=== PATIENT | male | born 1965 | race Caucasian/White ===

== ENCOUNTER 2017-12-31 10:22 | Inpatient (IN) | payer MEDICAID ==
[~2017-12-31] VITALS: Ht 165.1 cm; Wt 45.9 kg
[2017-12-31 10:27] VITALS: BP 110/90
[2017-12-31] MEDS ORDERED: ACETAMINOPHEN 325 MG TAB PO PRN (13:40)
[2017-12-31] MEDS ORDERED: HYDROcodone/APAP 7.5/325 MG 1 TAB PO PRN (13:40)
[2017-12-31 14:15] VITALS: BP 128/81
[2017-12-31 15:28] LABS: BASOPHILS % (AUTO) 0.4 % (0.0-2.0); EOSINOPHILS # (AUTO) 0.1 K/uL (0-0.4); HEMATOCRIT 41.5 % (36-52); HEMOGLOBIN 13.8 g/dL (12.0-18.0); LYMPHOCYTES # (AUTO) 0.8 K/uL (2.0-11.5); LYMPHOCYTES % (AUTO) 15.9 % (20.5-51.1); MEAN CORPUSCULAR HEMOGLOBIN 28 pg (27-31); MEAN CORPUSCULAR HGB CONC 33 g/dL (33-37); MONOCYTES # (AUTO) 0.3 K/uL (0.8-1.0); MONOCYTES % (AUTO) 5.9 % (1.7-9.3); NEUTROPHILS # (AUTO) 3.6 K/uL (1.8-7.7); NEUTROPHILS % (AUTO) 74.8 % (42.2-75.2); PLATELET COUNT (AUTO) 235 K/uL (140-450); RED BLOOD CELL COUNT(AUTO) 4.89 MIL/uL (4.20-6.10); RED CELL DISTRIBUTION WIDTH 13.4 % (11.6-13.7); WHITE BLOOD COUNT (AUTO) 4.8 K/uL (4.8-10.8)
[2017-12-31 15:45] LABS: CARBON DIOXIDE 26.7 mmol/L (21-32); CREATININE 0.5 mg/dL (0.7-1.3); POTASSIUM 4.6 mmol/L (3.5-5.1)
[2017-12-31 15:51] LABS: ANION GAP 14.9 (8-16)
[2017-12-31 15:57] LABS: CHOL/HDL RATIO 1.8 (1-4.5); FREE T4 (FREE THYROXINE) 0.86 ng/dL (0.76-1.46); MAGNESIUM 1.9 mg/dL (1.8-2.4); PHOSPHORUS 3.8 mg/dL (2.5-4.9); THYROID STIMULATING HORMONE 2.6 uIU/mL (0.34-3.74)
[2017-12-31 16:00] VITALS: BP 122/83
[2017-12-31] MEDS: DEXT 5% / NACL 0.9% 500 ML IV SCH (18:00)
[2017-12-31] MEDS ORDERED: METOCLOPRAMIDE 10 MG/10 ML SYRP UDC GT PRN (18:10)
[2017-12-31] MEDS ORDERED: SODIUM PHOSPHATE 118 ML ENEM RC PRN (18:10)
[2017-12-31] MEDS ORDERED: ALBUTEROL 0.083% 2.5 MG/3 ML NEBU INH PRN (18:10)
[2017-12-31] MEDS ORDERED: BISACODYL 10 MG SUPP RC PRN (18:10)
[2017-12-31] MEDS ORDERED: NYSTATIN CRE 100 MU/GM 15 GM TUBE TP PRN (18:30)
[2017-12-31] MEDS ORDERED: guaiFENesin 600 MG TABER PO PRN (18:30)
[2017-12-31] MEDS: FLUTICASONE PROPIONATE 100 MCG/ACTUATION INH IH SCH (19:30)
[2017-12-31 20:00] VITALS: BP 130/90
[2017-12-31] MEDS: SODIUM CHLORIDE 1 GM TAB GT SCH (21:00)
[2017-12-31] MEDS: levETIRAcetam 100 MG/ML ORASYR GT SCH (21:00)
[2017-12-31] MEDS: DOCUSATE SODIUM 100 MG GELCAP PO SCH (21:00)
[2017-12-31] MEDS: risperiDONE 1 MG TAB PO SCH (21:00)
[2017-12-31] MEDS: BUDESONIDE 0.5 MG/2 ML NEBU INH SCH (21:14)
[2018-01-01] VITALS: BP 111/76
[2018-01-01] MEDS: DEXT 5% / NACL 0.9% 500 ML IV SCH ×3 (02:20→19:01)
[2018-01-01 04:00] VITALS: BP 120/72
[2018-01-01 06:24] LABS: BASOPHILS % (AUTO) 0.3 % (0.0-2.0); EOSINOPHILS # (AUTO) 0.1 K/uL (0-0.4); EOSINOPHILS % (AUTO) 1.7 % (0.0-4.0); HEMATOCRIT 39.1 % (36-52); HEMOGLOBIN 13.1 g/dL (12.0-18.0); LYMPHOCYTES # (AUTO) 1.1 K/uL (2.0-11.5); LYMPHOCYTES % (AUTO) 18.7 % (20.5-51.1); MEAN CORPUSCULAR HEMOGLOBIN 28 pg (27-31); MEAN CORPUSCULAR HGB CONC 34 g/dL (33-37); MEAN CORPUSCULAR VOLUME 84.6 fL (80-94); MONOCYTES # (AUTO) 0.7 K/uL (0.8-1.0); MONOCYTES % (AUTO) 10.9 % (1.7-9.3); NEUTROPHILS # (AUTO) 4.1 K/uL (1.8-7.7); NEUTROPHILS % (AUTO) 68.4 % (42.2-75.2); PLATELET COUNT (AUTO) 234 K/uL (140-450); RED BLOOD CELL COUNT(AUTO) 4.62 MIL/uL (4.20-6.10); RED CELL DISTRIBUTION WIDTH 13.7 % (11.6-13.7)
[2018-01-01] MEDS: LEVOTHYROXINE 0.05 MG TAB GT SCH (06:28)
[2018-01-01 06:39] LABS: MAGNESIUM 1.9 mg/dL (1.8-2.4); PHOSPHORUS 3.6 mg/dL (2.5-4.9)
[2018-01-01 06:40] LABS: ANION GAP 10.7 (8-16); CARBON DIOXIDE 25.8 mmol/L (21-32); CREATININE 0.4 mg/dL (0.7-1.3); POTASSIUM 3.5 mmol/L (3.5-5.1)
[2018-01-01] MEDS: BUDESONIDE 0.5 MG/2 ML NEBU INH SCH ×2 (06:50→19:11)
[2018-01-01] MEDS: FLUTICASONE PROPIONATE 100 MCG/ACTUATION INH IH SCH ×2 (07:30→21:00)
[2018-01-01 08:00] VITALS: BP 105/86
[2018-01-01] MEDS: MONTELUKAST SODIUM 10 MG TAB GT SCH (09:00)
[2018-01-01] MEDS: DOCUSATE SODIUM 100 MG GELCAP PO SCH (09:00)
[2018-01-01] MEDS: risperiDONE 1 MG TAB PO SCH ×2 (09:00→21:04)
[2018-01-01] MEDS: hydrOXYzine HCL 10 MG TAB PO SCH ×3 (09:00→18:31)
[2018-01-01] MEDS: LACTULOSE 20 GM/30 ML UDC PO SCH (09:00)
[2018-01-01] MEDS: LORATADINE 10 MG TAB PO SCH (09:00)
[2018-01-01] MEDS: levETIRAcetam 100 MG/ML ORASYR GT SCH ×2 (09:00→21:04)
[2018-01-01] MEDS: BACLOFEN 10 MG TAB PO SCH ×3 (09:00→18:30)
[2018-01-01] MEDS: carBAMazepine 200 MG TAB PO SCH ×3 (09:00→18:31)
[2018-01-01] MEDS: SODIUM CHLORIDE 1 GM TAB PO SCH (09:00)
[2018-01-01] MEDS ORDERED: ALBUTEROL 2 MG/5 ML ORASYR GT SCH (09:00)
[2018-01-01] MEDS: FLUTICASONE NASAL 50 MCG/ACTUATION 16 GM BTL NS SCH (12:32)
[2018-01-01 16:00] VITALS: BP 126/84
[2018-01-01 16:03] LABS: APPEARANCE,URINE CLEAR (CLEAR); BILIRUBIN,URINE NEGATIVE (NEGATIVE); BLOOD, URINE NEGATIVE (NEGATIVE); COLOR,URINE YELLOW (YELLOW); LEUKOCYTE ESTERASE ,URINE NEGATIVE (NEGATIVE); NITRITE, URINE NEGATIVE (NEGATIVE); UGLUCOSE NEGATIVE (NEGATIVE)
[2018-01-01] MEDS ORDERED: CHLORHEXADINE GLUC 2% CLOTH TP SCH (18:00)
[2018-01-01] MEDS ORDERED: MUPIROCIN 2% OINT 22 GM TUBE TP SCH (18:30)
[2018-01-01] MEDS: DOCUSATE 100 MG/10 ML UDC PO SCH (21:04)
[2018-01-01] MEDS: SODIUM CHLORIDE 1 GM TAB GT SCH (21:06)
[2018-01-01 23:42] VITALS: BP 122/88
[2018-01-02] MEDS: DEXT 5% / NACL 0.9% 500 ML IV SCH ×2 (03:01→11:40)
[2018-01-02] MEDS: FLUTICASONE PROPIONATE 100 MCG/ACTUATION INH IH SCH (06:32)
[2018-01-02] MEDS: LEVOTHYROXINE 0.05 MG TAB GT SCH (06:32)
[2018-01-02 06:38] LABS: BASOPHILS % (AUTO) 0.6 % (0.0-2.0); EOSINOPHILS # (AUTO) 0.2 K/uL (0-0.4); HEMATOCRIT 38.9 % (36-52); LYMPHOCYTES # (AUTO) 1.2 K/uL (2.0-11.5); MEAN CORPUSCULAR HEMOGLOBIN 28 pg (27-31); MEAN CORPUSCULAR HGB CONC 34 g/dL (33-37); MEAN CORPUSCULAR VOLUME 84.4 fL (80-94); MONOCYTES # (AUTO) 0.5 K/uL (0.8-1.0); MONOCYTES % (AUTO) 10.3 % (1.7-9.3); NEUTROPHILS # (AUTO) 2.8 K/uL (1.8-7.7); NEUTROPHILS % (AUTO) 58.1 % (42.2-75.2); PLATELET COUNT (AUTO) 214 K/uL (140-450); RED BLOOD CELL COUNT(AUTO) 4.61 MIL/uL (4.20-6.10); RED CELL DISTRIBUTION WIDTH 13.6 % (11.6-13.7); WHITE BLOOD COUNT (AUTO) 4.8 K/uL (4.8-10.8)
[2018-01-02 07:06] LABS: ANION GAP 10.8 (8-16); CARBON DIOXIDE 26.7 mmol/L (21-32); CREATININE 0.5 mg/dL (0.7-1.3); POTASSIUM 3.5 mmol/L (3.5-5.1)
[2018-01-02 08:00] VITALS: BP 135/78
[2018-01-02] MEDS: BUDESONIDE 0.5 MG/2 ML NEBU INH SCH (08:11)
[2018-01-02] MEDS: hydrOXYzine HCL 10 MG TAB PO SCH ×2 (09:38→14:33)
[2018-01-02] MEDS: levETIRAcetam 100 MG/ML ORASYR GT SCH (09:38)
[2018-01-02] MEDS: BACLOFEN 10 MG TAB PO SCH ×2 (09:39→14:33)
[2018-01-02] MEDS: risperiDONE 1 MG TAB PO SCH (09:39)
[2018-01-02] MEDS: MONTELUKAST SODIUM 10 MG TAB GT SCH (09:39)
[2018-01-02] MEDS: LORATADINE 10 MG TAB PO SCH (09:39)
[2018-01-02] MEDS: carBAMazepine 200 MG TAB PO SCH ×2 (09:40→14:33)
[2018-01-02] MEDS: LACTULOSE 20 GM/30 ML UDC PO SCH (09:40)
[2018-01-02] MEDS: DOCUSATE 100 MG/10 ML UDC PO SCH (09:40)
[2018-01-02] MEDS: SODIUM CHLORIDE 1 GM TAB PO SCH (09:46)
[2018-01-02] MEDS: FLUTICASONE NASAL 50 MCG/ACTUATION 16 GM BTL NS SCH (09:47)
[2018-01-02] MEDS ORDERED: ATA10 PO (12:40)
[2018-01-02] MEDS ORDERED: BISA10SU46 RC (12:40)
[2018-01-02] MEDS ORDERED: BACL10TA4 PO (12:40)
[2018-01-02] MEDS ORDERED: CHLO118S2 TP (12:40)
[2018-01-02] MEDS ORDERED: COL100L PO (12:40)
[2018-01-02] MEDS ORDERED: FLONAS NS (12:40)
[2018-01-02] MEDS ORDERED: CARB200T7 PO (12:40)
[2018-01-02] MEDS ORDERED: RIS1 PO (12:41)
[2018-01-02] MEDS ORDERED: MYCC TP (12:41)
[2018-01-02] MEDS ORDERED: SAL1 PO (12:41)
[2018-01-02] MEDS ORDERED: LORA10TA19 PO (12:41)
[2018-01-02] MEDS ORDERED: LACT10SO11 PO (12:41)
[2018-01-02] MEDS ORDERED: SYN.05 GT (12:41)
[2018-01-02] MEDS ORDERED: SAL1 GT (12:41)
[2018-01-02] MEDS ORDERED: KEP500L GT (12:41)
[2018-01-02] MEDS ORDERED: BACTO TP (12:41)
[2018-01-02] MEDS ORDERED: LAM200 GT (12:41)
[2018-01-02] MEDS ORDERED: MONT10TA35 GT (12:41)
== END 2018-01-02 14:50 | disposition home or self-care (01) | DRG 252 ==
LOC: MED 10:22 → MTU 13:48
PROVIDERS: ADMIT Family Medicine; ATTEND Family Medicine
PROC: 0D20XYZ Change Other Device in Upper Intestinal Tract, External Approach (ICD-10-PCS; principal; 2017-12-31)
DX: K94.23 Gastrostomy malfunction (principal); R53.2 Functional quadriplegia; E87.1 Hypo-osmolality and hyponatremia; M41.9 Scoliosis, unspecified; G40.909 Epilepsy, unspecified, not intractable, without status epilepticus; K21.9 Gastro-esophageal reflux disease without esophagitis; E03.9 Hypothyroidism, unspecified; K59.09 Other constipation; F39 Unspecified mood [affective] disorder; J45.909 Unspecified asthma, uncomplicated; R58 Hemorrhage, not elsewhere classified; R63.6 Underweight; Z68.1 Body mass index [BMI] 19.9 or less, adult; Z88.0 Allergy status to penicillin; Z88.8 Allergy status to other drugs, medicaments and biological substances
CPT/HCPCS: 36415; 71045; 74018; 80048; 81003; 82150; 83036; 83605; 83690; 83735; 83880; 84100; 84439; 84443; 84484; 85025; 85610; 85730; 87081; 93005; 94640; 99285; C1758; J7042; J7613; J7626; Q0092

== ENCOUNTER 2018-08-06 21:24 | Inpatient (IN) | payer MEDICAID ==
[~2018-08-06] VITALS: Ht 165.1 cm; Wt 53.5 kg
[2018-08-06 21:24] VITALS: BP 140/62
[~2018-08-06 21:24] MED LIST: ATA10 PO; BACL10TA4 PO; BACTO TP; BISA10SU46 RC; CARB200T7 PO; CHLO118S2 TP; COL100L PO; FLONAS NS; KEP500L GT; LACT10SO11 PO; LAM200 GT; LORA10TA19 PO; MONT10TA35 GT; MYCC TP; RIS1 PO; SODI100076 GT; SODI100076 PO; SYN.05 GT
[2018-08-06] MEDS ORDERED: METO5SOL19 GT (22:08)
[2018-08-06] MEDS ORDERED: COM25S RC (22:08)
[2018-08-06] MEDS ORDERED: MULT9LIQ5 PO (22:08)
[2018-08-06] MEDS ORDERED: PRON INH (22:08)
[2018-08-06] MEDS ORDERED: POTA20SO15 PO (22:08)
[2018-08-06] MEDS ORDERED: [UNRECOGNIZED DRUG - CODE] PO (22:08)
[2018-08-06] MEDS ORDERED: ALBU4TAB21 PO (22:08)
[2018-08-06] MEDS ORDERED: CARB100T PO (22:08)
[2018-08-06] MEDS ORDERED: MIRABULK PO (22:08)
[2018-08-06 22:14] LABS: HEMATOCRIT 38.2 % (36-52); HEMOGLOBIN 12.5 g/dL (12.0-18.0); MEAN CORPUSCULAR HEMOGLOBIN 28 pg (27-31); MEAN CORPUSCULAR HGB CONC 33 g/dL (33-37); MEAN CORPUSCULAR VOLUME 85.5 fL (80-94); PLATELET COUNT (AUTO) 232 K/uL (140-450); RED BLOOD CELL COUNT(AUTO) 4.47 MIL/uL (4.20-6.10); RED CELL DISTRIBUTION WIDTH 13.1 % (11.6-13.7); WHITE BLOOD COUNT (AUTO) 9.5 K/uL (4.8-10.8)
[2018-08-06 22:26] LABS: EOSINOPHILS % (MANUAL) 2 % (0-4); LYMPHOCYTES % (MANUAL) 7 % (20-46); MONOCYTES % (MANUAL) 2 % (5-12)
[2018-08-06 22:29] LABS: ANION GAP 12.5 (8-16); CARBON DIOXIDE 28.7 mmol/L (21-32); CREATININE 0.4 mg/dL (0.7-1.3); POTASSIUM 4.2 mmol/L (3.5-5.1); TOTAL BILIRUBIN 0.8 mg/dL (0.0-1.0)
[2018-08-06] MEDS ORDERED: NACL 0.9% 1,000 ML IV ONE (22:35)
[2018-08-06] MEDS: NACL 0.9% 1,000 ML IV SCH (23:22)
[2018-08-06] MEDS ORDERED: ZOLPIDEM 5 MG TAB PO PRN (23:25)
[2018-08-06] MEDS ORDERED: DOCUSATE SODIUM 100 MG GELCAP PO PRN (23:25)
[2018-08-06] MEDS ORDERED: MORPHINE SULFATE 4 MG/ML SYR IVP PRN (23:25)
[2018-08-06] MEDS ORDERED: LORazepam 2 MG/ML VIAL IM/IVP PRN (23:25)
[2018-08-06] MEDS ORDERED: ONDANSETRON 4 MG/2 ML VIAL IM/IVP PRN (23:25)
[2018-08-06] MEDS ORDERED: ACETAMINOPHEN 325 MG TAB PO PRN (23:25)
[2018-08-06 23:55] LABS: PROTHROMBIN TIME 9.7 secs (10.8-13.4)
[2018-08-07 00:05] VITALS: BP 152/90
[2018-08-07 00:17] LABS: CHOL/HDL RATIO 1.9 (1-4.5); FREE T4 (FREE THYROXINE) 0.81 ng/dL (0.76-1.46); MAGNESIUM 1.9 mg/dL (1.8-2.4); PHOSPHORUS 2.3 mg/dL (2.5-4.9); THYROID STIMULATING HORMONE 3.05 uIU/mL (0.34-3.74)
[2018-08-07] MEDS ORDERED: LACT10SO1 PO (01:12)
[2018-08-07] MEDS ORDERED: SODI100076 PO (01:12)
[2018-08-07] MEDS ORDERED: ACETAMINOPHEN 325 MG TAB GT PRN (01:40)
[2018-08-07] MEDS ORDERED: ALBUTEROL SULFATE/IPRATROPIU 3 ML SOL IH PRN (01:40)
[2018-08-07 04:00] VITALS: BP 165/87
[2018-08-07] MEDS: cefTRIAXone 2,000 MG in DEXTROSE 5% 100 ML IV SCH (04:50)
[2018-08-07] MEDS ORDERED: CLINDAMYCIN 600 MG in DEXTROSE 5% 50 ML IV SCH (05:00)
[2018-08-07] MEDS ORDERED: PIPER/TAZO 3.375GM/D5W PREMIX 50 ML IV SCH (05:00)
[2018-08-07] MEDS ORDERED: cefTRIAXone 2,000 MG VIAL ONE (06:22)
[2018-08-07 06:45] LABS: BASOPHILS % (AUTO) 0.2 % (0.0-2.0); EOSINOPHILS # (AUTO) 0.2 K/uL (0-0.4); EOSINOPHILS % (AUTO) 2.4 % (0.0-4.0); HEMATOCRIT 37.9 % (36-52); HEMOGLOBIN 12.6 g/dL (12.0-18.0); LYMPHOCYTES # (AUTO) 1.2 K/uL (2.0-11.5); LYMPHOCYTES % (AUTO) 14.5 % (20.5-51.1); MEAN CORPUSCULAR HEMOGLOBIN 28 pg (27-31); MEAN CORPUSCULAR HGB CONC 33 g/dL (33-37); MEAN CORPUSCULAR VOLUME 85.1 fL (80-94); MONOCYTES # (AUTO) 0.7 K/uL (0.8-1.0); MONOCYTES % (AUTO) 8.3 % (1.7-9.3); NEUTROPHILS # (AUTO) 5.9 K/uL (1.8-7.7); NEUTROPHILS % (AUTO) 74.6 % (42.2-75.2); PLATELET COUNT (AUTO) 239 K/uL (140-450); RED BLOOD CELL COUNT(AUTO) 4.45 MIL/uL (4.20-6.10); RED CELL DISTRIBUTION WIDTH 13.3 % (11.6-13.7)
[2018-08-07 06:53] LABS: ANION GAP 11.8 (8-16); CARBON DIOXIDE 28.2 mmol/L (21-32); CREATININE 0.5 mg/dL (0.7-1.3)
[2018-08-07 07:00] LABS: MAGNESIUM 1.8 mg/dL (1.8-2.4)
[2018-08-07 08:00] VITALS: BP 151/93
[2018-08-07] MEDS: LACTOBACILLUS RHAMNOSUS GG 1 EACH CAP PO SCH (08:32)
[2018-08-07] MEDS: LACTULOSE 20 GM/30 ML UDC PO SCH (08:33)
[2018-08-07] MEDS: BACLOFEN 10 MG TAB PO SCH ×3 (08:33→17:28)
[2018-08-07] MEDS: SODIUM CHLORIDE 1 GM TAB GT SCH ×2 (08:33→21:02)
[2018-08-07] MEDS: risperiDONE 1 MG TAB GT SCH ×2 (08:33→21:00)
[2018-08-07] MEDS: LEVOTHYROXINE 0.05 MG TAB GT SCH (08:34)
[2018-08-07] MEDS: SODIUM PHOS / POTASSIUM PHOS 1 PKT PDR GT SCH ×3 (08:34→17:28)
[2018-08-07] MEDS: hydrOXYzine HCL 10 MG TAB GT SCH ×3 (08:34→17:28)
[2018-08-07] MEDS: levETIRAcetam 100 MG/ML ORASYR GT SCH ×2 (08:34→21:01)
[2018-08-07] MEDS ORDERED: hydrOXYzine HCL 10 MG TAB PO SCH (09:00)
[2018-08-07] MEDS ORDERED: SODIUM CHLORIDE 1 GM TAB PO SCH ×2 (09:00→21:00)
[2018-08-07] MEDS ORDERED: METOCLOPRAMIDE 10 MG/10 ML SYRP UDC GT SCH (09:00)
[2018-08-07] MEDS ORDERED: risperiDONE 1 MG TAB PO SCH (09:00)
[2018-08-07] MEDS: NACL 0.9% 1,000 ML IV SCH ×2 (10:48→18:55)
[2018-08-07] MEDS: CARBAMAZEPINE 300 MG PO SCH ×3 (10:59→17:28)
[2018-08-07 11:24] LABS: ANION GAP 7.5 (8-16); CARBON DIOXIDE 30.1 mmol/L (21-32); CREATININE 0.4 mg/dL (0.7-1.3); POTASSIUM 3.6 mmol/L (3.5-5.1)
[2018-08-07 11:45] VITALS: BP 130/79
[2018-08-07] MEDS: CLINDAMYCIN PHOS 600MG/D5W PM 50 ML IV SCH ×2 (12:15→21:02)
[2018-08-07 13:05] LABS: APPEARANCE,URINE CLEAR (CLEAR); BILIRUBIN,URINE NEGATIVE (NEGATIVE); BLOOD, URINE NEGATIVE (NEGATIVE); COLOR,URINE YELLOW (YELLOW); LEUKOCYTE ESTERASE ,URINE NEGATIVE (NEGATIVE); NITRITE, URINE NEGATIVE (NEGATIVE); UGLUCOSE TRACE (NEGATIVE)
[2018-08-07 13:07] LABS: BARBITURATE, URINE NEG. ng/ml (NEG <=200); BENZODIAZEPINE, URINE NEG. ng/mL (NEG <=200); CANNABINOID, URINE NEG. ng/mL (NEG <=50); COCAINE, URINE NEG. ng/mL (NEG <=300); OPIATE, URINE NEG. ng/mL (NEG <=2000); PHENCYCLIDINE SCREEN,URINE NEG. ng/mL (NEG <=25)
[2018-08-07 17:19] VITALS: BP 161/89
[2018-08-07] MEDS: HYDROcodone/APAP 5/325 MG 1 TAB TAB PO PRN (17:28)
[2018-08-07 17:34] LABS: ANION GAP 10.4 (8-16); CARBON DIOXIDE 29.2 mmol/L (21-32); CREATININE 0.4 mg/dL (0.7-1.3); POTASSIUM 3.6 mmol/L (3.5-5.1)
[2018-08-07 20:00] VITALS: BP 109/66
[2018-08-07 23:34] LABS: ANION GAP 10.2 (8-16); CARBON DIOXIDE 27.4 mmol/L (21-32); CREATININE 0.4 mg/dL (0.7-1.3); POTASSIUM 3.6 mmol/L (3.5-5.1)
[2018-08-08] VITALS: BP 135/72
[2018-08-08 04:00] VITALS: BP 141/84
[2018-08-08] MEDS: cefTRIAXone 2,000 MG in DEXTROSE 5% 100 ML IV SCH (05:04)
[2018-08-08] MEDS: HYDROcodone/APAP 5/325 MG 1 TAB TAB PO PRN ×2 (05:04→21:38)
[2018-08-08] MEDS: CLINDAMYCIN PHOS 600MG/D5W PM 50 ML IV SCH ×3 (06:19→21:37)
[2018-08-08] MEDS: LEVOTHYROXINE 0.05 MG TAB GT SCH (06:20)
[2018-08-08] MEDS: NACL 0.9% 1,000 ML IV SCH ×2 (06:20→09:34)
[2018-08-08] MEDS: SODIUM PHOS / POTASSIUM PHOS 1 PKT PDR GT SCH ×3 (06:20→16:26)
[2018-08-08 06:55] LABS: BASOPHILS % (AUTO) 0.4 % (0.0-2.0); EOSINOPHILS # (AUTO) 0.1 K/uL (0-0.4); HEMATOCRIT 33.7 % (36-52); HEMOGLOBIN 11.2 g/dL (12.0-18.0); LYMPHOCYTES # (AUTO) 0.9 K/uL (2.0-11.5); MEAN CORPUSCULAR HEMOGLOBIN 29 pg (27-31); MEAN CORPUSCULAR HGB CONC 33 g/dL (33-37); MEAN CORPUSCULAR VOLUME 85.7 fL (80-94); MONOCYTES # (AUTO) 0.5 K/uL (0.8-1.0); MONOCYTES % (AUTO) 11.4 % (1.7-9.3); NEUTROPHILS % (AUTO) 66.2 % (42.2-75.2); PLATELET COUNT (AUTO) 202 K/uL (140-450); RED BLOOD CELL COUNT(AUTO) 3.94 MIL/uL (4.20-6.10); RED CELL DISTRIBUTION WIDTH 13.5 % (11.6-13.7); WHITE BLOOD COUNT (AUTO) 4.5 K/uL (4.8-10.8)
[2018-08-08] MEDS ORDERED: MORPHINE SULFATE 4 MG/ML SYR IVP PRN (07:38)
[2018-08-08 07:41] LABS: ANION GAP 9.5 (8-16); CREATININE 0.5 mg/dL (0.7-1.3); POTASSIUM 3.5 mmol/L (3.5-5.1)
[2018-08-08 07:50] LABS: MAGNESIUM 1.8 mg/dL (1.8-2.4); PHOSPHORUS 3.5 mg/dL (2.5-4.9)
[2018-08-08 08:00] VITALS: BP 142/93
[2018-08-08] MEDS: LACTULOSE 20 GM/30 ML UDC PO SCH (09:22)
[2018-08-08] MEDS: CALCIUM CARB 600 MG TAB GT SCH (09:22)
[2018-08-08] MEDS: LACTOBACILLUS RHAMNOSUS GG 1 EACH CAP PO SCH (09:23)
[2018-08-08] MEDS: BACLOFEN 10 MG TAB PO SCH ×3 (09:24→16:26)
[2018-08-08] MEDS: hydrOXYzine HCL 10 MG TAB GT SCH ×3 (09:24→16:27)
[2018-08-08] MEDS: risperiDONE 1 MG TAB GT SCH ×2 (09:25→21:38)
[2018-08-08] MEDS: CARBAMAZEPINE 300 MG PO SCH (09:26)
[2018-08-08] MEDS: levETIRAcetam 100 MG/ML ORASYR GT SCH ×2 (09:27→21:39)
[2018-08-08] MEDS: SODIUM CHLORIDE 1 GM TAB GT SCH ×2 (09:28→21:39)
[2018-08-08] MEDS: TEGRETOL GT SCH ×2 (12:26→18:44)
[2018-08-08 16:00] VITALS: BP 150/93
[2018-08-08] MEDS: CHLORHEXADINE GLUC 2% CLOTH TP SCH (16:27)
[2018-08-08] MEDS: MUPIROCIN CA NASAL 2% 1GM TUBE NS SCH (16:27)
[2018-08-08] MEDS: CYCLOBENZAPRINE 10 MG TAB PO SCH (21:38)
[2018-08-09] MEDS: NACL 0.9% 1,000 ML IV SCH ×2 (03:50→23:30)
[2018-08-09 04:00] VITALS: BP 108/77
[2018-08-09] MEDS: cefTRIAXone 2,000 MG in DEXTROSE 5% 100 ML IV SCH (04:01)
[2018-08-09] MEDS: CLINDAMYCIN PHOS 600MG/D5W PM 50 ML IV SCH ×3 (05:51→20:12)
[2018-08-09] MEDS: LEVOTHYROXINE 0.05 MG TAB GT SCH (05:52)
[2018-08-09] MEDS: HYDROcodone/APAP 5/325 MG 1 TAB TAB PO PRN ×2 (05:52→13:23)
[2018-08-09] MEDS: SODIUM PHOS / POTASSIUM PHOS 1 PKT PDR GT SCH ×3 (06:36→16:39)
[2018-08-09 08:00] VITALS: BP 136/90
[2018-08-09] MEDS: LACTOBACILLUS RHAMNOSUS GG 1 EACH CAP PO SCH (09:37)
[2018-08-09] MEDS: risperiDONE 1 MG TAB GT SCH ×2 (09:37→20:15)
[2018-08-09] MEDS: SODIUM CHLORIDE 1 GM TAB GT SCH (09:37)
[2018-08-09] MEDS: CYCLOBENZAPRINE 10 MG TAB PO SCH ×3 (09:38→16:48)
[2018-08-09] MEDS: hydrOXYzine HCL 10 MG TAB GT SCH ×3 (09:39→16:48)
[2018-08-09] MEDS: CALCIUM CARB 600 MG TAB GT SCH (09:39)
[2018-08-09] MEDS: levETIRAcetam 100 MG/ML ORASYR GT SCH ×2 (09:41→20:15)
[2018-08-09] MEDS: TEGRETOL GT SCH ×3 (09:42→16:48)
[2018-08-09] MEDS: LACTULOSE 20 GM/30 ML UDC PO SCH (09:43)
[2018-08-09 16:00] VITALS: BP 149/89
[2018-08-09] MEDS: CHLORHEXADINE GLUC 2% CLOTH TP SCH (16:40)
[2018-08-09] MEDS: MUPIROCIN CA NASAL 2% 1GM TUBE NS SCH (16:40)
[2018-08-09 21:27] LABS: ANION GAP 8.5 (8-16); CARBON DIOXIDE 32.9 mmol/L (21-32); CREATININE 0.5 mg/dL (0.7-1.3); POTASSIUM 3.4 mmol/L (3.5-5.1)
[2018-08-10 04:00] VITALS: BP 151/89
[2018-08-10] MEDS: cefTRIAXone 2,000 MG in DEXTROSE 5% 100 ML IV SCH (04:20)
[2018-08-10] MEDS: CLINDAMYCIN PHOS 600MG/D5W PM 50 ML IV SCH ×2 (05:34→13:22)
[2018-08-10 05:43] LABS: BASOPHILS % (AUTO) 0.3 % (0.0-2.0); EOSINOPHILS # (AUTO) 0.3 K/uL (0-0.4); HEMATOCRIT 33.3 % (36-52); LYMPHOCYTES # (AUTO) 0.7 K/uL (2.0-11.5); LYMPHOCYTES % (AUTO) 14.4 % (20.5-51.1); MEAN CORPUSCULAR HEMOGLOBIN 28 pg (27-31); MEAN CORPUSCULAR HGB CONC 33 g/dL (33-37); MEAN CORPUSCULAR VOLUME 85.8 fL (80-94); MONOCYTES # (AUTO) 0.7 K/uL (0.8-1.0); NEUTROPHILS # (AUTO) 3.3 K/uL (1.8-7.7); NEUTROPHILS % (AUTO) 65.3 % (42.2-75.2); PLATELET COUNT (AUTO) 202 K/uL (140-450); RED BLOOD CELL COUNT(AUTO) 3.89 MIL/uL (4.20-6.10); RED CELL DISTRIBUTION WIDTH 13.3 % (11.6-13.7)
[2018-08-10 06:07] LABS: ANION GAP 9.6 (8-16); CREATININE 0.5 mg/dL (0.7-1.3); POTASSIUM 3.6 mmol/L (3.5-5.1)
[2018-08-10] MEDS: LEVOTHYROXINE 0.05 MG TAB GT SCH (06:28)
[2018-08-10] MEDS: SODIUM PHOS / POTASSIUM PHOS 1 PKT PDR GT SCH ×3 (07:34→16:49)
[2018-08-10 08:00] VITALS: BP 126/84
[2018-08-10] MEDS: CYCLOBENZAPRINE 10 MG TAB PO SCH ×3 (09:13→16:49)
[2018-08-10] MEDS: CALCIUM CARB 600 MG TAB GT SCH (09:15)
[2018-08-10] MEDS: LACTOBACILLUS RHAMNOSUS GG 1 EACH CAP PO SCH (09:15)
[2018-08-10] MEDS: hydrOXYzine HCL 10 MG TAB GT SCH ×3 (09:15→16:49)
[2018-08-10] MEDS: risperiDONE 1 MG TAB GT SCH (09:15)
[2018-08-10] MEDS: levETIRAcetam 100 MG/ML ORASYR GT SCH (09:16)
[2018-08-10] MEDS: LACTULOSE 20 GM/30 ML UDC PO SCH (09:16)
[2018-08-10] MEDS: TEGRETOL GT SCH ×2 (09:26→13:23)
[2018-08-10] MEDS ORDERED: CLIN300C2 PO (11:55)
[2018-08-10] MEDS ORDERED: CEPH250C16 PO (11:55)
[2018-08-10] MEDS ORDERED: LACT10CA1 PO (11:56)
[2018-08-10] MEDS ORDERED: SODI100076 PO (12:07)
[2018-08-10] MEDS ORDERED: CYCL10TA14 PO (14:35)
[2018-08-10] MEDS: NACL 0.9% 1,000 ML IV SCH (14:58)
[2018-08-10 16:00] VITALS: BP 139/86
[2018-08-10] MEDS ORDERED: BACTNA NS (16:02)
[2018-08-10] MEDS ORDERED: CHLO118S2 TP (16:02)
[2018-08-10] MEDS: MUPIROCIN CA NASAL 2% 1GM TUBE NS SCH (16:50)
[2018-08-10] MEDS: CHLORHEXADINE GLUC 2% CLOTH TP SCH (16:50)
[2018-08-10] MEDS ORDERED: SODIUM CHLORIDE 1 GM TAB PO SCH (21:00)
== END 2018-08-10 17:15 | disposition home or self-care (01) | DRG 137 ==
LOC: MED 21:24 → MTU 23:24
PROVIDERS: ADMIT General Practice; ATTEND General Practice
PROC: 2W3BX2Z Immobilization of Left Upper Arm using Cast (ICD-10-PCS; principal; 2018-08-06)
DX: J69.0 Pneumonitis due to inhalation of food and vomit (principal); R53.2 Functional quadriplegia; E83.39 Other disorders of phosphorus metabolism; E87.1 Hypo-osmolality and hyponatremia; M41.9 Scoliosis, unspecified; S42.402A Unspecified fracture of lower end of left humerus, initial encounter for closed fracture; F79 Unspecified intellectual disabilities; G40.909 Epilepsy, unspecified, not intractable, without status epilepticus; E03.9 Hypothyroidism, unspecified; K21.9 Gastro-esophageal reflux disease without esophagitis; K59.00 Constipation, unspecified; J45.909 Unspecified asthma, uncomplicated; Z88.0 Allergy status to penicillin; Z88.8 Allergy status to other drugs, medicaments and biological substances; Z86.73 Personal history of transient ischemic attack (TIA), and cerebral infarction without residual deficits; E05.90 Thyrotoxicosis, unspecified without thyrotoxic crisis or storm; E86.1 Hypovolemia; X58.XXXA Exposure to other specified factors, initial encounter; Y93.89 Activity, other specified; Y92.89 Other specified places as the place of occurrence of the external cause; Y99.8 Other external cause status
CPT/HCPCS: 36415; 71045; 73060; 73090; 80048; 80053; 80305; 81003; 82150; 83036; 83690; 83735; 83880; 83930; 83935; 84100; 84300; 84439; 84443; 84484; 85025; 85610; 85730; 87081; 93971; 96360; 99285; J0696; J1644; J2060; J3490; J7030; J7060; J7620; Q0092

== ENCOUNTER 2018-09-11 12:26 | Inpatient (IN) | payer MEDICAID ==
[~2018-09-11] VITALS: Ht 165.1 cm; Wt 71.7 kg
[2018-09-11 12:26] VITALS: BP 88/53
[~2018-09-11 12:26] MED LIST changes: +ALBU4TAB21 PO; -BACL10TA4 PO; +BACTNA NS; -BACTO TP; -BISA10SU46 RC; +CARB100T PO; -CARB200T7 PO; +CEPH250C16 PO; +CLIN300C2 PO; -COL100L PO; +COM25S RC; +CYCL10TA14 PO; +LACT10CA1 PO; +LACT10SO1 PO; -LACT10SO11 PO; +METO5SOL19 GT; +MIRABULK PO; +MULT9LIQ5 PO; +POTA20LI41 PO; +PRON INH; -SODI100076 GT; +[UNRECOGNIZED DRUG - CODE] PO
--- NOTE | 2018-09-11 12:26 | NUR ---
PATIENT BIB BLS TO ER BED 4.
--- NOTE | 2018-09-11 12:50 | NUR ---
PATIENT BIB AMS FROM [facility] WITH C/O FEVER X 2 DAYS, CONGESTED, N/V/D, GIVEN TYLENOL AT 0900 TODAY. PT IS APHSIC, UNABLE TO FOLLOW COMMANDS, NO S/S OF DISTRESS, CLEAR LUNG SOUNDS VANESA. ON RA, O2 SAT 99 %, SR ON MONITOR, INCONTINENT WITH B&B, CONTRACTURES TO ALL EXTREMITIES . FLACC 0, VSS; PATIENT POSITIONED FOR COMFORT; HOB ELEVATED; BEDRAILS UP X2; BED DOWN. ER MD MADE AWARE OF PT STATUS.
--- NOTE | 2018-09-11 12:51 | NUR ---
LEFT ARM WITH CAST NOTED, PER MEDICAL DELIVERY TECHNICIAN PT WAS FRACTURED LEFT ARM RECENTLY AND TREATED HERE AT ED VISIT LAST TIME.
--- NOTE | 2018-09-11 13:52 | NUR ---
Patient being evaluated by physician at bedside.
[2018-09-11] MEDS ORDERED: IPRATROPIUM 0.02% 0.5 MG/2.5 ML NEBU INH ONE (14:00)
[2018-09-11] MEDS ORDERED: NACL 0.9% 1,000 ML IV ONE (14:00)
[2018-09-11] MEDS ORDERED: ALBUTEROL 0.083% 2.5 MG/3 ML NEBU INH ONE (14:00)
[2018-09-11] MEDS ORDERED: methylPREDNISolone SS 125 MG/2 ML VIAL IVP ONE (14:10)
[2018-09-11 14:25] LABS: BASOPHILS % (AUTO) 0.4 % (0.0-2.0); EOSINOPHILS % (AUTO) 0.6 % (0.0-4.0); HEMATOCRIT 30.6 % (36-52); HEMOGLOBIN 10.3 g/dL (12.0-18.0); LYMPHOCYTES # (AUTO) 0.8 K/uL (2.0-11.5); LYMPHOCYTES % (AUTO) 10.6 % (20.5-51.1); MEAN CORPUSCULAR HEMOGLOBIN 28 pg (27-31); MEAN CORPUSCULAR HGB CONC 34 g/dL (33-37); MEAN CORPUSCULAR VOLUME 83.1 fL (80-94); MONOCYTES # (AUTO) 0.8 K/uL (0.8-1.0); NEUTROPHILS # (AUTO) 6.2 K/uL (1.8-7.7); NEUTROPHILS % (AUTO) 78.4 % (42.2-75.2); PLATELET COUNT (AUTO) 203 K/uL (140-450); RED BLOOD CELL COUNT(AUTO) 3.69 MIL/uL (4.20-6.10); RED CELL DISTRIBUTION WIDTH 13.2 % (11.6-13.7); WHITE BLOOD COUNT (AUTO) 7.9 K/uL (4.8-10.8)
[2018-09-11 14:33] LABS: PROTHROMBIN TIME 9.9 secs (10.8-13.4)
[2018-09-11 14:50] LABS: ALBUMIN 3.1 g/dL (3.4-5.0); CARBON DIOXIDE 29.7 mmol/L (21-32); CREATININE 0.5 mg/dL (0.7-1.3); TOTAL BILIRUBIN 0.2 mg/dL (0.0-1.0)
[2018-09-11 14:53] LABS: ANION GAP 8.3 (8-16)
[2018-09-11 14:56] LABS: BILIRUBIN,URINE NEGATIVE (NEGATIVE); BLOOD, URINE 1+ (NEGATIVE); COLOR,URINE YELLOW (YELLOW); LEUKOCYTE ESTERASE ,URINE 3+ (NEGATIVE); NITRITE, URINE POSITIVE (NEGATIVE); PH,URINE 7.5 (5.0-9.0); UGLUCOSE NEGATIVE (NEGATIVE)
[2018-09-11 15:02] LABS: APPEARANCE,URINE CLOUDY (CLEAR)
[2018-09-11 15:04] LABS: RBC,URINE 3-10 (FEW) /HPF (0-5); WBC,URINE 80-100 /HPF (0-5)
[2018-09-11] MEDS ORDERED: ceFAZolin 1,000 MG VIAL ONE (15:43)
[2018-09-11 16:05] VITALS: BP 122/77
--- NOTE | 2018-09-11 16:05 | NUR ---
Patient will be admitted to care of DR. CRAWLEY. Admited to TELEMETRY. Will go to room 108A. Belongings list completed. Report to GENIA WATERMAN AT BEDSIDE, PT IS IN STABLE CONDITION AT THIS TIME.
--- NOTE | 2018-09-11 16:05 | NUR ---
PATIENT ARRIVED FROM ER IN BED. SAFELY TRANSFERRED TO [facility] BED. NO DISTRESS NOTED. V/S STABLE. NO FEVER, NO VOMITING AT THIS TIME. AAOX1, APHASIC, SKIN COLOR APPROPRIATE TO ETHNICITY, WARM TO TOUCH. SKIN INTACT. GTUBE IN PLACE. LEFT FOREARM CAST IN PLACE DUE TO FRACTURE. IV SITE INTACT, PATENT, ON SALINE LOCK. ORIENTED PATIENT TO ROOM AND CALL LIGHT. UNABLE TO COMPREHEND. SAFETY MEASURES IN PLACE, CALL LIGHT WITHIN REACH. WILL CONTINUE TO MONITOR.
--- NOTE | 2018-09-11 18:00 | NUR ---
CALLED Elana SHELDON REGARDING ADMIT ORDERS. PER MD, HE WILL INPUT ADMIT ORDERS WHEN HE GETS HOME, HE IS CURRENTLY DRIVING HOME AT THIS TIME. WILL CONTINUE TO MONITOR.
--- NOTE | 2018-09-11 19:27 | NUR ---
GAVE REPORT TO PAINT STOCK CLERK NURSE FOR CONTINUITY OF CARE. PATIENT IN STABLE CONDITION
--- NOTE | 2018-09-11 19:30 | NUR ---
ASSUMED CARE OF PATIENT, AWAKE, APHASIC NOTED. CARE BOARD UPDATED. AWAITING FOR ORDERS FROM DR. CRAWLEY. CALL LIGHT WITHIN REACH. HOB ELEVATED.
[2018-09-11] MEDS ORDERED: [UNRECOGNIZED DRUG - REMARK] PO SCH (20:00)
[2018-09-11] MEDS ORDERED: NYSTATIN CRE 100 MU/GM 15 GM TUBE TP PRN (20:00)
[2018-09-11] MEDS ORDERED: CHLORHEXIDINE GLUCONATE TP SCH (20:00)
[2018-09-11] MEDS ORDERED: PROCHLORPERAZINE 25 MG SUPP RC PRN (20:00)
--- NOTE | 2018-09-11 20:00 | NUR ---
VITAL SIGNS STABLE. HOB ELEVATED AT ALL TIME. REPOSITIONED BY TORPEDO MAN. CALL LIGHT WITHIN REACH. CARE BOARD UPDATED.
[2018-09-11] MEDS ORDERED: ACETAMINOPHEN 325 MG TAB GT PRN (20:05)
[2018-09-11] MEDS ORDERED: ONDANSETRON 4 MG/2 ML VIAL IVP PRN (20:05)
[2018-09-11] MEDS ORDERED: ALBUTEROL 0.083% 2.5 MG/3 ML NEBU INH PRN (20:05)
[2018-09-11] MEDS ORDERED: HYDROcodone/APAP 5/325 MG 1 TAB TAB GT PRN (20:05)
[2018-09-11] MEDS ORDERED: CLINDAMYCIN 150 MG CAP PO SCH (21:00)
[2018-09-11] MEDS ORDERED: CEPHALEXIN 250 MG CAP PO SCH (21:00)
[2018-09-11 21:05] VITALS: BP 121/79
[2018-09-11] MEDS ORDERED: CEPHALEXIN 500 MG CAP ONE (21:59)
[2018-09-11] MEDS: MUPIROCIN CA NASAL 2% 1GM TUBE NS SCH (22:30)
[2018-09-11] MEDS: SODIUM CHLORIDE 1 GM TAB PO SCH (22:30)
[2018-09-11] MEDS: NACL 0.9% 1,000 ML IV SCH (23:00)
[2018-09-11] MEDS: levETIRAcetam 100 MG/ML ORASYR GT SCH (23:00)
--- NOTE | 2018-09-11 23:00 | NUR ---
GT FEEDING STARTED ORDERED. HOB ELEVATED. PERICARE DONE, BM NOTED. REPOSITIONED TO LEFT SIDE LYING. DUE MEDS GIVEN. CALL LIGHT WITHIN REACH.
[2018-09-11] MEDS: risperiDONE 1 MG TAB PO SCH (23:01)
[2018-09-11] MEDS: METOCLOPRAMIDE 10 MG/10 ML SYRP UDC GT SCH (23:01)
[2018-09-11] MEDS: methylPREDNISolone SS 40 MG/ML VIAL IVP SCH (23:01)
--- NOTE | 2018-09-11 23:35 | NUR ---
DR. CABALLERO AT BEDSIDE FOR CONSULT.
[2018-09-11] MEDS ORDERED: cefTRIAXone 1,000 MG VIAL ONE (23:55)
[2018-09-12] VITALS (7 sets, daily range): BP systolic 105–133; BP diastolic 56–86
--- NOTE | 2018-09-12 04:00 | NUR ---
REPOSITIONED. VITAL SIGNS STABLE. AFEBRILE. NO COMPLAINS. HOB ELEVATED AT ALL TIME. MINIMAL RESIDUAL NOTED. CALL LIGHT WITHIN REACH.
[2018-09-12] MEDS: LEVOTHYROXINE 0.05 MG TAB GT SCH (05:33)
[2018-09-12] MEDS: NACL 0.9% 1,000 ML IV SCH ×2 (06:04→22:12)
--- NOTE | 2018-09-12 07:30 | NUR ---
ENDORSED CARE AT BEDSIDE WITH JAD RN, PATIENT IN STABLE CONDITION.
--- NOTE | 2018-09-12 07:33 | NUR ---
RECEIVED BEDSIDE REPORT FROM MOBILE DEVELOPER RN FOR CONTINUITY OF CARE. PT IN STABLE CONDITION. APHASIC. FLACC 0. NO S/S DISTRESS. RESPIRATIONS EVEN AND UNLABORED. HEART RHYTHM REGULAR. G-TUBE IN PLACE, RUNNING G-TUBE FEEDINGS PER MD ORDER. DRESSING C/D/I. SKIN OTHERWISE INTACT. PT IS BEDBOUND. ALL EXTREMITIES CONTRACTED. CAST ON LEFT ARM FOR OLD FX. ACTIVE BS IN ALL QUADRANTS. ABDOMEN SOFT AND NON-DISTENDED. IV SITE PATENT AND ASYMPTOMATIC, INFUSING IVF PER MD ORDERS. ALL SAFETY PRECAUTIONS IN PLACE, WILL CONTINUE TO MONITOR.
--- NOTE | 2018-09-12 08:17 | NUR ---
PATIENT HAS BEEN SCREENED AND CATEGORIZED HIGH NUTRITION RISK. PATIENT WILL BE SEEN WITHIN 1-2 DAYS OF ADMISSION. 09/12/18-09/13/[address]
--- NOTE | 2018-09-12 08:31 | NUR ---
PER PHARMACY, NO ALBUTEROL TAB AVAILABLE. WILL INSOLE RASPER TO NOTIFY.
[2018-09-12] MEDS ORDERED: ALBUTEROL 4 MG TAB GT SCH (09:00)
[2018-09-12] MEDS: FLUTICASONE NASAL 50 MCG/ACTUATION 16 GM BTL NS SCH ×2 (09:00→10:39)
[2018-09-12] MEDS ORDERED: OSELTAMIVIR PHOSPHATE 75 MG CAP PO SCH (09:00)
[2018-09-12] MEDS ORDERED: CARBAMAZEPINE 300 MG PO SCH (09:00)
[2018-09-12] MEDS ORDERED: NON-FORMULARY ITEM (Lactobacillus Rhamnosus GG (Culturelle) 10 Billion) PO SCH (09:00)
[2018-09-12] MEDS ORDERED: NON-FORMULARY ITEM (Potassium Chloride 20 MEQ) PO SCH (09:00)
[2018-09-12] MEDS ORDERED: NON-FORMULARY ITEM (Lactulose 10 GM) PO SCH (09:00)
[2018-09-12] MEDS ORDERED: LORATADINE 10 MG PO SCH (09:00)
--- NOTE | 2018-09-12 10:08 | NUR ---
ASKED BOARD & CARE FACILITY TO BRING ALBUTEROL TABLET. PER [facility], PATIENT IS NO LONGER TAKING MED. THEY WILL CALL PATIENT'S B&C RN TO DOUBLE CHECK AND CALL ME BACK.
[2018-09-12] MEDS: SODIUM CHLORIDE 1 GM TAB PO SCH ×2 (10:12→20:34)
[2018-09-12] MEDS: POLYETHYLENE GLYCOL 17 GM/PKT PO SCH (10:13)
[2018-09-12] MEDS: risperiDONE 1 MG TAB PO SCH ×2 (10:13→20:33)
[2018-09-12] MEDS: POTASSIUM CHLORIDE 20% 40 MEQ/15 ML UDC GT SCH (10:14)
[2018-09-12] MEDS: METOCLOPRAMIDE 10 MG/10 ML SYRP UDC GT SCH ×4 (10:16→20:33)
[2018-09-12] MEDS: CYCLOBENZAPRINE 10 MG TAB GT SCH ×3 (10:16→18:09)
[2018-09-12] MEDS: MONTELUKAST SODIUM 10 MG TAB GT SCH (10:17)
[2018-09-12] MEDS: LORATADINE 10 MG TAB PO SCH (10:17)
[2018-09-12] MEDS: hydrOXYzine HCL 10 MG TAB GT SCH ×3 (10:17→18:08)
[2018-09-12] MEDS: MULTIVITAMIN/MINERALS 1 TAB PO SCH (10:17)
[2018-09-12] MEDS: LACTULOSE 20 GM/30 ML UDC GT SCH (10:18)
[2018-09-12] MEDS: methylPREDNISolone SS 40 MG/ML VIAL IVP SCH ×2 (10:23→20:33)
[2018-09-12] MEDS: LACTOBACILLUS RHAMNOSUS GG 1 EACH CAP GT SCH (10:38)
[2018-09-12] MEDS: levETIRAcetam 100 MG/ML ORASYR GT SCH ×2 (10:38→20:33)
--- NOTE | 2018-09-12 10:53 | NUR ---
OBTAINED ALBUTEROL TABLET FROM PATIENT'S [facility] RN. PLASTICS FABRICATOR AND ASSEMBLER TO TAKE IT BACK TO PHARMACY.
[2018-09-12] MEDS ORDERED: NYSTATIN CRE 100 MU/GM 15 GM TUBE TP PRN (11:03)
--- NOTE | 2018-09-12 11:03 | NUR ---
PER [facility] MEDICATION RECORD, NYSTATIN IS APPLIED TO DANIEL GTUBE SITE. NOTIFIED PHARMACIST.
[2018-09-12 11:21] LABS: BASOPHILS % (AUTO) 0.2 % (0.0-2.0); EOSINOPHILS % (AUTO) 0.2 % (0.0-4.0); HEMATOCRIT 33.1 % (36-52); HEMOGLOBIN 11.3 g/dL (12.0-18.0); LYMPHOCYTES % (AUTO) 12.1 % (20.5-51.1); MEAN CORPUSCULAR HEMOGLOBIN 28 pg (27-31); MEAN CORPUSCULAR HGB CONC 34 g/dL (33-37); MEAN CORPUSCULAR VOLUME 83.1 fL (80-94); MONOCYTES # (AUTO) 0.7 K/uL (0.8-1.0); MONOCYTES % (AUTO) 8.8 % (1.7-9.3); NEUTROPHILS # (AUTO) 6.3 K/uL (1.8-7.7); NEUTROPHILS % (AUTO) 78.7 % (42.2-75.2); PLATELET COUNT (AUTO) 222 K/uL (140-450); RED BLOOD CELL COUNT(AUTO) 3.98 MIL/uL (4.20-6.10); RED CELL DISTRIBUTION WIDTH 13.1 % (11.6-13.7)
[2018-09-12 11:41] LABS: ANION GAP 11.6 (8-16); CARBON DIOXIDE 27.5 mmol/L (21-32); CREATININE 0.5 mg/dL (0.7-1.3); POTASSIUM 4.1 mmol/L (3.5-5.1)
--- NOTE | 2018-09-12 12:22 | NUR ---
NS RATE CHANGED TO 50ML/HR PER DR. DENYS BERMUDEZ. Addendum: 09/12/18 at 1502 by Clementine Murry Meng, RN PATIENT HAS BEEN PLACED ON WOUND CARE MATTRESS. Addendum: 09/12/18 at 1503 by Clementine Murry Meng, RN WOUND BED
--- NOTE | 2018-09-12 13:46 | NUR ---
09/12/18 RD INITIAL ASSESSMENT COMPLETED PLEASE REFER TO NUTRITION ASSESSMENT UNDER CARE ACTIVITY FOR ESTIMATED NUTRITIONAL NEEDS. 1. CONTINUE GLUCERNA 1.2 @ 50 ML/HR X 24 HRS - THIS WILL PROVIDE 1440 KCALS AND 72 G PROTEIN. THIS IS MEETING 93% OF ENERGY NEEDS AND 116% OF PROTEIN NEEDS 2. RECOMMEND FLUSH [address] TO FOLLOW-UP 2-3 DAYS, HIGH RISK JUAN CARLOS SOTO RD
--- NOTE | 2018-09-12 13:52 | NUR ---
PLACED CONDOM CATH ON PATIENT.
[2018-09-12] MEDS: ALBUTEROL 4 MG GT SCH ×2 (14:19→18:09)
--- NOTE | 2018-09-12 14:35 | NUR ---
I called and spoke with Mara Chávez, the unix systems administrator of [facility] . She stated family is not involved with the care of the pt. Pt is overseen by gearcase assembler Karly Spencer from [facility] . The pt has a wheelchair at [facility]. The PCP is Dr. Reno and the [facility] staff brings the pt to his office or Dr. Reno follows up with the pt at [facility]. Pt is not able to return to [facility] if he needs IV abx. Plumbing Inspector or Registration Clerk will follow up as needed.
--- NOTE | 2018-09-12 15:02 | NUR ---
LEFT MESSAGE FOR [employer]EN[employer] TO BRING WOUND BED MATTRESS PUMP.
--- NOTE | 2018-09-12 15:40 | NUR ---
PT SLEEPING IN BED WITH LIGHT SNORING. NO S/S DISTRESS. BP 105/66, HR 82, TEMP 98.3 F. FLUIDS HAD BEEN DECREASED FROM 100CC/HR TO 50CC/HR AT 1222 TODAY. EXTREMITIES WARM AND DRY. CAP REFILL <3 SEC. WILL CONTINUE TO MONITOR BP FOR CHANGES.
--- NOTE | 2018-09-12 17:23 | NUR ---
PUMP CONNECTED TO WOUND CARE BED.
--- NOTE | 2018-09-12 19:28 | NUR ---
ENDORSED POC TO MARKETING ANALYTICS ANALYST RN. PT IN STABLE CONDITION.
--- NOTE | 2018-09-12 19:30 | NUR ---
RECEIVED REPORT FROM DAYSHIFT NURSE AT BEDSIDE FOR CONTINUITY OF CARE. PT AAOX4. PT IV NOTED R HAND 24G NS 50ML/HR. NO SOB NO S/S OF DISTRESS ON RA. RAILS PADED CALL LIGHT WITHIN REACH WILL CONTINUE TO MONITOR.
[2018-09-12] MEDS: MUPIROCIN CA NASAL 2% 1GM TUBE NS SCH (20:00)
[2018-09-13 04:00] VITALS: BP 13/95
[2018-09-13] MEDS: LEVOTHYROXINE 0.05 MG TAB GT SCH (05:43)
[2018-09-13] MEDS: ALBUTEROL 4 MG GT SCH ×3 (06:18→18:49)
[2018-09-13 07:22] LABS: BASOPHILS % (AUTO) 0.2 % (0.0-2.0); EOSINOPHILS % (AUTO) 0.3 % (0.0-4.0); HEMOGLOBIN 10.9 g/dL (12.0-18.0); LYMPHOCYTES # (AUTO) 1.1 K/uL (2.0-11.5); LYMPHOCYTES % (AUTO) 17.1 % (20.5-51.1); MEAN CORPUSCULAR HEMOGLOBIN 28 pg (27-31); MEAN CORPUSCULAR HGB CONC 33 g/dL (33-37); MEAN CORPUSCULAR VOLUME 84.9 fL (80-94); MONOCYTES # (AUTO) 0.5 K/uL (0.8-1.0); MONOCYTES % (AUTO) 8.2 % (1.7-9.3); NEUTROPHILS # (AUTO) 4.9 K/uL (1.8-7.7); NEUTROPHILS % (AUTO) 74.2 % (42.2-75.2); PLATELET COUNT (AUTO) 252 K/uL (140-450); RED BLOOD CELL COUNT(AUTO) 3.89 MIL/uL (4.20-6.10); RED CELL DISTRIBUTION WIDTH 13.3 % (11.6-13.7); WHITE BLOOD COUNT (AUTO) 6.6 K/uL (4.8-10.8)
--- NOTE | 2018-09-13 07:27 | NUR ---
ENDORSED REPORT TO DAYSHIFT NURSE AT BEDSIDE FOR CONTINUITY OF CARE.
--- NOTE | 2018-09-13 07:28 | NUR ---
RECEIVED REPORT FROM MANGLE ROLLER NURSE FOR CONTINUITY OF CARE. PT IN STABLE CONDITION. RESPIRATIONS EVEN AND UNLABORED. IV INTACT AND PATENT. G-TUBE PATENT AND INTACT. SAFETY MEASURES IN PLACE. BED IN LOW POSITION. BED ALARM ON. CALL LIGHT AT BEDSIDE. WILL CONTINUE TO MONITOR.
[2018-09-13 07:39] LABS: ANION GAP 11.5 (8-16); CARBON DIOXIDE 31.1 mmol/L (21-32); CREATININE 0.6 mg/dL (0.7-1.3); POTASSIUM 3.6 mmol/L (3.5-5.1)
[2018-09-13 07:43] LABS: MAGNESIUM 1.6 mg/dL (1.8-2.4); PHOSPHORUS 3.6 mg/dL (2.5-4.9)
[2018-09-13 08:00] VITALS: BP 129/93
--- NOTE | 2018-09-13 09:15 | NUR ---
0930 GAVE ORDERED MEDICATION AT THIS TIME. PT TOLERATED WELL. G-TUBE RESIDUAL 25ML. BED IN LOW POSITION, CALL LIGHT AT BEDSIDE, BED ALARM ON. WILL CONTINUE TO MONITOR.
[2018-09-13] MEDS ORDERED: SODIUM CHLORIDE 1 GM TAB PO SCH (09:30)
[2018-09-13] MEDS ORDERED: MAG SULF 2000 MG/WATER PREMIX 50 ML IV ONE (09:30)
[2018-09-13] MEDS ORDERED: POTASSIUM CHLORIDE 10 MEQ TABER PO SCH (10:00)
[2018-09-13] MEDS ORDERED: MAG SULF 2000 MG/WATER PREMIX 50 ML IV SCH (10:00)
[2018-09-13] MEDS: METOCLOPRAMIDE 10 MG/10 ML SYRP UDC GT SCH ×4 (10:22→20:59)
[2018-09-13] MEDS: ALBUTEROL 0.083% 2.5 MG/3 ML NEBU INH SCH (10:22)
[2018-09-13] MEDS: POTASSIUM CHLORIDE 20% 40 MEQ/15 ML UDC GT SCH (10:22)
[2018-09-13] MEDS: levETIRAcetam 100 MG/ML ORASYR GT SCH ×2 (10:23→20:59)
[2018-09-13] MEDS: LACTULOSE 20 GM/30 ML UDC GT SCH (10:23)
[2018-09-13] MEDS: FLUTICASONE NASAL 50 MCG/ACTUATION 16 GM BTL NS SCH (10:23)
[2018-09-13] MEDS: POLYETHYLENE GLYCOL 17 GM/PKT PO SCH (10:23)
[2018-09-13] MEDS: LORATADINE 10 MG TAB PO SCH (10:24)
[2018-09-13] MEDS: LACTOBACILLUS RHAMNOSUS GG 1 EACH CAP GT SCH (10:24)
[2018-09-13] MEDS: hydrOXYzine HCL 10 MG TAB GT SCH ×3 (10:24→16:50)
[2018-09-13] MEDS: MONTELUKAST SODIUM 10 MG TAB GT SCH (10:26)
[2018-09-13] MEDS: MULTIVITAMIN/MINERALS 1 TAB PO SCH (10:27)
[2018-09-13] MEDS: SODIUM CHLORIDE 1 GM TAB PO SCH ×2 (10:28→21:00)
[2018-09-13] MEDS: CYCLOBENZAPRINE 10 MG TAB GT SCH ×3 (10:28→16:50)
[2018-09-13] MEDS: risperiDONE 1 MG TAB PO SCH ×2 (10:28→20:59)
[2018-09-13] MEDS: methylPREDNISolone SS 40 MG/ML VIAL IVP SCH ×2 (10:31→20:53)
--- NOTE | 2018-09-13 10:31 | NUR ---
RECEIVED PATIENT ON ROOM AIR, PULSE OX SAT 96%. SCHEDULED BREATHING TREATMENT ADMINISTERED. TOLERATED TX WELL. NO ADVERSE SIDE EFFECTS. NO RESPIRATORY DISTRESS NOTED AT THIS TIME. WILL CONTINUE TO MONITOR.
--- NOTE | 2018-09-13 11:45 | NUR ---
REPOSITIONED, PT IN STABLE CONDITION. BED IN LOW POSITION, BED ALARM ON, CALL LIGHT AT BEDSIDE. WILL CONTINUE TO MONITOR.
[2018-09-13 12:00] VITALS: BP 129/93
--- NOTE | 2018-09-13 13:24 | NUR ---
PT IN STABLE CONDITION, RESPIRATIONS EVEN AND UNLABORED. BED IN LOW POSITION, BED ALARM ON, CALL LIGHT AT BEDSIDE. WILL CONTINUE TO MONITOR.
--- NOTE | 2018-09-13 15:20 | NUR ---
GAVE MEDICATION FOR AGITATION. PT TOLERATED WELL. WILL CONTINUE TO MONITOR.
[2018-09-13] MEDS: LORazepam 2 MG/ML VIAL IVP PRN ×2 (15:25→20:56)
[2018-09-13] MEDS: NACL 0.9% 1,000 ML IV SCH (15:30)
[2018-09-13 16:00] VITALS: BP 91/65
--- NOTE | 2018-09-13 17:07 | NUR ---
KHUSHI FROM [facility] CALLED TO CHECK WHEN PT WAS TO BE DISCHARGED. INFORMED KHUSHI THAT NO DISCHARGE ORDER WAS PLACED AT THIS TIME.
--- NOTE | 2018-09-13 17:51 | NUR ---
TORD DR. CABALLERO, FELICITAS Morales MD, DC ROCEPHIN, START MEROPENEM 1GM IVPB Q8. DR CABALLERO IS AWARE OF PENICILLIN ALLERGY.
--- NOTE | 2018-09-13 19:25 | NUR ---
INFORMED DIESEL ROLLER OPERATOR NURSE MEROPENEM 1GM IV Q8 WAS ORDERED. PT ALLERGY TO PENICILLIN. NURSE NEEDS TO MONITOR PT FOR REACTION ON 1ST AND 2ND DOSE. FELICITAS GAN IS AWARE OF THE ALLERGY.
--- NOTE | 2018-09-13 19:26 | NUR ---
GAVE REPORT TO PRIVATE TUTORS AND TEACHERS NURSE FOR CONTINUITY OF CARE. PT IN STABLE CONDITION.
--- NOTE | 2018-09-13 19:27 | NUR ---
RECEIVED BEDSIDE REPORT FROM BRIAN CORMIER. PT IS AAOX0. MENTALLY DELAYED. PT IS ON ROOM AIR. NO S/S OF DISTRESS. PT HAS IV ON R HAND 24G INFUSING IVF PER ORDERS. PT WITH G TUBE FEEDINGS:GLUCERNA AT 50ML/HR WATER FLUSH 160ML/6H. PTS SKIN IS INTACT. HAS A SOCK ON R HAND PER NURSE PT STICKS FINGER IN HIS MOUTH AND VOMITS. CAST ON LEFT HAND L HUMERUS FX. CAP REFILL <2SECONDS SKIN WARM AND DRY ON LEFT HAND. FLACC 0. HAS CONDOM CATH DRAINING CLEAR YELLOW URINE. PT DX UTI AND HYPONATREMIA NA 129. PT WILL START 1ST BAG OF MERREM TONIGHT. IS ON CONTACT ISOLATION + MRSA OF NARES. WILL RECEIVE 1ST DOSE OF BACTROBAN TONIGHT. ON FALL,ASPIRATION, AND SZ PRECAUTION. WILL CONTINUE TO MONITOR.
[2018-09-13 20:16] VITALS: BP 117/68
[2018-09-13] MEDS ORDERED: MEROPENEM 500 MG VIAL IV ONE (20:47)
[2018-09-13] MEDS: MEROPENEM 1,000 MG in NACL 0.9% 100 ML IV SCH (20:49)
[2018-09-13] MEDS: MUPIROCIN CA NASAL 2% 1GM TUBE NS SCH (20:49)
--- NOTE | 2018-09-13 20:49 | NUR ---
VITAL SIGNS ARE WITHIN NORMAL LIMITS:B/P 117./68 HR 105 96% ON RA. DUE MEDICATIONS GIVEN. PTS 1ST DOSE OF MERREM INFUSING PER ORDERS WILL MONITOR CLOSELY FOR REACTION. HAS ALLERGY FOR PCN DR RUSH TO GIVE. RESIDUAL <10CC. SAFETY MEASURES ARE IN PLACE.
--- NOTE | 2018-09-13 22:30 | NUR ---
NEW BAG OF GLUCERNA STARTED: 50CC/HR WATER FLUSH 160CC/6H. RESIDUAL <10CC. MERREM COMPLETE NO S/S OF REACTION OR DISTRESS. PT IS SLEEPING COMFORTABLY IN BED. ALL SAFETY MEASURES ARE IN PLACE. WILL CONTINUE TO MONITOR.
--- NOTE | 2018-09-14 | NUR ---
VITAL SIGNS ARE WITHIN NORMAL LIMITS. WILL CONTINUE TO MONITOR.
[2018-09-14 00:01] VITALS: BP 137/51
--- NOTE | 2018-09-14 04:00 | NUR ---
VITAL SIGNS ARE WITHIN NORMAL LIMITS. SAFETY MEASURES ARE IN PLACE. WILL CONTINUE TO MONITOR.
[2018-09-14 04:04] VITALS: BP 145/88
[2018-09-14] MEDS: MEROPENEM 1,000 MG in NACL 0.9% 100 ML IV SCH ×3 (04:27→21:29)
[2018-09-14] MEDS: LEVOTHYROXINE 0.05 MG TAB GT SCH (06:05)
[2018-09-14] MEDS: ALBUTEROL 4 MG GT SCH ×3 (06:05→18:08)
--- NOTE | 2018-09-14 06:05 | NUR ---
CHECKED RESIDUAL OF 20CC. DUE MEDICATIONS GIVEN. PT TOLERATED WELL.
[2018-09-14 06:27] LABS: BASOPHILS % (AUTO) 0.3 % (0.0-2.0); EOSINOPHILS % (AUTO) 0.4 % (0.0-4.0); HEMATOCRIT 34.5 % (36-52); HEMOGLOBIN 11.3 g/dL (12.0-18.0); LYMPHOCYTES % (AUTO) 18.8 % (20.5-51.1); MEAN CORPUSCULAR HEMOGLOBIN 28 pg (27-31); MEAN CORPUSCULAR HGB CONC 33 g/dL (33-37); MEAN CORPUSCULAR VOLUME 85.1 fL (80-94); MONOCYTES # (AUTO) 0.4 K/uL (0.8-1.0); MONOCYTES % (AUTO) 8.3 % (1.7-9.3); NEUTROPHILS # (AUTO) 3.9 K/uL (1.8-7.7); NEUTROPHILS % (AUTO) 72.2 % (42.2-75.2); PLATELET COUNT (AUTO) 295 K/uL (140-450); RED BLOOD CELL COUNT(AUTO) 4.05 MIL/uL (4.20-6.10); RED CELL DISTRIBUTION WIDTH 13.2 % (11.6-13.7); WHITE BLOOD COUNT (AUTO) 5.3 K/uL (4.8-10.8)
[2018-09-14 06:34] LABS: ALBUMIN 3.1 g/dL (3.4-5.0); ANION GAP 11.6 (8-16); CARBON DIOXIDE 30.4 mmol/L (21-32); CREATININE 0.6 mg/dL (0.7-1.3); MAGNESIUM 1.7 mg/dL (1.8-2.4); PHOSPHORUS 4.1 mg/dL (2.5-4.9); TOTAL BILIRUBIN 0.2 mg/dL (0.0-1.0)
--- NOTE | 2018-09-14 07:20 | NUR ---
GAVE BEDSIDE REPORT TO JUAN OCRMIER. PT ENDORSED IN STABLE CONDITION.
--- NOTE | 2018-09-14 07:23 | NUR ---
RECEIVED BEDSIDE REPORT FROM RESIDENTIAL DRIVER RN. PT IS AAOX0. MENTALLY DELAYED. PT IS ON ROOM AIR. NO S/S OF DISTRESS. PT HAS IV ON R HAND 24G INFUSING IVF PER ORDERS. PT WITH G TUBE FEEDINGS:GLUCERNA AT 50ML/HR WATER FLUSH [id number]. PTS SKIN IS INTACT. HAS A SOCK ON R HAND PER NURSE PT STICKS FINGER IN HIS MOUTH AND VOMITS. CAST ON LEFT HAND L HUMERUS FX. CAP REFILL <2SECONDS SKIN WARM AND DRY ON LEFT HAND. FLACC 0. PT DX UTI AND HYPONATREMIA NA 133. PT IS ON CONTACT ISOLATION + MRSA OF NARES. ON FALL,ASPIRATION, AND SEIZURE PRECAUTIONS. WILL CONTINUE TO MONITOR CLOSELY.
[2018-09-14 08:00] VITALS: BP 134/86
[2018-09-14] MEDS: ALBUTEROL 0.083% 2.5 MG/3 ML NEBU INH SCH (08:55)
[2018-09-14] MEDS: FLUTICASONE NASAL 50 MCG/ACTUATION 16 GM BTL NS SCH (10:27)
[2018-09-14] MEDS: risperiDONE 1 MG TAB PO SCH ×2 (10:28→21:29)
[2018-09-14] MEDS: MULTIVITAMIN/MINERALS 1 TAB PO SCH (10:29)
[2018-09-14] MEDS: hydrOXYzine HCL 10 MG TAB GT SCH ×3 (10:29→18:07)
[2018-09-14] MEDS: LACTOBACILLUS RHAMNOSUS GG 1 EACH CAP GT SCH (10:29)
[2018-09-14] MEDS: LORATADINE 10 MG TAB PO SCH (10:29)
[2018-09-14] MEDS: MONTELUKAST SODIUM 10 MG TAB GT SCH (10:30)
[2018-09-14] MEDS: SODIUM CHLORIDE 1 GM TAB PO SCH ×2 (10:30→21:29)
[2018-09-14] MEDS: LACTULOSE 20 GM/30 ML UDC GT SCH (10:31)
[2018-09-14] MEDS: METOCLOPRAMIDE 10 MG/10 ML SYRP UDC GT SCH ×4 (10:32→21:29)
[2018-09-14] MEDS: POLYETHYLENE GLYCOL 17 GM/PKT PO SCH (10:32)
[2018-09-14] MEDS: levETIRAcetam 100 MG/ML ORASYR GT SCH ×2 (10:33→21:29)
[2018-09-14] MEDS: POTASSIUM CHLORIDE 20% 40 MEQ/15 ML UDC GT SCH (10:35)
[2018-09-14] MEDS: CYCLOBENZAPRINE 10 MG TAB GT SCH ×3 (10:36→18:07)
[2018-09-14 12:00] VITALS: BP 126/84
[2018-09-14] MEDS: NACL 0.9% 1,000 ML IV SCH (12:55)
--- NOTE | 2018-09-14 14:41 | NUR ---
CM NOTE RECEIVED ORDER FOR SNF FOR IV ANTIBIOTIC. PER TAYLER OF [facility] AND [facility], THEY CANNOT TAKE THE PATIENT BECAUSE [facility] ONLY DOES NOT PAY FOR SKILLED NEED IN THE SNF LIKE IV ANTIBIOTIC. PER PUSHPA V[facility], THEY CANNOT TAKE THE PATIENT BECAUSE [facility] ONLY DOES NOT PAY FOR IV ANTIBIOTIC IN THE SNF. PER ANGELIQUE OF [facility], THEY CANNOT TAKE THE PATIENT BECAUSE [facility] ONLY DOES NOT COVER IV ANTIBIOTIC IN THE SNF. PER PEDRO OF [facility], NO BED AVAILABLE. PER DAVID [facility], NO BED AVAILABLE. PER DEAN OF [facility], NO BED AVAILABLE. PER KATIE OF [facility], NO BED AVAILABLE. PER SABINA [facility], NO MALE BED AVAILABLE. PER ZENY LOG[facility], NO ISOLATION BED AVAILABLE. PER REID OF [facility] [address], NO ISOLATION BED AVAILABLE.
[2018-09-14] MEDS: LORazepam 2 MG/ML VIAL IVP PRN (15:06)
[2018-09-14 16:00] VITALS: BP 132/82
--- NOTE | 2018-09-14 19:43 | NUR ---
ENDORSED PT TO PSYCHIATRY ADULT PHYSICIAN FOR CONTINUITY OF CARE. PT IN STABLE CONDITION AT THIS TIME.
--- NOTE | 2018-09-14 19:43 | NUR ---
RECEIVED BEDSIDE REPORT FROM GENIA MARTINEZ, PATIENT IN BED, ON RA, ON CONTACT FOR HX MRSA OR NARES. IN IN LEFT HAND 24 G INFUSING NS AT 50, GTUBE IN PLACE INFUSING GLUCERNIA 1.2 AT 50, GARCIA IN PLACE. PATIENT APHASIC, FALL PRECAUTIONS IN PLACE. WILL CONTINUE TO MONITOR. Addendum: 09/15/18 at 0007 by Armida Gutiérrez RN NO GARCIA IN PLACE
--- NOTE | 2018-09-14 21:29 | NUR ---
DUE MEDICATIONS GIVEN, RESIDUES AT 0, CHANGED IV TUBING, INFUSING GLUCERNIA 1.2 AT 50 ML/HR. WILL CONTINUE TO MONITOR.
[2018-09-15] VITALS: BP 135/77
--- NOTE | 2018-09-15 00:09 | NUR ---
V/S TAKEN, FLACC-0, WILL CONTINUE TO MONITOR.
--- NOTE | 2018-09-15 02:59 | NUR ---
PATIENT ASLEEP IN BED, NO SIGNS OF DISTRESS, BED ALARM ON.
[2018-09-15] MEDS: MEROPENEM 1,000 MG in NACL 0.9% 100 ML IV SCH ×3 (05:52→21:29)
[2018-09-15] MEDS: LEVOTHYROXINE 0.05 MG TAB GT SCH (05:52)
[2018-09-15] MEDS: ALBUTEROL 4 MG GT SCH ×3 (06:44→21:27)
--- NOTE | 2018-09-15 06:45 | NUR ---
DUE MEDICATIONS GIVEN PATIENT TOLERATED WELL
--- NOTE | 2018-09-15 07:38 | NUR ---
ENDORSED PATIENT TO DAY SHIFT NURSE PATIENT STABLE.
[2018-09-15 07:53] LABS: BASOPHILS % (AUTO) 0.4 % (0.0-2.0); EOSINOPHILS # (AUTO) 0.2 K/uL (0-0.4); EOSINOPHILS % (AUTO) 2.7 % (0.0-4.0); HEMATOCRIT 33.7 % (36-52); HEMOGLOBIN 11.2 g/dL (12.0-18.0); LYMPHOCYTES # (AUTO) 1.1 K/uL (2.0-11.5); MEAN CORPUSCULAR HEMOGLOBIN 28 pg (27-31); MEAN CORPUSCULAR HGB CONC 33 g/dL (33-37); MEAN CORPUSCULAR VOLUME 85.1 fL (80-94); MONOCYTES # (AUTO) 0.6 K/uL (0.8-1.0); MONOCYTES % (AUTO) 8.5 % (1.7-9.3); NEUTROPHILS # (AUTO) 5.4 K/uL (1.8-7.7); NEUTROPHILS % (AUTO) 73.4 % (42.2-75.2); PLATELET COUNT (AUTO) 359 K/uL (140-450); RED BLOOD CELL COUNT(AUTO) 3.96 MIL/uL (4.20-6.10); RED CELL DISTRIBUTION WIDTH 13.3 % (11.6-13.7); WHITE BLOOD COUNT (AUTO) 7.3 K/uL (4.8-10.8)
--- NOTE | 2018-09-15 07:58 | NUR ---
RECEIVED BEDSIDE REPORT FROM ASSISTANT INVENTORY MANAGER NURSE. PT IS APHASIC. ON RA. RESPIRATION EVEN AND UNLABORED. NO SIGNS OF DISTRESS NOTED. FLACC 0. IV ON R 24G, CLEAN AND INTACT, INFUSING PER MD ORDER. G-TUBE IS INFUSING 50CC/HR, TOLERATED WELL. SKIN INTACT, CLEAN AND DRY. CONTACT PRECAUTION IN PLACE. SAFETY MEASURES IN PLACE. CALL LIGHT WITHIN REACH.
[2018-09-15 08:00] VITALS: BP 156/91
[2018-09-15 08:00] LABS: ANION GAP 9.8 (8-16); CARBON DIOXIDE 32.3 mmol/L (21-32); CREATININE 0.6 mg/dL (0.7-1.3); POTASSIUM 4.1 mmol/L (3.5-5.1)
[2018-09-15] MEDS: ALBUTEROL 0.083% 2.5 MG/3 ML NEBU INH SCH (09:37)
[2018-09-15] MEDS: NACL 0.9% 1,000 ML IV SCH (10:39)
[2018-09-15] MEDS: METOCLOPRAMIDE 10 MG/10 ML SYRP UDC GT SCH ×4 (10:39→21:36)
[2018-09-15] MEDS: LACTULOSE 20 GM/30 ML UDC GT SCH (10:40)
[2018-09-15] MEDS: levETIRAcetam 100 MG/ML ORASYR GT SCH ×2 (10:41→21:30)
[2018-09-15] MEDS: LACTOBACILLUS RHAMNOSUS GG 1 EACH CAP GT SCH (10:41)
[2018-09-15] MEDS: CYCLOBENZAPRINE 10 MG TAB GT SCH ×3 (10:42→17:39)
[2018-09-15] MEDS: hydrOXYzine HCL 10 MG TAB GT SCH ×3 (10:42→17:39)
[2018-09-15] MEDS: risperiDONE 1 MG TAB PO SCH ×2 (10:42→21:29)
[2018-09-15] MEDS: MONTELUKAST SODIUM 10 MG TAB GT SCH (10:42)
[2018-09-15] MEDS: POLYETHYLENE GLYCOL 17 GM/PKT PO SCH (10:43)
[2018-09-15] MEDS: MULTIVITAMIN/MINERALS 1 TAB PO SCH (10:43)
[2018-09-15] MEDS: LORATADINE 10 MG TAB PO SCH (10:43)
[2018-09-15] MEDS: POTASSIUM CHLORIDE 20% 40 MEQ/15 ML UDC GT SCH (10:44)
--- NOTE | 2018-09-15 10:49 | NUR ---
CHECKED G TUBE PLACEMENT BY AUSCULTATE EPIGASTRIUM WHILE INJECTION 10ML OF AIR. CHECKED RESIDUAL <10 ML. ADMINISTERED MEDS PER MD ORDER VIA G TUBE. FLUSHED WITH 30ML OF WATER BEFORE AND AFTER ADMINISTER MEDS. PT TOLERATED WELL. NO SIGNS OF DISTRESS NOTED. SAFETY MEASURES IN PLACE.
[2018-09-15] MEDS: FLUTICASONE NASAL 50 MCG/ACTUATION 16 GM BTL NS SCH (11:15)
[2018-09-15] MEDS: SODIUM CHLORIDE 1 GM TAB PO SCH ×2 (11:19→21:28)
--- NOTE | 2018-09-15 12:24 | NUR ---
ASSISTED THE TOBACCO DIPPER TO PROVIDE TOTAL CARE FOR PT. PT TOLERATED WELL. NO SIGN OF DISTRESS NOTED.
--- NOTE | 2018-09-15 13:11 | NUR ---
ADMINISTERED MEDS PER MD ORDER VIA G TUBE, FLUSH WITH 30ML OF WATER BEFORE AND AFTER MEDICATION ADMINISTRATION. PT TOLERATED WELL. NO SIGNS OF DISTRESS NOTED. SAFETY MEASURES IN PLACE.
--- NOTE | 2018-09-15 15:09 | NUR ---
09/15/18 RD FOLLOW UP COMPLETED PLEASE REFER TO NUTRITION PROGRESS NOTE UNDER CARE ACTIVITY FOR ESTIMATED NUTRITION NEEDS. RD RECOMMENDATIONS: 1. CONTINUE GLUCERNA 1.2 @ 50 ML/HR X 24 HRS - THIS WILL PROVIDE 1440 KCALS AND 72 G PROTEIN. THIS IS MEETING 93% OF ENERGY NEEDS AND 116% OF PROTEIN NEEDS 2. CONTINUE WATER FLUSH [address] TO FOLLOW-UP 2-3 DAYS, HIGH RISK ADILIA WILSON, RD
[2018-09-15 16:00] VITALS: BP 123/78
--- NOTE | 2018-09-15 18:30 | NUR ---
HUNG A NEW BOTTLE OF GLUCERNA 1.2 AND CHANGED TO NEW TUBINGS. NO SIGNS OF DISTRESS NOTED.
--- NOTE | 2018-09-15 18:45 | NUR ---
PT HAD A BM. ASSISTED GRISTMILLER TO CHANGE PT'S GOWN AND LINENS.
--- NOTE | 2018-09-15 19:20 | NUR ---
GAVE BEDSIDE REPORT TO BOTTOM FINISHER NURSE FOR CONTINUITY OF CARE. PT IS IN STABLE CONDITION.
--- NOTE | 2018-09-15 19:21 | NUR ---
RECD. RESTING IN BED, AWAKE, APHASIC, NOTED BLIND IN THE LEFT EYE. RESPIRATION EVEN AND UNLABORED. IV OF NS AT 50ML/HR INFUSING, RIGHT HAND G24. GT FEEDING OF GLUCERNA 1.2 AT 50 ML/HR INFUSING, RESIDUAL 2 ML, TOLERATING FEEDING. LEFT ARM WITH CAST, HANDS WITH EDEMA, PINK COLOR, GOOD CAPILLARY REFILL LESS 3 SECONDS. ON WOUND CARE BED, BILATERAL SEQUENTIALS ON. PLAN OF CARE FOR THE SHIFT DISCUSSED. UNABLE TO COMPREHEND. NO APPEARANCE OF PAIN NOTED, FLACC -0.
--- NOTE | 2018-09-15 21:30 | NUR ---
DUE GT MEDICATIONS GIVEN VIA GT. RESIDUAL 5 ML, TOLERATING FEEDING WELL.
--- NOTE | 2018-09-15 22:00 | NUR ---
CARE PLAN REVIEWED WITH FORD WIGGINS AND WILL CONTINUE WITH PLAN OF CARE.
[2018-09-16] VITALS: BP 131/89
--- NOTE | 2018-09-16 | NUR ---
SLEEPING COMFORTABLY IN BED.
[2018-09-16] MEDS: NACL 0.9% 1,000 ML IV SCH (03:47)
--- NOTE | 2018-09-16 04:30 | NUR ---
IV INFILTRATED, NEW IV LINE INSERTED BY CHARGE NURSE FLORENCE AT THE RIGHT WRIST G22.
[2018-09-16] MEDS: MEROPENEM 1,000 MG in NACL 0.9% 100 ML IV SCH ×3 (05:03→21:09)
[2018-09-16] MEDS: LEVOTHYROXINE 0.05 MG TAB GT SCH (05:51)
--- NOTE | 2018-09-16 06:00 | NUR ---
RESIDUAL CHECKED - 3ML. DUE PO MEDICATIONS GIVEN BY GT.
[2018-09-16] MEDS: ALBUTEROL 4 MG GT SCH ×3 (06:05→19:53)
--- NOTE | 2018-09-16 07:20 | NUR ---
ENDORSED TO AM SHIFT NURSE FOR CONTINUITY OF CARE.
--- NOTE | 2018-09-16 07:21 | NUR ---
RECEIVED REPORT FROM STEREOPLOTTER OPERATOR NURSE. PT IN STABLE CONDITION. RESPIRATIONS EVEN AND UNLABORED. IV INTACT AND PATENT. FEEDING TUBE PATENT AND INTACT. CALL LIGHT AT BEDSIDE. BED IN LOW POSITION. WILL CONTINUE TO MONITOR.
[2018-09-16 07:43] LABS: BASOPHILS % (AUTO) 0.5 % (0.0-2.0); EOSINOPHILS # (AUTO) 0.2 K/uL (0-0.4); EOSINOPHILS % (AUTO) 2.5 % (0.0-4.0); HEMATOCRIT 33.9 % (36-52); HEMOGLOBIN 11.2 g/dL (12.0-18.0); LYMPHOCYTES # (AUTO) 1.1 K/uL (2.0-11.5); LYMPHOCYTES % (AUTO) 15.9 % (20.5-51.1); MEAN CORPUSCULAR HEMOGLOBIN 28 pg (27-31); MEAN CORPUSCULAR HGB CONC 33 g/dL (33-37); MONOCYTES # (AUTO) 0.6 K/uL (0.8-1.0); MONOCYTES % (AUTO) 8.5 % (1.7-9.3); NEUTROPHILS # (AUTO) 4.9 K/uL (1.8-7.7); NEUTROPHILS % (AUTO) 72.6 % (42.2-75.2); PLATELET COUNT (AUTO) 415 K/uL (140-450); RED BLOOD CELL COUNT(AUTO) 4.04 MIL/uL (4.20-6.10); RED CELL DISTRIBUTION WIDTH 13.5 % (11.6-13.7); WHITE BLOOD COUNT (AUTO) 6.8 K/uL (4.8-10.8)
[2018-09-16 07:52] LABS: ANION GAP 6.2 (8-16); CARBON DIOXIDE 33.7 mmol/L (21-32); CREATININE 0.6 mg/dL (0.7-1.3); POTASSIUM 3.9 mmol/L (3.5-5.1)
[2018-09-16 08:00] VITALS: BP 169/79
[2018-09-16] MEDS: ALBUTEROL 0.083% 2.5 MG/3 ML NEBU INH SCH (08:11)
--- NOTE | 2018-09-16 09:34 | NUR ---
GAVE ORDERED DUE MEDICATIONS AT THIS TIME. PT TOLERATED WELL. WILL CONTINUE TO MONITOR.
[2018-09-16] MEDS: POTASSIUM CHLORIDE 20% 40 MEQ/15 ML UDC GT SCH (10:07)
[2018-09-16] MEDS: levETIRAcetam 100 MG/ML ORASYR GT SCH ×2 (10:08→21:09)
[2018-09-16] MEDS: LACTULOSE 20 GM/30 ML UDC GT SCH (10:08)
[2018-09-16] MEDS: POLYETHYLENE GLYCOL 17 GM/PKT PO SCH (10:08)
[2018-09-16] MEDS: hydrOXYzine HCL 10 MG TAB GT SCH ×3 (10:08→17:57)
[2018-09-16] MEDS: risperiDONE 1 MG TAB PO SCH ×2 (10:09→21:10)
[2018-09-16] MEDS: MULTIVITAMIN/MINERALS 1 TAB PO SCH (10:09)
[2018-09-16] MEDS: LORATADINE 10 MG TAB PO SCH (10:09)
[2018-09-16] MEDS: MONTELUKAST SODIUM 10 MG TAB GT SCH (10:09)
[2018-09-16] MEDS: LACTOBACILLUS RHAMNOSUS GG 1 EACH CAP GT SCH (10:09)
[2018-09-16] MEDS: CYCLOBENZAPRINE 10 MG TAB GT SCH ×3 (10:10→17:58)
[2018-09-16] MEDS: FLUTICASONE NASAL 50 MCG/ACTUATION 16 GM BTL NS SCH (10:10)
--- NOTE | 2018-09-16 12:14 | NUR ---
REPOSITIONED AT THIS TIME. PT IN STABLE CONDITION. WILL CONTINUE TO MONITOR.
--- NOTE | 2018-09-16 14:02 | NUR ---
REPOSITIONED PT AT THIS TIME. BRUSHED PT TEETH AT THIS THIS TIME. PT TOLERATED WELL. WILL CONTINUE TO MONITOR.
[2018-09-16] MEDS: METOCLOPRAMIDE 10 MG/10 ML SYRP UDC GT SCH ×4 (14:13→21:09)
[2018-09-16] MEDS: SODIUM CHLORIDE 1 GM TAB PO SCH ×2 (14:14→21:11)
[2018-09-16 16:00] VITALS: BP 128/74
--- NOTE | 2018-09-16 16:23 | NUR ---
REPOSITIONED AND PUT LIP MOISTURIZER ON. PT TOLERATED WELL. WILL CONTINUE TO MONITOR.
--- NOTE | 2018-09-16 19:25 | NUR ---
GAVE REPORT TO PROOF PLATE MAKER NURSE FOR CONTINUITY OF CARE. PT IN STABLE CONDITION.
--- NOTE | 2018-09-16 19:30 | NUR ---
RECEIVED ENDORSEMENT FROM AM SHIFT RN. PATIENT A/Ox1, UNABLE TO VERBALIZE NEEDS. NO SOB OR DISTRESS NOTED. IV SITE ON RIGHT HAND, 24 GAUGE, INTACT AND PATENT. G-TUBE PATENT AND INTACT. BED IN THE LOWEST POSITION, CALL LIGHT WITHIN REACH. WILL CONTINUE TO MONITOR.
--- NOTE | 2018-09-16 21:15 | NUR ---
FREQUENT CHECKS MADE. PATIENT ASLEEP, VISIBLE CHEST RISE AND FALL NOTED.
--- NOTE | 2018-09-16 23:45 | NUR ---
VITALS TAKEN, NO SOB OR DISTRESS NOTED.
[2018-09-17] VITALS: BP 102/66
[2018-09-17] MEDS: LORazepam 2 MG/ML VIAL IVP PRN (03:21)
--- NOTE | 2018-09-17 03:21 | NUR ---
PATIENT WAS AGITATED; ADMINISTERED PRN ATIVAN. BP 147/99. WILL CONTINUE TO MONITOR.
[2018-09-17] MEDS: LEVOTHYROXINE 0.05 MG TAB GT SCH (05:35)
[2018-09-17] MEDS: MEROPENEM 1,000 MG in NACL 0.9% 100 ML IV SCH ×3 (05:35→21:45)
[2018-09-17] MEDS: ALBUTEROL 4 MG GT SCH ×3 (06:13→19:00)
[2018-09-17 07:11] LABS: BASOPHILS % (AUTO) 0.6 % (0.0-2.0); EOSINOPHILS # (AUTO) 0.1 K/uL (0-0.4); EOSINOPHILS % (AUTO) 2.5 % (0.0-4.0); HEMATOCRIT 35.4 % (36-52); HEMOGLOBIN 11.7 g/dL (12.0-18.0); LYMPHOCYTES # (AUTO) 1.2 K/uL (2.0-11.5); LYMPHOCYTES % (AUTO) 19.6 % (20.5-51.1); MEAN CORPUSCULAR HEMOGLOBIN 28 pg (27-31); MEAN CORPUSCULAR HGB CONC 33 g/dL (33-37); MEAN CORPUSCULAR VOLUME 85.3 fL (80-94); MONOCYTES # (AUTO) 0.5 K/uL (0.8-1.0); NEUTROPHILS % (AUTO) 68.3 % (42.2-75.2); PLATELET COUNT (AUTO) 442 K/uL (140-450); RED BLOOD CELL COUNT(AUTO) 4.15 MIL/uL (4.20-6.10); RED CELL DISTRIBUTION WIDTH 13.6 % (11.6-13.7); WHITE BLOOD COUNT (AUTO) 5.9 K/uL (4.8-10.8)
--- NOTE | 2018-09-17 07:15 | NUR ---
ENDORSED PATIENT TO AM SHIFT RN. PATIENT IN STABLE CONDITION.
--- NOTE | 2018-09-17 07:20 | NUR ---
RECEIVED PT FROM CPC NURSE, PT IS AWAKE AND LYING ON THE BED WITH SIDE RAILS UP AND CALL LIGHT WITHIN REACH, FALL AND SAFETY PRECAUTION INITIATED. PT HAS AN IV LINE ON THE RT HAND G. 24 WITH NS ON TKO INFUSING. PT HAS A G-TUBE IN PLACE ON THE LEFT ABDOMINAL SIDE AND PT IS ON CONTINUOUS FEEDING OF GLUCERNA 1.2 AT 50ML/HR WITH WATER FLUSH OF 160Q6H. NO SIGN OF DISTRESS NOTED AND WILL MONITOR PT.
[2018-09-17 07:31] LABS: ALBUMIN 3.3 g/dL (3.4-5.0); ANION GAP 7.4 (8-16); CARBON DIOXIDE 32.5 mmol/L (21-32); CREATININE 0.7 mg/dL (0.7-1.3); POTASSIUM 3.9 mmol/L (3.5-5.1); TOTAL BILIRUBIN 0.3 mg/dL (0.0-1.0)
[2018-09-17 08:00] VITALS: BP 143/84
--- NOTE | 2018-09-17 08:20 | NUR ---
PT IS AWAKE NA VITAL SIGNS TAKEN AND IS WITHIN NORMAL LIMIT. NO SIGN OF DISTRESS NOTED AND WILL CONTINUE TO MONITOR PT.
[2018-09-17] MEDS: FLUTICASONE NASAL 50 MCG/ACTUATION 16 GM BTL NS SCH (09:00)
--- NOTE | 2018-09-17 09:34 | NUR ---
SPOKE TO MERY BUITRAGO, TRAFFIC ROUTING ENGINEER FROM [facility] AND INFORMED HER THAT PT' NEEDS TO HAVE A CONSENT FOR THE PICC LINE INSERTION BUT MERY SAID THAT CONSENT FOR INVASIVE PROCEDURES SHOULD BE OBTAINED FROM [facility]'S ICF SEMICONDUCTOR EQUIPMENT TECHNICIAN.
[2018-09-17] MEDS: levETIRAcetam 100 MG/ML ORASYR GT SCH ×2 (10:08→21:41)
[2018-09-17] MEDS: hydrOXYzine HCL 10 MG TAB GT SCH ×3 (10:09→17:24)
[2018-09-17] MEDS: MONTELUKAST SODIUM 10 MG TAB GT SCH (10:09)
[2018-09-17] MEDS: POLYETHYLENE GLYCOL 17 GM/PKT PO SCH (10:09)
[2018-09-17] MEDS: LORATADINE 10 MG TAB PO SCH (10:10)
[2018-09-17] MEDS: risperiDONE 1 MG TAB PO SCH ×2 (10:10→21:44)
[2018-09-17] MEDS: CYCLOBENZAPRINE 10 MG TAB GT SCH ×3 (10:11→17:23)
[2018-09-17] MEDS: MULTIVITAMIN/MINERALS 1 TAB PO SCH (10:11)
[2018-09-17] MEDS: POTASSIUM CHLORIDE 20% 40 MEQ/15 ML UDC GT SCH (10:13)
[2018-09-17] MEDS: SODIUM CHLORIDE 1 GM TAB PO SCH ×2 (10:14→21:44)
[2018-09-17] MEDS: LACTOBACILLUS RHAMNOSUS GG 1 EACH CAP GT SCH (10:14)
[2018-09-17] MEDS: ALBUTEROL 0.083% 2.5 MG/3 ML NEBU INH SCH (10:15)
[2018-09-17] MEDS: LACTULOSE 20 GM/30 ML UDC GT SCH (10:15)
--- NOTE | 2018-09-17 10:15 | NUR ---
PT WAS CLEANED AND WAS REPOSITIONED AND MADE COMFORTABLE TO THE BED, MEDICATIONS WERE GIVEN VIA G-TUBE AND PT TOLERATED IT, NO RESIDUAL AND NO SIGN OF DISTRESS NOTED AND WILL CONTINUE TO MONITOR PT.
[2018-09-17] MEDS: METOCLOPRAMIDE 10 MG/10 ML SYRP UDC GT SCH ×4 (10:16→21:41)
--- NOTE | 2018-09-17 11:06 | NUR ---
CALLED [facility] AND LEFT A MESSAGE TO THE [facility] COVERED BUCKLE ASSEMBLER REGARDING OBTAINING A CONSENT FOR THE PT, FOR INSERTION OF PICC LINE. AWAITING RESPONSE.
--- NOTE | 2018-09-17 11:10 | NUR ---
INFORMED CHARGE NURSE, THAT CONSENT FOR THE PICC LINE INSERTION NEEDS TO BE OBTAINED TO THE [facility] [employer] [facility] AND INFORMED AMRITA, THAT MESSAGE WAS LEFT AND AWAITING CALL BACK.
--- NOTE | 2018-09-17 11:46 | NUR ---
CM NOTE I SPOKE WITH KIRK HERNANDEZ , BUDGET COUNSELOR OF [facility]# [phone], WHO STATED THAT THEY ARE UNABLE TO TAKE PATIENT BACK ON IV ANTIBIOTIC BECAUSE THEY DON'T DO IV ANTIBIOTIC IN THEIR FACILITY. CHARGE NURSE YOAN VELASCO. PER ZENY LOG[facility], NO ISOLATION BED AVAILABLE PER SABINA [facility], NO BED AVAILABLE PER LUIS CARLOS [facility], NO BED AVAILABLE PER [facility], NO ISOLATION BED AVAILABLE PER LAUREN [facility], NO ISOLATION BED AVAILABLE PER REID [facility], NO ISOLATION BED AVAILABLE PER KATIE [facility], NO BED AVAILABLE
--- NOTE | 2018-09-17 12:10 | NUR ---
PICC LINE INSERTION WILL NOT BE PUSHED THROUGH ACCORDING TO CHARGE NURSEYOAN BECAUSE NO PLACE WAS STILL FOUND BY CM FOR THE PT AND CHARGE NURSEYOAN SAID THAT DR. CRAWLEY WAS INFORMED.
--- NOTE | 2018-09-17 13:10 | NUR ---
PT IS AWAKE AND WAS REPOSITIONED, MEDICATIONS WERE GIVEN VIA G-TUBE, PT TOLERATED IT, NO RESIDUAL NOTED. IV MERREM WAS GIVEN VIA IVPB. NO SIGN OF DISTRESS NOTED AND WILL CONTINUE TO MONITOR PT.
[2018-09-17 16:00] VITALS: BP 122/80
--- NOTE | 2018-09-17 17:25 | NUR ---
PT WAS CLEANED AND REPOSITIONED, VITAL SIGNS TAKEN AND IS WITHIN NORMAL LIMITS, MEDICATIONS WERE GIVEN VIA G- TUBE AND PT TOLERATED IT, NO RESIDUAL NOTED, NO SIGN OF DISTRESS NOTED AND WILL MONITOR PT.
--- NOTE | 2018-09-17 18:40 | NUR ---
KRYSTINA FROM THE [facility] AND [facility]ARE CAME AND BROUGHT THE PT'S ALBUTEROL TABLETS, PT'S MEDICATION WAS HANDED TO PHARMACIST DEZ. DEZ SAID THAT THEY WILL STILL VERIFY MEDICATION AND WILL SENT TO UNIT ONCE VALIDATED.
--- NOTE | 2018-09-17 19:00 | NUR ---
I GOT A CALL FROM DR ROD'S OFFICE THAT PATIENT HAS KAYLEY WITH DR ROD FOR HIS LEFT ELBOW FRACTURE AND CAST CHANGE SINCE PATIENT IS HERE I NOTIFIED DR CRAWLEY FOR CONSULTATION AND HE WILL CONSULT DR ROD. I CALLED AND LEFT A MESSAGE FOR DR ROD . WILL FOLLOW UP TOMORROW.
--- NOTE | 2018-09-17 19:25 | NUR ---
ENDORSED PT TO AUDIO VISUAL COORDINATOR NURSE FOR CONTINUITY OF CARE. PT IS STABLE AT THIS TIME, LYING ON THE BED.
--- NOTE | 2018-09-17 19:27 | NUR ---
RECEIVED ENDORSEMENT FROM AM SHIFT RN. PATIENT A/Ox1, UNABLE TO VERBALIZE NEEDS. NO SOB OR DISTRESS NOTED. IV SITE ON RIGHT HAND, 24 GAUGE, INTACT AND PATENT. G-TUBE PATENT AND INTACT, NO RESIDUAL NOTED UPON ASPIRATION. BED IN THE LOWEST POSITION, CALL LIGHT WITHIN REACH. INITIAL ASSESSMENT DONE. WILL CONTINUE TO MONITOR.
--- NOTE | 2018-09-17 23:55 | NUR ---
FREQUENT CHECKS MADE, VITALS TAKEN. NO DISTRESS NOTED.
[2018-09-18] VITALS: BP 106/67
--- NOTE | 2018-09-18 01:58 | NUR ---
ROUNDS DONE. NO DISTRESS NOTED.
--- NOTE | 2018-09-18 04:50 | NUR ---
PATIENT CLEANED, LINENS CHANGED, REPOSITIONED. TOLERATED WELL.
[2018-09-18] MEDS: MEROPENEM 1,000 MG in NACL 0.9% 100 ML IV SCH ×3 (05:10→21:28)
[2018-09-18] MEDS: LEVOTHYROXINE 0.05 MG TAB GT SCH (06:47)
[2018-09-18] MEDS: ALBUTEROL 4 MG GT SCH ×3 (06:48→18:59)
[2018-09-18] MEDS: ALBUTEROL 0.083% 2.5 MG/3 ML NEBU INH SCH (07:19)
--- NOTE | 2018-09-18 07:20 | NUR ---
ENDORSED PATIENT TO AM SHIFT RN. PATIENT STABLE.
[2018-09-18 08:00] VITALS: BP 145/92
[2018-09-18 08:15] LABS: BASOPHILS % (AUTO) 0.4 % (0.0-2.0); EOSINOPHILS # (AUTO) 0.2 K/uL (0-0.4); EOSINOPHILS % (AUTO) 2.8 % (0.0-4.0); HEMATOCRIT 38.4 % (36-52); HEMOGLOBIN 12.5 g/dL (12.0-18.0); LYMPHOCYTES # (AUTO) 1.4 K/uL (2.0-11.5); MEAN CORPUSCULAR HEMOGLOBIN 28 pg (27-31); MEAN CORPUSCULAR HGB CONC 33 g/dL (33-37); MEAN CORPUSCULAR VOLUME 85.8 fL (80-94); MONOCYTES # (AUTO) 0.7 K/uL (0.8-1.0); NEUTROPHILS # (AUTO) 4.4 K/uL (1.8-7.7); NEUTROPHILS % (AUTO) 65.8 % (42.2-75.2); PLATELET COUNT (AUTO) 480 K/uL (140-450); RED BLOOD CELL COUNT(AUTO) 4.47 MIL/uL (4.20-6.10); RED CELL DISTRIBUTION WIDTH 13.7 % (11.6-13.7); WHITE BLOOD COUNT (AUTO) 6.8 K/uL (4.8-10.8)
[2018-09-18] MEDS: LACTULOSE 20 GM/30 ML UDC GT SCH (09:00)
[2018-09-18] MEDS: LACTOBACILLUS RHAMNOSUS GG 1 EACH CAP GT SCH (09:00)
[2018-09-18] MEDS ORDERED: CLINICAL MONITORING MC SCH (09:00)
[2018-09-18] MEDS: POLYETHYLENE GLYCOL 17 GM/PKT PO SCH (09:00)
[2018-09-18 09:01] LABS: ANION GAP 11.8 (8-16); CARBON DIOXIDE 33.6 mmol/L (21-32); CREATININE 0.7 mg/dL (0.7-1.3); POTASSIUM 4.4 mmol/L (3.5-5.1)
[2018-09-18] MEDS: POTASSIUM CHLORIDE 20% 40 MEQ/15 ML UDC GT SCH (10:05)
[2018-09-18] MEDS: levETIRAcetam 100 MG/ML ORASYR GT SCH ×2 (10:05→21:27)
[2018-09-18] MEDS: METOCLOPRAMIDE 10 MG/10 ML SYRP UDC GT SCH ×4 (10:06→21:26)
[2018-09-18] MEDS: CYCLOBENZAPRINE 10 MG TAB GT SCH ×3 (10:07→16:27)
[2018-09-18] MEDS: risperiDONE 1 MG TAB PO SCH ×2 (10:07→21:27)
[2018-09-18] MEDS: MULTIVITAMIN/MINERALS 1 TAB PO SCH (10:07)
[2018-09-18] MEDS: hydrOXYzine HCL 10 MG TAB GT SCH ×3 (10:08→16:27)
[2018-09-18] MEDS: MONTELUKAST SODIUM 10 MG TAB GT SCH (10:08)
[2018-09-18] MEDS: LORATADINE 10 MG TAB PO SCH (10:09)
[2018-09-18] MEDS: FLUTICASONE NASAL 50 MCG/ACTUATION 16 GM BTL NS SCH (10:09)
[2018-09-18] MEDS: SODIUM CHLORIDE 1 GM TAB PO SCH (10:15)
--- NOTE | 2018-09-18 10:37 | NUR ---
ADMINISTERED MEDS TO PT ORDERED. TOLERATED WELL. PT HAS G-TUBE. IS PATENT. PT LYING COMFORTABLY IN HIS BED. HAS SEIZURE PRECAUTION AND IS ON FALL RISK. ALL SAFETY MEASURE IN PLACE. NO SIGN OF DISTRESS NOTED. WILL CONTINUE TO MONITOR PT.
--- NOTE | 2018-09-18 14:17 | NUR ---
ADMINISTERED MEDS TO PT ORDERED. TOLERATED WELL. GT RESIDUAL 3 ML. PT LYING COMFORTABLY IN BHIS BED. NO SIGN OF DISTRESS NEEDED. ALL SAFETY MEASURE EIN PLACE. WILL CONTINUE TO MONITOR PT.
[2018-09-18 16:00] VITALS: BP 125/85
--- NOTE | 2018-09-18 16:52 | NUR ---
09/18/18 RD RECOMMENDATIONS: 1. CONTINUE GLUCERNA 1.2 @ 50 ML/HR VIA G TUBE X 24 HRS. - THIS WILL PROVIDE 1440 KCALS AND 72 G PROTEIN. THIS IS MEETING 93% OF ENERGY NEEDS AND 116% OF PROTEIN NEEDS 2. CONTINUE WATER FLUSH [address] TO FOLLOW-UP 2-3 DAYS, HIGH RISK JUAN CARLOS SOTO, CARLOS
--- NOTE | 2018-09-18 19:10 | NUR ---
ENDORSED PT TO PM NURSE AT BEDSIDE. PT IN STABLE CONDITION.
--- NOTE | 2018-09-18 19:11 | NUR ---
RECEIVED ENDORSEMENT FROM AM SHIFT RN. PATIENT A/Ox1, UNABLE TO VERBALIZE NEEDS. NO SOB OR DISTRESS NOTED. IV SITE ON RIGHT HAND, 24 GAUGE, INTACT AND PATENT. G-TUBE PATENT AND INTACT, 5mL RESIDUAL NOTED UPON ASPIRATION. BED IN THE LOWEST POSITION, CALL LIGHT WITHIN REACH. INITIAL ASSESSMENT DONE. WILL CONTINUE TO MONITOR.
--- NOTE | 2018-09-18 21:05 | NUR ---
MEDICATED ORDERED. G-TUBE RESIDUAL 5mL. TOLERATED WELL. NO DISTRESS NOTED.
[2018-09-19] VITALS: BP 101/65
--- NOTE | 2018-09-19 00:05 | NUR ---
ROUNDS DONE. PATIENT ASLEEP, VISIBLE CHEST RISE AND FALL NOTED. Addendum: 09/19/18 at 0241 by Mirza Arias RN REPOSITIONED, TOLERATED WELL.
--- NOTE | 2018-09-19 02:33 | NUR ---
ROUNDS DONE, PATIENT AGITATED; MOANING AND KICKING. ADMINISTERED PRN ATIVAN FOR AGITATION ORDERED. BP 120/76. WILL CONTINUE TO MONITOR.
[2018-09-19] MEDS: LORazepam 2 MG/ML VIAL IVP PRN (02:56)
[2018-09-19] MEDS: MEROPENEM 1,000 MG in NACL 0.9% 100 ML IV SCH ×3 (04:05→21:23)
--- NOTE | 2018-09-19 04:45 | NUR ---
PATIENT ASLEEP, VISIBLE CHEST RISE AND FALL NOTED.
[2018-09-19] MEDS: LEVOTHYROXINE 0.05 MG TAB GT SCH (06:02)
[2018-09-19] MEDS: ALBUTEROL 4 MG GT SCH ×3 (06:03→18:55)
--- NOTE | 2018-09-19 06:15 | NUR ---
DUE MEDS GIVEN. DID NOT ADMINISTER ALBUTEROL 4MG. TABLET; MED NOT AVAILABLE.
[2018-09-19 06:32] LABS: BASOPHILS % (AUTO) 0.5 % (0.0-2.0); EOSINOPHILS # (AUTO) 0.2 K/uL (0-0.4); EOSINOPHILS % (AUTO) 2.8 % (0.0-4.0); HEMATOCRIT 37.4 % (36-52); HEMOGLOBIN 12.3 g/dL (12.0-18.0); LYMPHOCYTES # (AUTO) 1.3 K/uL (2.0-11.5); LYMPHOCYTES % (AUTO) 24.7 % (20.5-51.1); MEAN CORPUSCULAR HEMOGLOBIN 28 pg (27-31); MEAN CORPUSCULAR HGB CONC 33 g/dL (33-37); MEAN CORPUSCULAR VOLUME 85.1 fL (80-94); MONOCYTES # (AUTO) 0.7 K/uL (0.8-1.0); MONOCYTES % (AUTO) 12.2 % (1.7-9.3); NEUTROPHILS # (AUTO) 3.2 K/uL (1.8-7.7); NEUTROPHILS % (AUTO) 59.8 % (42.2-75.2); PLATELET COUNT (AUTO) 423 K/uL (140-450); RED BLOOD CELL COUNT(AUTO) 4.39 MIL/uL (4.20-6.10); RED CELL DISTRIBUTION WIDTH 13.8 % (11.6-13.7); WHITE BLOOD COUNT (AUTO) 5.3 K/uL (4.8-10.8)
[2018-09-19 07:06] LABS: CARBON DIOXIDE 32.3 mmol/L (21-32); CREATININE 0.7 mg/dL (0.7-1.3); POTASSIUM 4.3 mmol/L (3.5-5.1)
--- NOTE | 2018-09-19 07:17 | NUR ---
ENDORSED PATIENT TO AM SHIFT RN. PATIENT IN STABLE CONDITION.
--- NOTE | 2018-09-19 07:18 | NUR ---
RECEIVED REPORT FROM HARP MAKER NURSE. PATIENT LYING DOWN IN BED, NO DISTRESS NOTED. FLACC 0. APHASIC, SKIN COLOR APPROPRIATE TO ETHNICITY, WARM TO TOUCH. SKIN IS INTACT. RESPIRATIONS EVEN, UNLABORED, ON ROOM AIR. GTUBE IN PLACE, RUNNING GTUBE FEEDING PER MD ORDERS. IV SITE INTACT, PATENT, AND ON SALINE LOCK. ABDOMEN SOFT, NON-DISTENDED. CONTRACTURES NOTED ON BUE AND BLE. REVIEWED PLAN OF CARE WITH PATIENT. UNABLE TO COMPREHEND. SAFETY MEASURES IN PLACE, CALL LIGHT WITHIN REACH. WILL CONTINUE TO MONITOR.
[2018-09-19] MEDS: ALBUTEROL 0.083% 2.5 MG/3 ML NEBU INH SCH (07:51)
[2018-09-19 08:00] VITALS: BP 123/90
[2018-09-19] MEDS: POLYETHYLENE GLYCOL 17 GM/PKT PO SCH (09:50)
[2018-09-19] MEDS: LACTULOSE 20 GM/30 ML UDC GT SCH (09:50)
[2018-09-19] MEDS: METOCLOPRAMIDE 10 MG/10 ML SYRP UDC GT SCH ×4 (09:50→21:23)
[2018-09-19] MEDS: POTASSIUM CHLORIDE 20% 40 MEQ/15 ML UDC GT SCH (09:51)
[2018-09-19] MEDS: levETIRAcetam 100 MG/ML ORASYR GT SCH ×2 (09:52→21:23)
[2018-09-19] MEDS: MONTELUKAST SODIUM 10 MG TAB GT SCH (09:53)
[2018-09-19] MEDS: hydrOXYzine HCL 10 MG TAB GT SCH ×3 (09:53→16:49)
[2018-09-19] MEDS: LACTOBACILLUS RHAMNOSUS GG 1 EACH CAP GT SCH (09:53)
[2018-09-19] MEDS: risperiDONE 1 MG TAB PO SCH ×2 (09:53→21:24)
[2018-09-19] MEDS: CYCLOBENZAPRINE 10 MG TAB GT SCH ×3 (09:53→16:49)
[2018-09-19] MEDS: LORATADINE 10 MG TAB PO SCH (09:54)
[2018-09-19] MEDS: MULTIVITAMIN/MINERALS 1 TAB PO SCH (09:54)
[2018-09-19] MEDS: FLUTICASONE NASAL 50 MCG/ACTUATION 16 GM BTL NS SCH (09:54)
--- NOTE | 2018-09-19 10:14 | NUR ---
PATIENT LYING DOWN IN BED. ASSISTED MACHINE MOVER IN CLEANING AND REPOSITIONING PATIENT. SCHEDULED MEDICATIONS DUE GIVEN. RESIDUAL CHECKED AT 0 ML. WILL CONTINUE TO MONITOR.
--- NOTE | 2018-09-19 13:22 | NUR ---
PATIENT LYING DOWN IN BED SLEEPING, AROUSABLE BY VOICE. NO DISTRESS NOTED. FLACC 0. SCHEDULED MEDICATIONS DUE GIVEN. WILL CONTINUE TO MONITOR.
[2018-09-19 16:00] VITALS: BP 106/71
--- NOTE | 2018-09-19 16:56 | NUR ---
PATIENT LYING DOWN IN BED SLEEPING, AROUSABLE BY VOICE. NO DISTRESS NOTED. FLACC 0. CONDITION UNCHANGED. WILL CONTINUE TO MONITOR.
--- NOTE | 2018-09-19 19:25 | NUR ---
GAVE REPORT TO HOUSEHOLD APPLIANCE MECHANIC NURSE FOR CONTINUITY OF CARE. PATIENT IN STABLE CONDITION.
--- NOTE | 2018-09-19 19:26 | NUR ---
RECEIVED REPORT FROM DAYSHIFT NURSE AT BEDSIDE FOR CONTINUITY OF CARE. PT AAOX0. NO SOB NO S/S OF DISTRESS ON RA. BED LOWERED CALL LIGHT WITHIN REACH WILL CONTINUE TO MONITOR.
[2018-09-20] VITALS: BP 105/67
[2018-09-20] MEDS: MEROPENEM 1,000 MG in NACL 0.9% 100 ML IV SCH ×3 (05:30→21:28)
[2018-09-20] MEDS: LEVOTHYROXINE 0.05 MG TAB GT SCH (05:31)
[2018-09-20 06:21] LABS: EOSINOPHILS # (AUTO) 0.2 K/uL (0-0.4); HEMOGLOBIN 13.3 g/dL (12.0-18.0); WHITE BLOOD COUNT (AUTO) 7.4 K/uL (4.8-10.8)
[2018-09-20 06:23] LABS: BASOPHILS % (AUTO) 0.6 % (0.0-2.0); EOSINOPHILS % (AUTO) 2.8 % (0.0-4.0); HEMATOCRIT 40.6 % (36-52); LYMPHOCYTES # (AUTO) 1.5 K/uL (2.0-11.5); LYMPHOCYTES % (AUTO) 20.6 % (20.5-51.1); MEAN CORPUSCULAR HEMOGLOBIN 28 pg (27-31); MEAN CORPUSCULAR HGB CONC 33 g/dL (33-37); MEAN CORPUSCULAR VOLUME 84.4 fL (80-94); MONOCYTES # (AUTO) 0.7 K/uL (0.8-1.0); MONOCYTES % (AUTO) 9.2 % (1.7-9.3); NEUTROPHILS # (AUTO) 4.9 K/uL (1.8-7.7); NEUTROPHILS % (AUTO) 66.8 % (42.2-75.2); PLATELET COUNT (AUTO) 415 K/uL (140-450); RED BLOOD CELL COUNT(AUTO) 4.81 MIL/uL (4.20-6.10); RED CELL DISTRIBUTION WIDTH 13.7 % (11.6-13.7)
[2018-09-20] MEDS: ALBUTEROL 4 MG GT SCH ×3 (06:39→18:47)
--- NOTE | 2018-09-20 07:30 | NUR ---
ENDORSED REPORT TO DAYSHIFT NURSE AT BEDSIDE FOR CONTINUITY OF CARE.
--- NOTE | 2018-09-20 07:31 | NUR ---
RECEIVED REPORT FROM PRACTICE ARCHITECT NURSE. PATIENT LYING DOWN IN BED, NO DISTRESS NOTED. FLACC 0. APHASIC, SKIN COLOR APPROPRIATE TO ETHNICITY, WARM TO TOUCH. SKIN IS INTACT. RESPIRATIONS EVEN, UNLABORED, ON ROOM AIR. GTUBE IN PLACE, RUNNING GTUBE FEEDING PER MD ORDERS. IV SITE INTACT, PATENT, AND ON SALINE LOCK. ABDOMEN SOFT, NON-DISTENDED. CONTRACTURES NOTED ON BUE AND BLE. REVIEWED PLAN OF CARE WITH PATIENT. UNABLE TO COMPREHEND. SAFETY MEASURES IN PLACE, CALL LIGHT WITHIN REACH. WILL CONTINUE TO MONITOR.
[2018-09-20 08:00] VITALS: BP 118/90
[2018-09-20] MEDS: ALBUTEROL 0.083% 2.5 MG/3 ML NEBU INH SCH (09:08)
[2018-09-20 10:04] LABS: ANION GAP 22.5 (8-16); CARBON DIOXIDE 23.3 mmol/L (21-32); CREATININE 0.7 mg/dL (0.7-1.3); POTASSIUM 4.8 mmol/L (3.5-5.1)
[2018-09-20 10:08] LABS: MAGNESIUM 1.8 mg/dL (1.8-2.4); PHOSPHORUS 4.1 mg/dL (2.5-4.9)
[2018-09-20] MEDS: LACTULOSE 20 GM/30 ML UDC GT SCH (10:23)
[2018-09-20] MEDS: CYCLOBENZAPRINE 10 MG TAB GT SCH ×3 (10:24→16:54)
[2018-09-20] MEDS: METOCLOPRAMIDE 10 MG/10 ML SYRP UDC GT SCH ×4 (10:24→21:27)
[2018-09-20] MEDS: MONTELUKAST SODIUM 10 MG TAB GT SCH (10:25)
[2018-09-20] MEDS: MULTIVITAMIN/MINERALS 1 TAB PO SCH (10:25)
[2018-09-20] MEDS: LACTOBACILLUS RHAMNOSUS GG 1 EACH CAP GT SCH (10:25)
[2018-09-20] MEDS: POLYETHYLENE GLYCOL 17 GM/PKT PO SCH (10:26)
[2018-09-20] MEDS: LORATADINE 10 MG TAB PO SCH (10:26)
[2018-09-20] MEDS: FLUTICASONE NASAL 50 MCG/ACTUATION 16 GM BTL NS SCH (10:26)
[2018-09-20] MEDS: POTASSIUM CHLORIDE 20% 40 MEQ/15 ML UDC GT SCH (10:27)
[2018-09-20] MEDS: levETIRAcetam 100 MG/ML ORASYR GT SCH ×2 (10:27→21:28)
--- NOTE | 2018-09-20 10:39 | NUR ---
ASSISTED FRONT DESK WORKER IN CLEANING AND REPOSITIONING PATIENT. SCHEDULED MEDICATIONS DUE GIVEN. WILL CONTINUE TO MONITOR.
--- NOTE | 2018-09-20 10:40 | NUR ---
CM NOTE PER KIRK HERNANDEZ, SENIOR ACCOUNTING CLERK OF [facility]# [phone], THEY HAVE AN FICTION AND NONFICTION AUTHOR VALVE REPAIRER RECLAMATION FROM 6:00 AM TO 6:00 PM ON WEEKDAYS AND WEEKENDS TO BUSINESS OFFICE REPRESENTATIVE THEIR PATIENT FROM THE HOSPITAL WHEN READY FOR DISCHARGE.
[2018-09-20] MEDS: risperiDONE 1 MG TAB PO SCH ×2 (10:52→21:28)
--- NOTE | 2018-09-20 13:35 | NUR ---
PATIENT LYING DOWN IN BED SLEEPING, AROUSABLE BY VOICE. NO DISTRESS NOTED. FLACC 0. CONDITION UNCHANGED. WILL CONTINUE TO MONITOR.
[2018-09-20 16:00] VITALS: BP 97/61
--- NOTE | 2018-09-20 17:03 | NUR ---
SCHEDULED MEDICATIONS DUE GIVEN. CONDITION UNCHANGED. NO DISTRESS NOTED. FLACC 0. WILL CONTINUE TO MONITOR.
--- NOTE | 2018-09-20 19:24 | NUR ---
GAVE REPORT TO RN CASE MANAGER HOSPICE NURSE FOR CONTINUITY OF CARE. PATIENT IN STABLE CONDITION.
--- NOTE | 2018-09-20 20:15 | NUR ---
RECEIVED REPORT FROM OTHER AUDIOLOGIST NURSE. PT AWAKE. APHASIC. NO S/S OF PAIN OR SOB. ON ROOM AIR. IV TO RIGHT WRIST #22G, PATENT AND INTACT. BUE/BLE CONTRACTED. PT HAS CAST ON LEFT ARM. G-TUBE IN PLACE WITH FEEDING, GLUCERNA 1.2 AT 50 ML/HR. FALL, SEIZURES AND ASPIRATION PRECAUTIONS IN PLACE. CALL LIGHT WITHIN REACH.
--- NOTE | 2018-09-20 21:30 | NUR ---
CHECKED GT RESIDUAL 0 ML. DUE MEDS GIVEN. PT TOLERATED WELL.
[2018-09-21] VITALS: BP 107/57
--- NOTE | 2018-09-21 00:15 | NUR ---
PT SLEEPING BUT WAKES EASILY. RESP EVEN AND UNLABORED. NO S/S OF PAIN OR DISCOMFORT.
--- NOTE | 2018-09-21 02:00 | NUR ---
CHECKED G-TUBE RESIDUAL 5 ML. HUNG A NEW BOTTLE OF GLUCERNA 1.2 AT 50 ML/HR. ASPIRATION PRECAUTION IN PLACE.
[2018-09-21] MEDS: MEROPENEM 1,000 MG in NACL 0.9% 100 ML IV SCH ×3 (04:42→21:24)
--- NOTE | 2018-09-21 04:45 | NUR ---
PT AWAKE. NO S/S OF PAIN OR DISCOMFORT. NO S/S OF RESP DISTRESS. PT TOLERATING FEEDING WELL. HOB ELEVATED.
[2018-09-21] MEDS: LEVOTHYROXINE 0.05 MG TAB GT SCH (06:03)
[2018-09-21] MEDS: ALBUTEROL 4 MG GT SCH ×3 (06:04→18:32)
--- NOTE | 2018-09-21 07:15 | NUR ---
ENDORSED PT TO DAY SHIFT NURSE. PT IN STABLE CONDITION.
--- NOTE | 2018-09-21 07:16 | NUR ---
RECEIVED REPORT FROM ADJUNCT FACULTY INSTRUCTOR NURSE. PATIENT LYING DOWN IN BED, NO DISTRESS NOTED. FLACC 0. APHASIC, SKIN COLOR APPROPRIATE TO ETHNICITY, WARM TO TOUCH. SKIN IS INTACT. RESPIRATIONS EVEN, UNLABORED, ON ROOM AIR. GTUBE IN PLACE, RUNNING GTUBE FEEDING PER MD ORDERS. IV SITE INTACT, PATENT, AND ON SALINE LOCK. ABDOMEN SOFT, NON-DISTENDED. CONTRACTURES NOTED ON BUE AND BLE. REVIEWED PLAN OF CARE WITH PATIENT. UNABLE TO COMPREHEND. SAFETY MEASURES IN PLACE, CALL LIGHT WITHIN REACH. WILL CONTINUE TO MONITOR.
[2018-09-21 07:18] LABS: BASOPHILS % (AUTO) 0.5 % (0.0-2.0); EOSINOPHILS # (AUTO) 0.1 K/uL (0-0.4); HEMATOCRIT 38.7 % (36-52); HEMOGLOBIN 12.7 g/dL (12.0-18.0); LYMPHOCYTES # (AUTO) 1.3 K/uL (2.0-11.5); LYMPHOCYTES % (AUTO) 23.7 % (20.5-51.1); MEAN CORPUSCULAR HEMOGLOBIN 28 pg (27-31); MEAN CORPUSCULAR HGB CONC 33 g/dL (33-37); MEAN CORPUSCULAR VOLUME 84.5 fL (80-94); MONOCYTES # (AUTO) 0.6 K/uL (0.8-1.0); MONOCYTES % (AUTO) 10.3 % (1.7-9.3); NEUTROPHILS # (AUTO) 3.6 K/uL (1.8-7.7); NEUTROPHILS % (AUTO) 63.5 % (42.2-75.2); PLATELET COUNT (AUTO) 407 K/uL (140-450); RED BLOOD CELL COUNT(AUTO) 4.58 MIL/uL (4.20-6.10); RED CELL DISTRIBUTION WIDTH 13.5 % (11.6-13.7); WHITE BLOOD COUNT (AUTO) 5.7 K/uL (4.8-10.8)
[2018-09-21 07:27] LABS: ANION GAP 10.8 (8-16); CARBON DIOXIDE 32.6 mmol/L (21-32); CREATININE 0.7 mg/dL (0.7-1.3); POTASSIUM 4.4 mmol/L (3.5-5.1)
[2018-09-21 08:00] VITALS: BP 108/75
[2018-09-21] MEDS: ALBUTEROL 0.083% 2.5 MG/3 ML NEBU INH SCH (08:04)
[2018-09-21] MEDS: METOCLOPRAMIDE 10 MG/10 ML SYRP UDC GT SCH ×4 (09:41→21:23)
[2018-09-21] MEDS: POTASSIUM CHLORIDE 20% 40 MEQ/15 ML UDC GT SCH (09:41)
[2018-09-21] MEDS: LACTULOSE 20 GM/30 ML UDC GT SCH (09:42)
[2018-09-21] MEDS: levETIRAcetam 100 MG/ML ORASYR GT SCH ×2 (09:42→21:23)
[2018-09-21] MEDS: risperiDONE 1 MG TAB PO SCH ×2 (09:43→21:24)
[2018-09-21] MEDS: LACTOBACILLUS RHAMNOSUS GG 1 EACH CAP GT SCH (09:43)
[2018-09-21] MEDS: MONTELUKAST SODIUM 10 MG TAB GT SCH (09:43)
[2018-09-21] MEDS: LORATADINE 10 MG TAB PO SCH (09:43)
[2018-09-21] MEDS: CYCLOBENZAPRINE 10 MG TAB GT SCH ×3 (09:43→16:50)
[2018-09-21] MEDS: POLYETHYLENE GLYCOL 17 GM/PKT PO SCH (09:44)
[2018-09-21] MEDS: FLUTICASONE NASAL 50 MCG/ACTUATION 16 GM BTL NS SCH (09:44)
[2018-09-21] MEDS: MULTIVITAMIN/MINERALS 1 TAB PO SCH (09:44)
--- NOTE | 2018-09-21 10:09 | NUR ---
PATIENT LYING DOWN IN BED COMFORTABLY. NO DISTRESS NOTED. FLACC 0. SCHEDULED MEDICATIONS DUE GIVEN. WILL CONTINUE TO MONITOR.
--- NOTE | 2018-09-21 14:02 | NUR ---
PATIENT LYING DOWN IN BED SLEEPING, AROUSABLE BY VOICE. NO DISTRESS NOTED. CONDITION UNCHANGED. WILL CONTINUE TO MONITOR.
--- NOTE | 2018-09-21 14:57 | NUR ---
09/21/18 RD FOLLOW UP COMPLETED PLEASE REFER TO NUTRITION PROGRESS NOTE UNDER CARE ACTIVITY FOR ESTIMATED NUTRITIONAL NEEDS. 1. CONTINUE GLUCERNA 1.2 @ 50 ML/HR VIA G TUBE X 24 HRS. - THIS PROVIDES 1440 KCALS AND 72 G PROTEIN, AND IS MEETING 93% OF ENERGY NEEDS AND 116% OF PROTEIN NEEDS 2. CONTINUE WATER FLUSH [address] TO FOLLOW-UP 2-3 DAYS, HIGH RISK KINGS ROBERT RD
[2018-09-21 16:00] VITALS: BP 112/50
--- NOTE | 2018-09-21 16:58 | NUR ---
PATIENT LYING DOWN IN BED SLEEPING, AROUSABLE BY VOICE. NO DISTRESS NOTED. CONDITION UNCHANGED. SCHEDULED MEDICATIONS DUE GIVEN. WILL CONTINUE TO MONITOR.
--- NOTE | 2018-09-21 19:32 | NUR ---
GAVE REPORT TO SHEET METAL FOREMAN NURSE FOR CONTINUITY OF CARE. PATIENT IN STABLE CONDITION.
--- NOTE | 2018-09-21 19:33 | NUR ---
REPORT RECEIVED FROM AM NURSE AT BEDSIDE. PT IN STABLE CONDITION. AAOX1. INTRODUCED SELF TO PT. BOARD UPDATED. FLACC 0. NO SOB. AFEBRILE. IV SITE R WRIST 22G RUNNING NS TKO PATENT AND INTACT. SKIN WARM, DRY, AND INTACT WITH NO OPEN WOUNDS. PT HAS GTUBE PATENT AND INTACT. RUNNING GLUCERNA 1.2@50ML/HR WITH 160ML H2O FLUSH Q6H. RESIDUAL OF 15ML. BED LOCKED IN LOW POSITION. CALL VAUGHN WITHIN REACH. SAFETY PRECAUTIONS IN PLACE. SEIZURE PRECAUTIONS IN PLACE.
--- NOTE | 2018-09-21 21:23 | NUR ---
KEPPRA, LAMICTAL, REGLAN, SODIUM, AND RISPERDAL GIVEN THROUGH GTUBE. MERREM HUNG AND RUNNING. PT TOLERATED WELL.
[2018-09-21] MEDS: SODIUM CHLORIDE 1 GM TAB GT SCH (21:24)
--- NOTE | 2018-09-21 23:30 | NUR ---
PT IN BED SLEEPING BUT AROUSABLE. NO S/S OF DISTRESS NOTED. WILL CONTINUE TO MONITOR.
[2018-09-22] VITALS: BP 105/60
--- NOTE | 2018-09-22 01:30 | NUR ---
PT SLEEPING COMFORTABLY IN BED. NO S/S OF DISTRESS NOTED. BREATHING EVEN, UNLABORED, AND WNL. WILL CONTINUE TO MONITOR.
--- NOTE | 2018-09-22 04:00 | NUR ---
PT SLEEPING COMFORTABLY. NO S/S OF DISTRESS NOTED. BREATHING EVEN, UNLABORED, AND WNL. ALL NEEDS MET AT THIS TIME. WILL CONTINUE TO MONITOR.
[2018-09-22] MEDS: LEVOTHYROXINE 0.05 MG TAB GT SCH (06:00)
[2018-09-22] MEDS: ALBUTEROL 4 MG GT SCH ×3 (06:00→18:29)
[2018-09-22] MEDS: MEROPENEM 1,000 MG in NACL 0.9% 100 ML IV SCH ×3 (06:00→21:25)
--- NOTE | 2018-09-22 06:00 | NUR ---
KASHMIR HUNG AND RUNNING. ALBUTEROL AND SYNTHROID GIVEN THROUGH GTUBE. PT TOLERATED WELL.
--- NOTE | 2018-09-22 07:05 | NUR ---
REPORT GIVEN TO AM NURSE AT BEDSIDE. PT IN STABLE CONDITION.
--- NOTE | 2018-09-22 07:16 | NUR ---
RECEIVED REPORT FROM ARC WELDER APPRENTICE NURSE. PATIENT LYING DOWN IN BED, NO DISTRESS NOTED. FLACC-0. APHASIC, SKIN COLOR APPROPRIATE TO ETHNICITY, WARM TO TOUCH. SKIN IS INTACT. RESPIRATIONS EVEN, UNLABORED, ON ROOM AIR. G-TUBE IN PLACE, RUNNING G-TUBE FEEDING PER MD ORDERS. IV SITE INTACT, PATENT, AND ON SALINE LOCK. ABDOMEN SOFT, NON-DISTENDED. CONTRACTURES NOTED ON BUE/BLE. REVIEWED PLAN OF CARE WITH PATIENT. UNABLE TO COMPREHEND. SAFETY MEASURES IN PLACE, CALL LIGHT WITHIN REACH. WILL CONTINUE TO MONITOR.
[2018-09-22 07:42] LABS: BASOPHILS % (AUTO) 0.5 % (0.0-2.0); EOSINOPHILS # (AUTO) 0.2 K/uL (0-0.4); HEMATOCRIT 36.5 % (36-52); LYMPHOCYTES # (AUTO) 1.3 K/uL (2.0-11.5); MEAN CORPUSCULAR HEMOGLOBIN 28 pg (27-31); MEAN CORPUSCULAR HGB CONC 33 g/dL (33-37); MONOCYTES # (AUTO) 0.5 K/uL (0.8-1.0); MONOCYTES % (AUTO) 9.2 % (1.7-9.3); NEUTROPHILS # (AUTO) 3.5 K/uL (1.8-7.7); NEUTROPHILS % (AUTO) 63.3 % (42.2-75.2); PLATELET COUNT (AUTO) 374 K/uL (140-450); RED CELL DISTRIBUTION WIDTH 13.3 % (11.6-13.7); WHITE BLOOD COUNT (AUTO) 5.5 K/uL (4.8-10.8)
[2018-09-22 08:00] VITALS: BP 128/87
[2018-09-22 08:10] LABS: ANION GAP 10.8 (8-16); CARBON DIOXIDE 34.3 mmol/L (21-32); CREATININE 0.8 mg/dL (0.7-1.3); POTASSIUM 4.1 mmol/L (3.5-5.1)
[2018-09-22 08:21] LABS: MAGNESIUM 1.9 mg/dL (1.8-2.4); PHOSPHORUS 3.5 mg/dL (2.5-4.9)
[2018-09-22] MEDS: ALBUTEROL 0.083% 2.5 MG/3 ML NEBU INH SCH (08:40)
--- NOTE | 2018-09-22 08:50 | NUR ---
RECEIVED PATIENT ON ROOM AIR, PULSE OX SAT 94%. SCHEDULED BREATHING TREATMENT ADMINISTERED. TOLERATED TX WELL, NO ADVERSE SIDE EFFECTS. NO RESPIRATORY DISTRESS NOTED AT THIS TIME. WILL CONTINUE TO MONITOR.
[2018-09-22] MEDS: POLYETHYLENE GLYCOL 17 GM/PKT PO SCH (09:00)
[2018-09-22] MEDS: LACTULOSE 20 GM/30 ML UDC GT SCH (10:25)
[2018-09-22] MEDS: METOCLOPRAMIDE 10 MG/10 ML SYRP UDC GT SCH ×4 (10:26→21:24)
[2018-09-22] MEDS: levETIRAcetam 100 MG/ML ORASYR GT SCH ×2 (10:27→21:24)
[2018-09-22] MEDS: SODIUM CHLORIDE 1 GM TAB GT SCH ×2 (10:27→21:25)
[2018-09-22] MEDS: LORATADINE 10 MG TAB PO SCH (10:29)
[2018-09-22] MEDS: MULTIVITAMIN/MINERALS 1 TAB PO SCH (10:29)
[2018-09-22] MEDS: LACTOBACILLUS RHAMNOSUS GG 1 EACH CAP GT SCH (10:29)
[2018-09-22] MEDS: risperiDONE 1 MG TAB PO SCH ×2 (10:30→21:25)
[2018-09-22] MEDS: CYCLOBENZAPRINE 10 MG TAB GT SCH ×3 (10:30→18:28)
[2018-09-22] MEDS: MONTELUKAST SODIUM 10 MG TAB GT SCH (10:31)
[2018-09-22] MEDS: FLUTICASONE NASAL 50 MCG/ACTUATION 16 GM BTL NS SCH (10:32)
[2018-09-22] MEDS: POTASSIUM CHLORIDE 20% 40 MEQ/15 ML UDC GT SCH (10:32)
--- NOTE | 2018-09-22 10:41 | NUR ---
ADMINISTERED MORNING MEDS TO PT. PT TOLERATED THEM WELL. NO SIGNS OF DISTRESS OF PAIN NOTED. WILL ROUND FREQUENTLY ON PT.
--- NOTE | 2018-09-22 12:41 | NUR ---
PT RESTING IN BED. NO SIGNS OF PAIN OR DISTRESS. WILL ROUND FREQUENTLY ON PT.
--- NOTE | 2018-09-22 14:30 | NUR ---
PT SLEEPING COMFORTABLY IN BED. NO S/S OF DISTRESS NOTED. BREATHING EVEN, UNLABORED, AND WNL. WILL CONTINUE TO MONITOR.
[2018-09-22 16:00] VITALS: BP 113/79
--- NOTE | 2018-09-22 19:44 | NUR ---
ENDORSED PT TO TEMPERING MACHINE OPERATOR FOR CONTINUITY OF CARE. PT IN STABLE CONDITION AT THIS TIME.
--- NOTE | 2018-09-22 19:45 | NUR ---
REPORT RECEIVED FROM AM NURSE AT BEDSIDE. PT IN STABLE CONDITION. AAOX1. INTRODUCED SELF TO PT. BOARD UPDATED. FLACC 0. NO SOB. AFEBRILE. IV SITE R WRIST 22G RUNNING NS@TKO PATENT AND INTACT. SKIN WARM, DRY, AND INTACT WITH NO OPEN WOUNDS. PT HAS GTUBE. GTUBE TENDS TO GET OBSTRUCTED. FLUSHED WITH HOT WATER AND SODA. BED LOCKED IN LOW POSITION. CALL VAUGHN WITHIN REACH. SEIZURE PRECAUTION IN PLACE.
--- NOTE | 2018-09-22 21:24 | NUR ---
KEPPRA, LAMICTAL, REGLAN, SALT, AND RISPERDAL CRUSHED AND GIVEN THROUGH GTUBE. MERREM HUNG AND RUNNING. PT TOLERATED WELL. RESIDUAL OF 15ML. PATENT TOLERATING FEEDING WELL.
--- NOTE | 2018-09-22 23:05 | NUR ---
PT SLEEPING COMFORTABLY BUT AROUSABLE. NO S/S OF DISTRESS NOTED. WILL CONTINUE TO MONITOR.
[2018-09-23] VITALS: BP 108/72
--- NOTE | 2018-09-23 01:00 | NUR ---
GTUBE FLUSHED WITH WARM WATER AND SODA TO ENSURE THAT THERE IS NO OBSTRUCTION.
--- NOTE | 2018-09-23 02:00 | NUR ---
GTUBE FEEDING CHANGED.
--- NOTE | 2018-09-23 03:35 | NUR ---
PT ASLEEP BUT AROUSABLE. NO S/S OF DISTRESS NOTED. WILL CONTINUE TO MONITOR.
[2018-09-23] MEDS: MEROPENEM 1,000 MG in NACL 0.9% 100 ML IV SCH (04:26)
--- NOTE | 2018-09-23 04:26 | NUR ---
KASHMIR HUNG AND RUNNING. PT TOLERATING WELL.
[2018-09-23] MEDS: LEVOTHYROXINE 0.05 MG TAB GT SCH (06:26)
--- NOTE | 2018-09-23 06:26 | NUR ---
SYNTHROID AND ALBUTEROL GIVEN THROUGH GTUBE. PT TOLERATED WELL.
[2018-09-23] MEDS: ALBUTEROL 4 MG GT SCH ×3 (06:27→18:18)
[2018-09-23 06:53] LABS: BASOPHILS % (AUTO) 0.8 % (0.0-2.0); EOSINOPHILS # (AUTO) 0.2 K/uL (0-0.4); EOSINOPHILS % (AUTO) 3.6 % (0.0-4.0); HEMATOCRIT 35.9 % (36-52); HEMOGLOBIN 11.9 g/dL (12.0-18.0); LYMPHOCYTES # (AUTO) 1.2 K/uL (2.0-11.5); LYMPHOCYTES % (AUTO) 22.7 % (20.5-51.1); MEAN CORPUSCULAR HEMOGLOBIN 28 pg (27-31); MEAN CORPUSCULAR HGB CONC 33 g/dL (33-37); MEAN CORPUSCULAR VOLUME 84.1 fL (80-94); MONOCYTES # (AUTO) 0.5 K/uL (0.8-1.0); MONOCYTES % (AUTO) 9.4 % (1.7-9.3); NEUTROPHILS # (AUTO) 3.5 K/uL (1.8-7.7); NEUTROPHILS % (AUTO) 63.5 % (42.2-75.2); PLATELET COUNT (AUTO) 369 K/uL (140-450); RED BLOOD CELL COUNT(AUTO) 4.27 MIL/uL (4.20-6.10); RED CELL DISTRIBUTION WIDTH 13.6 % (11.6-13.7); WHITE BLOOD COUNT (AUTO) 5.5 K/uL (4.8-10.8)
--- NOTE | 2018-09-23 07:10 | NUR ---
REPORT GIVEN TO AM NURSE AT BEDSIDE. PT IN STABLE CONDITION.
[2018-09-23 07:19] LABS: ANION GAP 10.3 (8-16); CARBON DIOXIDE 33.1 mmol/L (21-32); CREATININE 0.7 mg/dL (0.7-1.3); POTASSIUM 4.4 mmol/L (3.5-5.1)
--- NOTE | 2018-09-23 07:21 | NUR ---
RECEIVED REPORT FROM HORSE BREAKER NURSE. PATIENT LYING DOWN IN BED, NO DISTRESS NOTED. FLACC-0. APHASIC, SKIN IS INTACT. RESPIRATIONS EVEN, UNLABORED, ON ROOM AIR. G-TUBE IN PLACE, RUNNING G-TUBE FEEDING PER MD ORDERS. IV SITE INTACT, PATENT, AND ON SALINE LOCK. ABDOMEN SOFT, NON-DISTENDED. CONTRACTURES NOTED ON BUE/BLE. REVIEWED PLAN OF CARE WITH PATIENT BUT PT UNABLE TO COMPREHEND. SAFETY MEASURES IN PLACE, CALL LIGHT WITHIN REACH. WILL CONTINUE TO MONITOR.
[2018-09-23] MEDS: ALBUTEROL 0.083% 2.5 MG/3 ML NEBU INH SCH (07:37)
[2018-09-23 08:00] VITALS: BP 137/86
[2018-09-23] MEDS: POLYETHYLENE GLYCOL 17 GM/PKT PO SCH (09:00)
--- NOTE | 2018-09-23 10:21 | NUR ---
PT MEDICATIONS GIVEN, TOLERATED WELL. PT TURNED AND BED BATH GIVEN. NO SIGNS OF PAIN OR SOB AT THIS TIME. WILL CONTINUE TO ROUND FREQ. BED IN LOW POSITION, CALL LIGHT WITHIN REACH
[2018-09-23] MEDS: SODIUM CHLORIDE 1 GM TAB GT SCH ×2 (11:23→20:15)
[2018-09-23] MEDS: LACTOBACILLUS RHAMNOSUS GG 1 EACH CAP GT SCH (11:24)
[2018-09-23] MEDS: MULTIVITAMIN/MINERALS 1 TAB PO SCH (11:25)
[2018-09-23] MEDS: risperiDONE 1 MG TAB PO SCH ×2 (11:26→20:14)
[2018-09-23] MEDS: LORATADINE 10 MG TAB PO SCH (11:26)
[2018-09-23] MEDS: CYCLOBENZAPRINE 10 MG TAB GT SCH ×3 (11:26→17:49)
[2018-09-23] MEDS: MONTELUKAST SODIUM 10 MG TAB GT SCH (11:27)
[2018-09-23] MEDS: POTASSIUM CHLORIDE 20% 40 MEQ/15 ML UDC GT SCH (11:28)
[2018-09-23] MEDS: LACTULOSE 20 GM/30 ML UDC GT SCH (11:29)
[2018-09-23] MEDS: METOCLOPRAMIDE 10 MG/10 ML SYRP UDC GT SCH ×4 (11:29→20:14)
[2018-09-23] MEDS: FLUTICASONE NASAL 50 MCG/ACTUATION 16 GM BTL NS SCH (11:30)
[2018-09-23] MEDS: levETIRAcetam 100 MG/ML ORASYR GT SCH ×2 (11:30→20:15)
--- NOTE | 2018-09-23 13:24 | NUR ---
PT ASLEEP BUT AROUSABLE. NO S/S OF DISTRESS NOTED. WILL CONTINUE TO MONITOR.
[2018-09-23 16:00] VITALS: BP 110/67
--- NOTE | 2018-09-23 16:35 | NUR ---
PT CALM IN BED. NO SIGNS OF DISTRESS AT THIS TIME. WILL CONTINUE TO ROUND FREQUENTLY ON PT. BED IN LOW POSITION, CALL LIGHT WITHIN REACH. BED ALARM ON.
--- NOTE | 2018-09-23 19:44 | NUR ---
PT ENDORSED TO BLOOD BANK ATTENDANT FOR CONTINUITY OF CARE. PT IN STABLE CONDITION.
--- NOTE | 2018-09-23 19:45 | NUR ---
REPORT RECEIVED FROM AM NURSE AT BEDSIDE. PT IN STABLE CONDITION. AAOX1. INTRODUCED SELF TO PT. BOARD UPDATED. FLACC 0. NO SOB. AFEBRILE. IV SITE R WRIST 22G RUNNING NS TKO PATENT AND INTACT. PT HAS GTUBE RUNNING GLUCERNA 1.2@50ML/HR WITH 160ML FLUSH Q6H PATENT AND INTACT. SKIN WARM, DRY, AND INTACT WITH NO OPEN WOUNDS. BED LOCKED IN LOW POSITION. CALL VAUGHN WITHIN REACH. SAFETY PRECAUTIONS IN PLACE. SEIZURE PRECAUTION IN PLACE. ALL NEEDS MET AT THIS TIME.
--- NOTE | 2018-09-23 20:14 | NUR ---
KEPPRA, LAMICTAL, REGLAN, SALT, AND RISPERDAL GIVEN THROUGH GTUBE. PT TOLERATED WELL. RESIDUAL FROM FEEDING IS 20ML.
--- NOTE | 2018-09-23 20:18 | NUR ---
RECEIVED PATIENT ON ROOM AIR, PULSE OX SAT 96%. NO RESPIRATORY DISTRESS NOTED. WILL CONTINUE TO MONITOR.
--- NOTE | 2018-09-23 23:00 | NUR ---
PT SLEEPING COMFORTABLY SUPINE BUT AROUSABLE. NO S/S OF DISTRESS NOTED. BREATHING EVEN, UNLABORED, AND WNL. WILL CONTINUE TO MONITOR.
[2018-09-24] VITALS: BP 109/68
--- NOTE | 2018-09-24 01:10 | NUR ---
PT SLEEPING COMFORTABLY IN BED BUT AROUSABLE.. NO S/S OF DISTRESS NOTED. BREATHING EVEN, UNLABORED, AND WNL. WILL CONTINUE TO MONITOR.
--- NOTE | 2018-09-24 02:35 | NUR ---
PT SLEEPING COMFORTABLY IN BED. NO S/S OF DISTRESS NOTED. WILL CONTINUE TO MONITOR.
--- NOTE | 2018-09-24 04:10 | NUR ---
PT SLEEPING COMFORTABLY IN BED BUT AROUSABLE. NO S/S OF DISTRESS NOTED. WILL CONTINUE TO MONITOR.
[2018-09-24] MEDS: ALBUTEROL 4 MG GT SCH ×2 (06:03→11:13)
[2018-09-24] MEDS: LEVOTHYROXINE 0.05 MG TAB GT SCH (06:03)
--- NOTE | 2018-09-24 06:03 | NUR ---
SYNTHROID AND ALBUTEROL GIVEN THROUGH GTUBE. PT TOLERATED WELL.
[2018-09-24] MEDS: ALBUTEROL 0.083% 2.5 MG/3 ML NEBU INH SCH (06:42)
[2018-09-24 07:15] LABS: ALBUMIN 3.7 g/dL (3.4-5.0); ANION GAP 11.3 (8-16); CARBON DIOXIDE 34.2 mmol/L (21-32); CREATININE 0.8 mg/dL (0.7-1.3); POTASSIUM 4.5 mmol/L (3.5-5.1); TOTAL BILIRUBIN 0.3 mg/dL (0.0-1.0)
--- NOTE | 2018-09-24 07:15 | NUR ---
REPORT GIVEN TO AM NURSE AT BEDSIDE. PT IN STABLE CONDITION.
--- NOTE | 2018-09-24 07:17 | NUR ---
RECEIVED BEDSIDE REPORT FROM KARLY CORMIER. PATIENT APHASIC AND ON ROOM AIR, NO DISTRESS NOTED. SKIN INTACT. IV ON R WRIST 22 G NS TKO. IV ASYMPTOMATIC, PATENT AND INTACT. FALL RISK PROTOCOL IN PLACE. ON CONTACT ISO FOR MRSA NARES AND ESBL URINE. PATIENT ON MED SURGE. PATIENT UNABLE TO AMBULATE AND INCONTINENT. ON WOUND CARE BED. BED IN LOW POSITION, CALL LIGHT WITHIN REACH. WILL CONTINUE TO MONITOR.
[2018-09-24 07:23] LABS: BASOPHILS % (AUTO) 0.5 % (0.0-2.0); EOSINOPHILS # (AUTO) 0.2 K/uL (0-0.4); EOSINOPHILS % (AUTO) 3.7 % (0.0-4.0); HEMOGLOBIN 11.7 g/dL (12.0-18.0); LYMPHOCYTES # (AUTO) 1.2 K/uL (2.0-11.5); LYMPHOCYTES % (AUTO) 21.1 % (20.5-51.1); MEAN CORPUSCULAR HEMOGLOBIN 28 pg (27-31); MEAN CORPUSCULAR HGB CONC 34 g/dL (33-37); MONOCYTES # (AUTO) 0.5 K/uL (0.8-1.0); MONOCYTES % (AUTO) 8.2 % (1.7-9.3); NEUTROPHILS # (AUTO) 3.8 K/uL (1.8-7.7); NEUTROPHILS % (AUTO) 66.5 % (42.2-75.2); PLATELET COUNT (AUTO) 366 K/uL (140-450); RED BLOOD CELL COUNT(AUTO) 4.22 MIL/uL (4.20-6.10); RED CELL DISTRIBUTION WIDTH 13.4 % (11.6-13.7); WHITE BLOOD COUNT (AUTO) 5.7 K/uL (4.8-10.8)
[2018-09-24 08:00] VITALS: BP 144/79
[2018-09-24] MEDS: FLUTICASONE NASAL 50 MCG/ACTUATION 16 GM BTL NS SCH (09:00)
[2018-09-24] MEDS: LACTOBACILLUS RHAMNOSUS GG 1 EACH CAP GT SCH (09:00)
[2018-09-24] MEDS: POTASSIUM CHLORIDE 20% 40 MEQ/15 ML UDC GT SCH (09:00)
[2018-09-24] MEDS: POLYETHYLENE GLYCOL 17 GM/PKT PO SCH (09:00)
--- NOTE | 2018-09-24 11:00 | NUR ---
ADMINISTERED MEDS. PATIENT TOLERATED WELL. GASTRIC RESIDUAL OF 5 ML AND SWOOSH HEARD. WILL CONTINUE TO MONITOR.
[2018-09-24] MEDS: LACTULOSE 20 GM/30 ML UDC GT SCH (11:09)
[2018-09-24] MEDS: METOCLOPRAMIDE 10 MG/10 ML SYRP UDC GT SCH ×2 (11:09→13:50)
[2018-09-24] MEDS: CYCLOBENZAPRINE 10 MG TAB GT SCH ×2 (11:12→13:49)
[2018-09-24] MEDS: LORATADINE 10 MG TAB PO SCH (11:12)
[2018-09-24] MEDS: risperiDONE 1 MG TAB PO SCH (11:13)
[2018-09-24] MEDS: MULTIVITAMIN/MINERALS 1 TAB PO SCH (11:13)
[2018-09-24] MEDS: MONTELUKAST SODIUM 10 MG TAB GT SCH (11:13)
[2018-09-24] MEDS: levETIRAcetam 100 MG/ML ORASYR GT SCH (11:14)
[2018-09-24] MEDS: SODIUM CHLORIDE 1 GM TAB GT SCH (11:15)
--- NOTE | 2018-09-24 13:56 | NUR ---
ADMINISTERED SCHEDULED MEDS. PATIENT TOLERATED WELL. WILL CONTINUE TO MONITOR.
--- NOTE | 2018-09-24 16:20 | NUR ---
DISCHARGE INSTRUCTIONS PROVIDED TO PATIENT. CAREGIVER AT BEDSIDE. PATIENT UNABLE TO SIGN PAPERS. IV REMOVED, TIP INTACT. PATIENT GOING BACK TO BOARD AND CARE. G TUBE STILL IN PLACE. ANSWERED ALL QUESTIONS AND CONCERNS OF CAREGIVER. PROVIDED CAREGIVER WITH FOLDER OF MEDICAL RECORDS WHILE AT HOSPITAL. WRIST BAND REMOVED. SKIN INTACT.
== END 2018-09-24 16:15 | DRG 720 ==
LOC: MED 12:26 → MTU 15:32
PROVIDERS: ADMIT Preventive Medicine Preventive Medicine/Occupational Environmental Medicine; ATTEND Preventive Medicine Preventive Medicine/Occupational Environmental Medicine
DX: A41.51 Sepsis due to Escherichia coli [E. coli] (principal); E44.0 Moderate protein-calorie malnutrition; E83.52 Hypercalcemia; R13.10 Dysphagia, unspecified; E83.42 Hypomagnesemia; E87.8 Other disorders of electrolyte and fluid balance, not elsewhere classified; E87.1 Hypo-osmolality and hyponatremia; E88.09 Other disorders of plasma-protein metabolism, not elsewhere classified; N39.0 Urinary tract infection, site not specified; R73.9 Hyperglycemia, unspecified; E03.9 Hypothyroidism, unspecified; G40.909 Epilepsy, unspecified, not intractable, without status epilepticus; K21.9 Gastro-esophageal reflux disease without esophagitis; D64.9 Anemia, unspecified; F79 Unspecified intellectual disabilities; H54.62 Unqualified visual loss, left eye, normal vision right eye; J44.9 Chronic obstructive pulmonary disease, unspecified; Z16.12 Extended spectrum beta lactamase (ESBL) resistance; E86.0 Dehydration; Z86.73 Personal history of transient ischemic attack (TIA), and cerebral infarction without residual deficits; Z88.0 Allergy status to penicillin; Z93.1 Gastrostomy status; Z88.8 Allergy status to other drugs, medicaments and biological substances; Z91.011 Allergy to milk products; Z79.899 Other long term (current) drug therapy; Z87.81 Personal history of (healed) traumatic fracture; Z68.26 Body mass index [BMI] 26.0-26.9, adult
CPT/HCPCS: 36415; 36600; 71045; 73080; 80048; 80053; 80156; 81001; 83605; 83735; 84100; 84484; 85025; 85610; 85651; 85730; 86140; 87040; 87081; 87086; 87186; 87804; 93005; 94640; 96361; 96365; 96375; 99285; C1758; J0690; J0696; J2060; J2185; J2920; J2930; J3475; J7030; J7060; J7613; J7644; J8597; Q0092

== ENCOUNTER 2018-11-17 17:39 | Inpatient (IN) | payer MEDICAID ==
[~2018-11-17] VITALS: Ht 162.6 cm; Wt 56.2 kg
[~2018-11-17 17:39] MED LIST changes: -BACTNA NS; -CEPH250C16 PO; -CLIN300C2 PO
--- NOTE | 2018-11-17 17:39 | NUR ---
Patient BIBA ACLS, transferred to bed 10. Dr. Brennan, RN and RT evaluating patient at bedside.
--- NOTE | 2018-11-17 17:39 | NUR ---
CALLED IN A RESP ARREST---PLACED IN ROOM 10; RT AND MD AT BEDSIDE PT ON NON REBREATHER PER EMS BREAKTHROUGH WITH COUPLE PUMPS OF BVM. AUDIBLE WHEEZING, T[place]A, SPO2 <90 RA---HOT TO TOUCH
[2018-11-17] MEDS ORDERED: ALBUTEROL 0.083% 2.5 MG/3 ML NEBU INH ONE (17:40)
[2018-11-17] MEDS ORDERED: methylPREDNISolone SS 125 MG/2 ML VIAL IVP ONE (17:40)
[2018-11-17] MEDS ORDERED: IPRATROPIUM 0.02% 0.5 MG/2.5 ML NEBU INH ONE (17:40)
[2018-11-17] MEDS ORDERED: MAGNESIUM SULFATE 50% 1,000 MG in NACL 0.9% 50 ML IV ONE (17:40)
[2018-11-17 17:57] LABS: BASOPHILS % (AUTO) 0.1 % (0.0-2.0); EOSINOPHILS % (AUTO) 0.3 % (0.0-4.0); HEMATOCRIT 38.6 % (36-52); HEMOGLOBIN 12.9 g/dL (12.0-18.0); LYMPHOCYTES # (AUTO) 0.2 K/uL (2.0-11.5); LYMPHOCYTES % (AUTO) 1.7 % (20.5-51.1); MEAN CORPUSCULAR HEMOGLOBIN 28 pg (27-31); MEAN CORPUSCULAR HGB CONC 33 g/dL (33-37); MEAN CORPUSCULAR VOLUME 84.9 fL (80-94); MONOCYTES # (AUTO) 0.2 K/uL (0.8-1.0); MONOCYTES % (AUTO) 2.5 % (1.7-9.3); NEUTROPHILS # (AUTO) 9.4 K/uL (1.8-7.7); NEUTROPHILS % (AUTO) 95.4 % (42.2-75.2); PLATELET COUNT (AUTO) 219 K/uL (140-450); RED BLOOD CELL COUNT(AUTO) 4.55 MIL/uL (4.20-6.10); RED CELL DISTRIBUTION WIDTH 14.3 % (11.6-13.7); WHITE BLOOD COUNT (AUTO) 9.9 K/uL (4.8-10.8)
[2018-11-17] MEDS ORDERED: MAG SULF 2000 MG/WATER PREMIX 0 ML IV ONE (17:58)
[2018-11-17 18:11] LABS: ANION GAP 13.3 (8-16); CARBON DIOXIDE 26.6 mmol/L (21-32); CREATININE 0.8 mg/dL (0.7-1.3); POTASSIUM 4.9 mmol/L (3.5-5.1)
[2018-11-17] MEDS ORDERED: MAG SULF 2000 MG/WATER PREMIX 50 ML IV ONE (18:24)
[2018-11-17 18:26] LABS: ALBUMIN 3.8 g/dL (3.4-5.0); TOTAL BILIRUBIN 0.5 mg/dL (0.0-1.0)
--- NOTE | 2018-11-17 18:29 | NUR ---
PT FROM [facility] [address]--- PER MEDIC PT WAS SUPINE ON 2 L O2 UPON THEIR ARRIVAL ---NOTABLY IN RESP DISTRESS
[2018-11-17] MEDS ORDERED: CLINDAMYCIN 600 MG in DEXTROSE 5% 50 ML IV ONE (18:35)
[2018-11-17] MEDS ORDERED: DOXYCYCLINE 100 MG in DEXTROSE 5% 100 ML IV ONE (18:35)
[2018-11-17] MEDS ORDERED: VANCOMYCIN 1,000 MG in DEXTROSE 5% 250 ML IV ONE (18:35)
[2018-11-17] MEDS ORDERED: NACL 0.9% 1,000 ML IV ONE (18:45)
[2018-11-17] MEDS ORDERED: CLINDAMYCIN 600 MG/4 ML VIAL ONE (18:53)
--- NOTE | 2018-11-17 18:54 | NUR ---
WATERY STOOL IN DIAPER---CLEANED
--- NOTE | 2018-11-17 18:58 | NUR ---
PASSIVE COOLING MEASURES INITIATED
[2018-11-17 19:20] VITALS: BP 111/72
--- NOTE | 2018-11-17 19:32 | NUR ---
Pt transferred to Tele via [facility] ROOM 111-B REPORT GIVEN TO DANIS CORMIER
--- NOTE | 2018-11-17 20:00 | NUR ---
Patient arrived in unit via gurney, assisted by two PRODUCE DEPARTMENT MANAGER's; patient is A/Ox1, unable to make needs known, aphasic, bedbound and mentally disabled. Introduced self, updated board, oriented patient to hospital environment and room. Chief complaint of respiratory arrest while at [facility]. DX - Pneumonia. NO SOB or distress noted, receiving O2 at 2LPM via nasal cannula. IV site on right antecubital, 20 gauge, intact, running Clindamycin from ER. Skin intact. Bed in the lowest position, call light within reach. Initial assessment done. Will continue to monitor.
--- NOTE | 2018-11-17 20:01 | NUR ---
Addendum to note 2000 - g-tube in place, intact.
[2018-11-17] MEDS ORDERED: ONDANSETRON 4 MG/5 ML ORASYR GT PRN (21:00)
[2018-11-17] MEDS ORDERED: ACETAMINOPHEN EXTRA STRENGTH 500 MG TAB PO PRN (21:00)
[2018-11-17] MEDS ORDERED: POTASSIUM CHL 20 MEQ/NACL 0.9% 1,000 ML IV SCH (21:00)
[2018-11-17] MEDS ORDERED: VANCOMYCIN PER PHARMACY MC PRN (21:00)
[2018-11-17] MEDS ORDERED: DEXT 5% / NACL 0.45% 1,000 ML IV SCH (22:05)
--- NOTE | 2018-11-17 22:15 | NUR ---
Checks made, no SOB noted.
[2018-11-17] MEDS ORDERED: AZTREONAM 1,000 MG VIAL ONE (22:22)
[2018-11-17] MEDS: AZTREONAM 2,000 MG in DEXTROSE 5% 100 ML IV SCH (22:45)
[2018-11-17] MEDS: NACL 0.9% 1,000 ML IV SCH (23:00)
[2018-11-17 23:47] VITALS: BP 119/73
[2018-11-18] MEDS ORDERED: ACETAMINOPHEN 325 MG TAB PO PRN
[2018-11-18] MEDS ORDERED: VANCOMYCIN 1,250 MG in NACL 0.9% 250 ML IV SCH ×2
[2018-11-18] MEDS ORDERED: HYDROcodone/APAP 5/325 MG 1 TAB TAB PO PRN
[2018-11-18] MEDS ORDERED: [UNRECOGNIZED DRUG - REMARK] PO SCH
--- NOTE | 2018-11-18 00:05 | NUR ---
Vitals taken, no distress noted.
[2018-11-18] MEDS ORDERED: VANCOMYCIN 1,000 MG VIAL ONE (00:51)
--- NOTE | 2018-11-18 02:20 | NUR ---
Rounds done, patient asleep, visible chest rise and fall noted.
[2018-11-18] MEDS ORDERED: DOXYCYCLINE 100 MG VIAL IV ONE ×2 (02:47→21:37)
[2018-11-18 04:00] VITALS: BP 125/70
--- NOTE | 2018-11-18 04:10 | NUR ---
Vitals taken, no distress noted.
[2018-11-18] MEDS ORDERED: methylPREDNISolone SS 125 MG/2 ML VIAL IVP SCH (05:00)
[2018-11-18] MEDS: AZTREONAM 2,000 MG in DEXTROSE 5% 100 ML IV SCH ×2 (06:00→14:21)
[2018-11-18] MEDS: METOCLOPRAMIDE 10 MG/10 ML SYRP UDC GT SCH ×4 (06:59→20:39)
[2018-11-18] MEDS: LEVOTHYROXINE 0.05 MG TAB GT SCH (07:00)
--- NOTE | 2018-11-18 07:20 | NUR ---
Endorsed patient to AM shift RN for continuity of care; patient in stable condition.
[2018-11-18] MEDS: ALBUTEROL 0.083% 2.5 MG/3 ML NEBU INH SCH (07:22)
--- NOTE | 2018-11-18 07:30 | NUR ---
PT SEEN RESTING COMFORTABLY IN BED WITH VS MACHINE ON, SPO2 94% ON 2L O2, CALL LIGHT WITHIN REACH, WILL CONTINUE TO MONITOR
[2018-11-18 08:00] VITALS: BP 127/57
[2018-11-18] MEDS: LORazepam 2 MG/ML VIAL IVP PRN (08:12)
[2018-11-18] MEDS ORDERED: POTASSIUM CHLORIDE 10 MEQ TABER PO SCH (09:00)
[2018-11-18] MEDS: LACTOBACILLUS RHAMNOSUS GG 1 EACH CAP PO SCH (09:41)
[2018-11-18] MEDS: risperiDONE 1 MG TAB PO SCH ×2 (09:42→20:40)
[2018-11-18] MEDS: MONTELUKAST SODIUM 10 MG TAB GT SCH (09:43)
[2018-11-18] MEDS: LACTULOSE 20 GM/30 ML UDC PO SCH (09:43)
[2018-11-18] MEDS: levETIRAcetam 100 MG/ML ORASYR GT SCH ×2 (09:43→20:39)
[2018-11-18] MEDS: LORATADINE 10 MG TAB PO SCH (09:43)
[2018-11-18] MEDS: methylPREDNISolone SS 40 MG/ML VIAL IVP SCH ×2 (09:44→20:40)
[2018-11-18] MEDS: CYCLOBENZAPRINE 10 MG TAB PO SCH ×3 (09:44→17:18)
[2018-11-18] MEDS: hydrOXYzine HCL 10 MG TAB PO SCH ×3 (09:47→17:17)
[2018-11-18] MEDS: POLYETHYLENE GLYCOL 17 GM/PKT PO SCH (09:47)
[2018-11-18] MEDS: SODIUM CHLORIDE 1 GM TAB PO SCH ×2 (09:53→20:40)
[2018-11-18] MEDS: MULTIVIT/MIN/CA/FE/FA 1 TAB PO SCH (09:55)
--- NOTE | 2018-11-18 10:33 | NUR ---
STARTED G TUBE FEEDING GLUCERNA 1.2 50ML WITH 160 ML WATER FLUSH Q6HR. CHECKED RESIDUAL EARLIER, WAS 0 ML. GAVE HIS AM MEDS. WILL CONTINUE TO MONITOR
[2018-11-18 10:37] LABS: PHOSPHORUS 2.7 mg/dL (2.5-4.9)
[2018-11-18 10:54] LABS: CARBON DIOXIDE 25.8 mmol/L (21-32); POTASSIUM 3.8 mmol/L (3.5-5.1)
[2018-11-18 10:55] LABS: CREATININE 0.5 mg/dL (0.7-1.3)
[2018-11-18 11:01] LABS: HEMATOCRIT 34.7 % (36-52); HEMOGLOBIN 11.7 g/dL (12.0-18.0); MEAN CORPUSCULAR HEMOGLOBIN 28 pg (27-31); MEAN CORPUSCULAR HGB CONC 34 g/dL (33-37); MEAN CORPUSCULAR VOLUME 84.1 fL (80-94); PLATELET COUNT (AUTO) 213 K/uL (140-450); RED BLOOD CELL COUNT(AUTO) 4.13 MIL/uL (4.20-6.10); RED CELL DISTRIBUTION WIDTH 14.3 % (11.6-13.7); WHITE BLOOD COUNT (AUTO) 13.5 K/uL (4.8-10.8)
[2018-11-18 11:17] LABS: BASOPHILS % (MANUAL) 0 % (0-2); EOSINOPHILS % (MANUAL) 1 % (0-4); LYMPHOCYTES % (MANUAL) 5 % (20-46); MONOCYTES % (MANUAL) 2 % (5-12)
[2018-11-18 12:00] VITALS: BP 112/54
[2018-11-18] MEDS ORDERED: VANCOMYCIN 1,250 MG in DEXTROSE 5% 250 ML IV SCH (12:00)
--- NOTE | 2018-11-18 13:17 | NUR ---
PT RESTING COMFORTABLY IN BED WITH CALL LIGHT WITHIN REACH, WILL CONTINUE TO MONITOR
--- NOTE | 2018-11-18 13:31 | NUR ---
PATIENT HAS BEEN SCREENED AND CATEGORIZED HIGH NUTRITION RISK. PATIENT WILL BE SEEN WITHIN 1-2 DAYS OF ADMISSION. 11/18/17MARIE GILBERT MBA, RD
[2018-11-18 16:00] VITALS: BP 104/69
--- NOTE | 2018-11-18 17:15 | NUR ---
MED TEGRETOL OUT OF STOCK. MADE HARD METALS ENGRAVER HAND PETRONA AWARE.
[2018-11-18] MEDS: HYDROcodone/APAP 5/325 MG 1 TAB TAB PO PRN (17:53)
[2018-11-18] MEDS ORDERED: carBAMazepine 200 MG TAB ONE (18:10)
--- NOTE | 2018-11-18 18:40 | NUR ---
CALLED FLOORING HELPER PETRONA ABOUT CAN'T CRUSH TEGRETOL TABLET, PT HAS G TUBE NEEDS ORAL SUSPENSION.
--- NOTE | 2018-11-18 18:48 | NUR ---
PT RESTING IN BED, NO S/S OF ACUTE DISTRESS. FLACC 0
--- NOTE | 2018-11-18 19:10 | NUR ---
ENDORSED PT TO CARPENTER SUPERVISOR WOODEN SHIP RN, PT RESTING COMFORTABLY IN BED, CALL LIGHT WITHIN REACH, TEGRETOL NOT GIVEN, SINGER BACK TENDER TRYING TO FIND LIQUID SYRINGE FORM, CARPENTER SUPERVISOR WOODEN SHIP MADE AWARE
--- NOTE | 2018-11-18 19:10 | NUR ---
MAME RUSS CALLED, STATED OK TO CRUSH TEGRETOL TAB AND GIVE VIA G TUBE. ENDORSED TO PRECISION HONING MACHINE OPERATOR RN, SRIDEVI.
--- NOTE | 2018-11-18 19:30 | NUR ---
Received endorsement from AM shift RN; patient is A/Ox1, unable to make needs known, aphasic, bedbound and mentally disabled. Introduced self, updated board. NO SOB or distress noted, receiving O2 at 2LPM via nasal cannula. IV site on right antecubital, 20 gauge, intact, running IVF at 100mL/hr. G-tube in place, with feeding Glucerna 50mL/hr., H2O flush 160mL every 6 hours. Skin intact. Bed in the lowest position, call light within reach. Initial assessment done. Will continue to monitor.
[2018-11-18 20:00] VITALS: BP 97/49
[2018-11-18] MEDS ORDERED: cefTRIAXone 1,000 MG VIAL ONE (20:28)
[2018-11-18] MEDS: NACL 0.9% 1,000 ML IV SCH (20:36)
--- NOTE | 2018-11-18 20:50 | NUR ---
Vitals taken, due meds given. Tolerated well.
[2018-11-18] MEDS: DOXYCYCLINE 100 MG in DEXTROSE 5% 100 ML IV SCH (21:36)
--- NOTE | 2018-11-18 22:05 | NUR ---
Frequent checks made, patient asleep, eyes closed, visible chest rise and fall noted.
[2018-11-19] VITALS: BP 114/76
--- NOTE | 2018-11-19 00:10 | NUR ---
Vitals taken, no distress noted. Patient sleeping on left lateral side.
--- NOTE | 2018-11-19 02:00 | NUR ---
Frequent checks made, patient asleep, eyes closed, visible chest rise and fall noted.
[2018-11-19 04:00] VITALS: BP 133/76
--- NOTE | 2018-11-19 04:40 | NUR ---
Rounds made, no distress noted.
--- NOTE | 2018-11-19 06:07 | NUR ---
Checks made, no SOB or distress noted.
[2018-11-19] MEDS: LEVOTHYROXINE 0.05 MG TAB GT SCH (06:27)
[2018-11-19] MEDS: METOCLOPRAMIDE 10 MG/10 ML SYRP UDC GT SCH ×4 (06:30→21:44)
[2018-11-19 06:59] LABS: BASOPHILS % (AUTO) 0.1 % (0.0-2.0); EOSINOPHILS # (AUTO) 0.1 K/uL (0-0.4); EOSINOPHILS % (AUTO) 1.1 % (0.0-4.0); HEMATOCRIT 33.7 % (36-52); HEMOGLOBIN 11.3 g/dL (12.0-18.0); LYMPHOCYTES % (AUTO) 10.3 % (20.5-51.1); MEAN CORPUSCULAR HEMOGLOBIN 29 pg (27-31); MEAN CORPUSCULAR HGB CONC 34 g/dL (33-37); MEAN CORPUSCULAR VOLUME 85.1 fL (80-94); MONOCYTES # (AUTO) 0.5 K/uL (0.8-1.0); MONOCYTES % (AUTO) 5.4 % (1.7-9.3); NEUTROPHILS # (AUTO) 7.8 K/uL (1.8-7.7); NEUTROPHILS % (AUTO) 83.1 % (42.2-75.2); PLATELET COUNT (AUTO) 200 K/uL (140-450); RED BLOOD CELL COUNT(AUTO) 3.96 MIL/uL (4.20-6.10); RED CELL DISTRIBUTION WIDTH 14.4 % (11.6-13.7); WHITE BLOOD COUNT (AUTO) 9.4 K/uL (4.8-10.8)
--- NOTE | 2018-11-19 07:05 | NUR ---
Endorsed patient to AM shift RN for continuity of care; patient in stable condition.
--- NOTE | 2018-11-19 07:06 | NUR ---
RECEIVED BEDSIDE REPORT, PT APHASIC, NO RESPIRATORY DISTRESS ON 2L NC , BEDBOUND, PT INCONTINENT, G-TUBE SITE CLEAN DRY AND INTACT INFUSING GLUCERNA 1.2 AT 50ML/HR, H20 FLUSH 160ML Q6H, SKIN INTACT, PT ADMITTED WITH L ARM FRACTURE WITH CAST IN PLACE, IV R FOREARM 20G NS RUNNING AT 100ML/HR, ON FALL RISK AND SEIZURE PRECAUTION, ON CONTACT PRECAUTION FOR HX OF +ESBL URINE/BLOOD, ON TELE MONITOR,BED IN LOW POSITION, CALL LIGHT WITHIN REACH, WILL CONTINUE TO MONITOR
[2018-11-19 07:15] LABS: ALBUMIN 3.2 g/dL (3.4-5.0); ANION GAP 9.6 (8-16); CARBON DIOXIDE 29.3 mmol/L (21-32); CREATININE 0.5 mg/dL (0.7-1.3); POTASSIUM 3.9 mmol/L (3.5-5.1); TOTAL BILIRUBIN 0.3 mg/dL (0.0-1.0)
[2018-11-19] MEDS: ALBUTEROL 0.083% 2.5 MG/3 ML NEBU INH SCH (07:15)
[2018-11-19 08:00] VITALS: BP 115/72
--- NOTE | 2018-11-19 09:00 | NUR ---
PATIENT IN BED. NO SIGNS OF DISTRESS. WILL CONTINUE TO MONITOR
[2018-11-19] MEDS: POLYETHYLENE GLYCOL 17 GM/PKT PO SCH (09:39)
[2018-11-19] MEDS: risperiDONE 1 MG TAB PO SCH ×2 (09:39→20:43)
[2018-11-19] MEDS: LACTOBACILLUS RHAMNOSUS GG 1 EACH CAP PO SCH (09:39)
[2018-11-19] MEDS: MULTIVIT/MIN/CA/FE/FA 1 TAB PO SCH (09:40)
[2018-11-19] MEDS: MONTELUKAST SODIUM 10 MG TAB GT SCH (09:40)
[2018-11-19] MEDS: hydrOXYzine HCL 10 MG TAB PO SCH ×3 (09:40→18:00)
[2018-11-19] MEDS: CYCLOBENZAPRINE 10 MG TAB PO SCH ×3 (09:40→18:01)
[2018-11-19] MEDS: methylPREDNISolone SS 40 MG/ML VIAL IVP SCH ×2 (09:41→20:39)
[2018-11-19] MEDS: SODIUM CHLORIDE 1 GM TAB PO SCH ×2 (09:41→18:01)
[2018-11-19] MEDS: LACTULOSE 20 GM/30 ML UDC PO SCH (09:42)
[2018-11-19] MEDS: levETIRAcetam 100 MG/ML ORASYR GT SCH ×2 (09:42→20:39)
[2018-11-19] MEDS: DOXYCYCLINE 100 MG in DEXTROSE 5% 100 ML IV SCH ×2 (09:43→21:44)
[2018-11-19] MEDS: POTASSIUM CHLORIDE 20% 40 MEQ/15 ML UDC GT SCH (09:44)
[2018-11-19] MEDS: LORATADINE 10 MG TAB PO SCH (09:44)
--- NOTE | 2018-11-19 10:23 | NUR ---
CHECKED GTUBE PLACEMENT USING SWOOSH. SWOOSH HEARD. CRUSHED AND ADMINISTERED MEDS. PATIENT TOLERATED WELL. EDUCATED ON SIDE EFFECTS. PATIENT UNABLE TO VERBALIZE UNDERSTANDING. APHASIC. NEW GTUBE FEEDING STARTED. BED IN LOW POSITION. CALL LIGHT WITHIN REACH. WILL CONTINUE TO MONITOR THE PATIENT
--- NOTE | 2018-11-19 11:28 | NUR ---
MICAELA DE SANTIAGO DID STRAIGHT CATH AND GOT UA AND URINE CX PER DR DICK ORDER. URINE WAS SENT TO LAB
[2018-11-19 12:00] VITALS: BP 141/95
--- NOTE | 2018-11-19 12:08 | NUR ---
TUBE FEEDING H20 FLUSH CHANGED TO [id number] PER DR ORDER. WILL CONTINUE TO MONITOR THE PATIENT
--- NOTE | 2018-11-19 12:46 | NUR ---
CHECKED GTUBE USING SWOOSH. SWOOSH HEARD. NO RESIDUAL AT THIS TIME. CRUSHED AND ADMINISTERED MEDS. FLUSHED BEFORE AND AFTER ADMINISTRATION. EDUCATED PATIENT ON SIDE EFFECTS. PATIENT CANNOT VERBALIZE UNDERSTANDING. WILL CONTINUE TO MONITOR THE PATIENT
[2018-11-19] MEDS ORDERED: SODIUM CHLORIDE 1 GM TAB PO SCH (13:30)
[2018-11-19 13:35] LABS: APPEARANCE,URINE CLEAR (CLEAR); BILIRUBIN,URINE NEGATIVE (NEGATIVE); BLOOD, URINE NEGATIVE (NEGATIVE); COLOR,URINE YELLOW (YELLOW); LEUKOCYTE ESTERASE ,URINE NEGATIVE (NEGATIVE); NITRITE, URINE NEGATIVE (NEGATIVE); UGLUCOSE NEGATIVE (NEGATIVE)
--- NOTE | 2018-11-19 14:01 | NUR ---
PATIENT LAYING IN BED. NO SIGNS OF DISTRESS ON 2L NC. WILL CONTINUE TO MONITOR THE PATIENT
--- NOTE | 2018-11-19 15:46 | NUR ---
PATIENT IS SLEEPING. NO SIGNS OF DISTRESS ON 2L NC. WILL CONTINUE TO MONITOR THE PATIENT.
--- NOTE | 2018-11-19 15:57 | NUR ---
11/19/18 RD INITIAL ASSESSMENT COMPLETED PLEASE REFER TO NUTRITION ASSESSMENT UNDER CARE ACTIVITY FOR ESTIMATED NUTRITIONAL NEEDS. 1. CONTINUE GLUCERNA 1.2 AT 50 ML/HR 2. CONTINUE FREE WATER FLUSH [address] TO FOLLOW-UP 2-3 DAYS, HIGH RISK JUAN CARLOS SOTO, RD
[2018-11-19 16:00] VITALS: BP 110/73
--- NOTE | 2018-11-19 17:56 | NUR ---
PATIENT VOMITED, PATIENT PUTTING HIS FINGERS IN HIS MOUTH AND VOMITED. SUCTIONED PATIENTS MOUTH. FEEDING STOPPED, LUNGS ARE CLEAR AND 95% ON 2L NC.
--- NOTE | 2018-11-19 19:26 | NUR ---
GAVE BED SIDE REPORT TO WEFT STRAIGHTENER RN, PT ENDORSED IN STABLE CONDITION
--- NOTE | 2018-11-19 19:27 | NUR ---
RECEIVED REPORT AT BEDSIDE FROM DAY SHIFT NURSE. PT SLEEPING AND IN STABLE CONDITION. ON 2LPM VIA NC. NO S/S OF SOB OR ANY DISCOMFORT NOTED. NO N/V NOTED AT THIS TIME. IV SITE ON RAC 20G, SALINE LOCK, PATENT AND INTACT. SKIN INTACT. WARM AND DRY. G-TUBE SITE INTACT AND DRY. FEEDING ON HOLD AT THIS TIME. CAST ON L ARM NOTED. SEIZURE PRECAUTION AND FALL PRECAUTION IN PLACE. BED IN LOW POSITION. CALL LIGHT WITHIN REACH.
[2018-11-19 20:00] VITALS: BP 137/84
--- NOTE | 2018-11-19 20:52 | NUR ---
CHECKED GT RESIDUAL 0 ML. DUE MEDS GIVEN. PT TOLERATED WELL. STARTED FEEDING AT 50 ML/HR. ASPIRATION PRECAUTION IN PLACE.
--- NOTE | 2018-11-19 23:00 | NUR ---
PT RESTING COMFORTABLY IN BED, AWAKE, APHASIC. NO S/S OF SOB, N/V NOTED. PT TOLERATING ON FEEDING WELL. WILL CONTINUE TO MONITOR.
[2018-11-20] VITALS: BP 132/82
--- NOTE | 2018-11-20 01:10 | NUR ---
PT SLEEPING COMFORTABLY. RESPIRATION EVEN AND UNLABORED. NO S/S OF PAIN OR DISCOMFORT. PT KEPT DRY AND COMFORTABLE.
--- NOTE | 2018-11-20 03:23 | NUR ---
IV LEAKING. REMOVED CATHETER, TIP INTACT. INSERTED IV TO RIGHT HAND 22G. GOOD FLUSH AND BLOOD RETURN. PT TOLERATED PROCEDURE WELL.
[2018-11-20 04:00] VITALS: BP 134/79
--- NOTE | 2018-11-20 05:27 | NUR ---
PT SLEEPING. NO S/S OF ANY DISCOMFORT. NO S/S OF SOB. TOLERATING FEEDING WELL.
[2018-11-20] MEDS: METOCLOPRAMIDE 10 MG/10 ML SYRP UDC GT SCH ×4 (06:40→20:19)
[2018-11-20] MEDS: LEVOTHYROXINE 0.05 MG TAB GT SCH (06:41)
--- NOTE | 2018-11-20 06:50 | NUR ---
PT VOMITED LIGHT BROWN IN COLOR. FEEDING HELD. GT RESIDUAL 0 ML. DUE MED REGLAN 10 MG GIVEN. V/S WNL. PT CLEANSED AND CHANGED. ASPIRATION PRECAUTION IN PLACE.
[2018-11-20] MEDS: ALBUTEROL 0.083% 2.5 MG/3 ML NEBU INH SCH (07:08)
--- NOTE | 2018-11-20 07:20 | NUR ---
ENDORSED PATIENT TO DAY SHIFT NURSE. PT IN STABLE CONDITION. NO S/S OF SOB OR ANY DISCOMFORT NOTED.
--- NOTE | 2018-11-20 07:21 | NUR ---
RECEIVED BEDSIDE REPORT FROM STOCK HOLDER NURSE. PATIENT IS AWAKE, APHASIC W MENTAL DELAY. PATIENT HAS NO SIGNS OF DISTRESS ON 2L NC. SKIN IS INTACT. BEDBOUND, FALL RISK PROTOCOL IN PLACE. SEIZURE AND ASP PRECAUTIONS IN PLACE. R HAND 22G SL. CLEAN, DRY AND INTACT. GTUBE IN PLACE. NO FEEDING AT THIS TIME D/T VOMITING AT 0640 PER STOCK HOLDER RN. CONTACT PRECAUTIONS FOR HX OF ESBL URINE AND BLOOD. BED IN LOW POSITION. CALL LIGHT WITHIN REACH. WILL CONTINUE TO MONITOR THE PATIENT
[2018-11-20 08:00] VITALS: BP 130/89
[2018-11-20 08:52] LABS: BASOPHILS % (AUTO) 0.1 % (0.0-2.0); EOSINOPHILS # (AUTO) 0.1 K/uL (0-0.4); EOSINOPHILS % (AUTO) 0.8 % (0.0-4.0); HEMATOCRIT 35.5 % (36-52); HEMOGLOBIN 11.7 g/dL (12.0-18.0); LYMPHOCYTES # (AUTO) 0.8 K/uL (2.0-11.5); LYMPHOCYTES % (AUTO) 10.3 % (20.5-51.1); MEAN CORPUSCULAR HEMOGLOBIN 28 pg (27-31); MEAN CORPUSCULAR HGB CONC 33 g/dL (33-37); MEAN CORPUSCULAR VOLUME 85.4 fL (80-94); MONOCYTES # (AUTO) 0.5 K/uL (0.8-1.0); MONOCYTES % (AUTO) 7.1 % (1.7-9.3); NEUTROPHILS # (AUTO) 6.3 K/uL (1.8-7.7); NEUTROPHILS % (AUTO) 81.7 % (42.2-75.2); PLATELET COUNT (AUTO) 211 K/uL (140-450); RED BLOOD CELL COUNT(AUTO) 4.16 MIL/uL (4.20-6.10); WHITE BLOOD COUNT (AUTO) 7.7 K/uL (4.8-10.8)
[2018-11-20 08:59] LABS: ANION GAP 8.9 (8-16); CARBON DIOXIDE 34.8 mmol/L (21-32); CREATININE 0.7 mg/dL (0.7-1.3); POTASSIUM 3.7 mmol/L (3.5-5.1)
--- NOTE | 2018-11-20 09:00 | NUR ---
PATIENT IS SLEEPING. NO SIGNS OF DISTRESS. WILL CONTINUE TO MONITOR THE PATIENT
[2018-11-20] MEDS: LORATADINE 10 MG TAB PO SCH (09:44)
[2018-11-20] MEDS: MONTELUKAST SODIUM 10 MG TAB GT SCH (09:46)
[2018-11-20] MEDS: levETIRAcetam 100 MG/ML ORASYR GT SCH ×2 (09:46→20:19)
[2018-11-20] MEDS: POLYETHYLENE GLYCOL 17 GM/PKT PO SCH (09:46)
[2018-11-20] MEDS: LACTOBACILLUS RHAMNOSUS GG 1 EACH CAP PO SCH (09:47)
[2018-11-20] MEDS: LACTULOSE 20 GM/30 ML UDC PO SCH (09:47)
[2018-11-20] MEDS: SODIUM CHLORIDE 1 GM TAB PO SCH ×3 (09:47→16:44)
[2018-11-20] MEDS: hydrOXYzine HCL 10 MG TAB PO SCH ×3 (09:47→16:43)
[2018-11-20] MEDS: MULTIVIT/MIN/CA/FE/FA 1 TAB PO SCH (09:48)
[2018-11-20] MEDS: POTASSIUM CHLORIDE 20% 40 MEQ/15 ML UDC GT SCH (09:48)
[2018-11-20] MEDS: DOXYCYCLINE 100 MG in DEXTROSE 5% 100 ML IV SCH ×2 (09:49→20:29)
[2018-11-20] MEDS: methylPREDNISolone SS 40 MG/ML VIAL IVP SCH ×2 (09:51→20:22)
[2018-11-20] MEDS: CYCLOBENZAPRINE 10 MG TAB PO SCH ×3 (09:56→16:43)
[2018-11-20] MEDS: risperiDONE 1 MG TAB PO SCH ×2 (09:56→20:21)
--- NOTE | 2018-11-20 10:04 | NUR ---
CHECKED GTUBE USING SWOOSH. SWOOSH HEARD. NO RESIDUAL. CRUSHED AND ADMINISTERED MEDS. FLUSHED BEFORE AND AFTER. EDUCATED ON SIDE EFFECTS. PATIENT TOLERATED WELL. WILL CONTINUE TO MONITOR THE PATIENT. FEEDING STARTED AGAIN GLUCERNA 50ML W H20 FLUSH [id number]
[2018-11-20 12:00] VITALS: BP 138/83
--- NOTE | 2018-11-20 12:00 | NUR ---
PATIENT LAYING IN BED. NO SIGNS OF DISTRESS. WILL CONTINUE TO MONITOR
--- NOTE | 2018-11-20 14:30 | NUR ---
PAGED Elana SHELDON TO FOLLOW UP WHAT TIME HE IS COMING TO DISCHARGE PT TODAY.
--- NOTE | 2018-11-20 14:35 | NUR ---
PATIENT IS SLEEPING. NO SIGNS OF DISTRESS. WILL CONTINUE TO MONITOR
[2018-11-20 16:00] VITALS: BP 141/79
--- NOTE | 2018-11-20 16:18 | NUR ---
Asad SHELDON CALLED BACK STATED HE WILL COME TO SEE PT AT 5 PM TODAY.
--- NOTE | 2018-11-20 16:50 | NUR ---
CHECKED GTUBE USING SWOOSH. SWOOSH HEARD. NO RESIDUAL. CRUSHED AND ADMINISTERED MEDS. FLUSHED BEFORE AND AFTER. EDUCATED ON SIDE EFFECTS, PATIENT APHASIC. BED IN LOW POSITION. WILL CONTINUE TO MONITOR
--- NOTE | 2018-11-20 19:18 | NUR ---
GAVE BEDSIDE REPORT TO CEMENT GUN OPERATOR NURSE. PATIENT ENDORSED IN STABLE CONDITION
--- NOTE | 2018-11-20 19:19 | NUR ---
RECEIVED BEDSIDE REPORT FROM DAY SHIFT NURSE. PT IN STABLE CONDITION. NO S/S OF SOB OR ANY RESPIRATORY DISTRESS NOTED ON O2 2LPM VIA NC. SKIN INTACT. WARM AND DRY TO TOUCH. G-TUBE IN PLACE AND FEEDING WITH GLUCERNA 1.2 @50ML. IV SITE R HAND, 22G. INTACT AND PATENT. CONTACT PRECAUTIONS FOR HX OF ESBL URINE AND BLOOD. BED IN LOW POSITION. CALL LIGHT WITHIN REACH. WILL CONTINUE TO MONITOR.
[2018-11-20 20:00] VITALS: BP 122/66
--- NOTE | 2018-11-20 20:29 | NUR ---
KEGEMINI LAMICTAL REGLAN RISPERDAL GIVEN THRU G-TUBE, SOLU-MEDROL GIVEN BY IV PUSH, AND VIBRAMYCIN GIVEN BY IVPB. PT TOLERATED WELL.
--- NOTE | 2018-11-20 22:14 | NUR ---
PT VOMITED. HELD G-TUBE FEEDING AND CHANGED PT. RESTART FEEDING @ 10MLS/HR. WILL CONTINUE TO MONITOR.
[2018-11-20] MEDS: HYDROcodone/APAP 5/325 MG 1 TAB TAB PO PRN (23:57)
--- NOTE | 2018-11-20 23:57 | NUR ---
PT MOANING. FLACC 5 NOTED. GIVEN NORCO PRN ORDERED. PT TOLERATED. WILL CONTINUE TO MONITOR.
[2018-11-21] VITALS: BP 148/84
--- NOTE | 2018-11-21 02:14 | NUR ---
CHECKED RESIDUAL, 0ML. INCREASED FEEDING RATE BY 10ML. FEEDING RUNNING @ 20MLS/HR. WATER FLUSH 50ML Q6H. PT TOLERATED WELL.
--- NOTE | 2018-11-21 03:55 | NUR ---
PT SLEEPING. PT TOLERATED WELL WITH FEEDING. G-TUBE SITE INTACT AND DRY. NO S/S OF RESPIRATORY DISTRESS NOTED. BED IN LOW POSITION. WILL CONTINUE TO MONITOR.
[2018-11-21 04:00] VITALS: BP 130/68
[2018-11-21] MEDS: LEVOTHYROXINE 0.05 MG TAB GT SCH (06:35)
[2018-11-21] MEDS: METOCLOPRAMIDE 10 MG/10 ML SYRP UDC GT SCH ×4 (06:35→20:05)
--- NOTE | 2018-11-21 07:30 | NUR ---
ENDORSED PT TO DAY SHIFT NURSE DANIS RN, PT STABLE, NO DISTRESS NOTED, CALL LIGHT WITHIN REACH.
[2018-11-21] MEDS: ALBUTEROL 0.083% 2.5 MG/3 ML NEBU INH SCH (07:53)
[2018-11-21 08:00] VITALS: BP 110/83
[2018-11-21 08:21] LABS: BASOPHILS % (AUTO) 0.1 % (0.0-2.0); EOSINOPHILS # (AUTO) 0.1 K/uL (0-0.4); HEMOGLOBIN 12.1 g/dL (12.0-18.0); LYMPHOCYTES # (AUTO) 0.9 K/uL (2.0-11.5); LYMPHOCYTES % (AUTO) 13.7 % (20.5-51.1); MEAN CORPUSCULAR HEMOGLOBIN 28 pg (27-31); MEAN CORPUSCULAR HGB CONC 34 g/dL (33-37); MEAN CORPUSCULAR VOLUME 84.7 fL (80-94); MONOCYTES # (AUTO) 0.6 K/uL (0.8-1.0); MONOCYTES % (AUTO) 8.9 % (1.7-9.3); NEUTROPHILS # (AUTO) 5.2 K/uL (1.8-7.7); NEUTROPHILS % (AUTO) 76.3 % (42.2-75.2); PLATELET COUNT (AUTO) 227 K/uL (140-450); RED BLOOD CELL COUNT(AUTO) 4.25 MIL/uL (4.20-6.10); RED CELL DISTRIBUTION WIDTH 13.8 % (11.6-13.7); WHITE BLOOD COUNT (AUTO) 6.8 K/uL (4.8-10.8)
[2018-11-21 08:38] LABS: ANION GAP 11.4 (8-16); CREATININE 0.6 mg/dL (0.7-1.3); POTASSIUM 3.4 mmol/L (3.5-5.1)
[2018-11-21] MEDS: POTASSIUM CHLORIDE 20% 40 MEQ/15 ML UDC GT SCH (08:51)
[2018-11-21] MEDS: DOXYCYCLINE 100 MG in DEXTROSE 5% 100 ML IV SCH ×2 (08:51→20:13)
[2018-11-21] MEDS: POLYETHYLENE GLYCOL 17 GM/PKT PO SCH (08:52)
[2018-11-21] MEDS: LACTULOSE 20 GM/30 ML UDC PO SCH (08:52)
[2018-11-21] MEDS: methylPREDNISolone SS 40 MG/ML VIAL IVP SCH ×2 (08:52→20:06)
[2018-11-21] MEDS: MULTIVIT/MIN/CA/FE/FA 1 TAB PO SCH (08:53)
[2018-11-21] MEDS: CYCLOBENZAPRINE 10 MG TAB PO SCH ×3 (08:53→17:04)
[2018-11-21] MEDS: LORATADINE 10 MG TAB PO SCH (08:53)
[2018-11-21] MEDS: LACTOBACILLUS RHAMNOSUS GG 1 EACH CAP PO SCH (08:54)
[2018-11-21] MEDS: levETIRAcetam 100 MG/ML ORASYR GT SCH ×2 (08:54→20:06)
[2018-11-21] MEDS: hydrOXYzine HCL 10 MG TAB PO SCH ×3 (08:54→17:03)
[2018-11-21] MEDS: SODIUM CHLORIDE 1 GM TAB PO SCH ×3 (08:54→17:04)
[2018-11-21] MEDS: MONTELUKAST SODIUM 10 MG TAB GT SCH (08:55)
[2018-11-21] MEDS: risperiDONE 1 MG TAB PO SCH ×2 (08:55→20:07)
--- NOTE | 2018-11-21 10:30 | NUR ---
CHANGED PATIENT SOILED BEDDING AND GOWN, WASHED PATIENT. PT POSITION CHANGED AND OFFLOADED PRESSURE AREAS WELL. NO ACUTE DISTRESS AT THIS TIME.
--- NOTE | 2018-11-21 11:30 | NUR ---
CHANGED PATIENT DUE TO SOILED BEDDING AND GOWN AFTER BOWEL MOVEMENT. REPOSITIONED FOR COMFORT. NO ACUTE DISTRESS.
[2018-11-21 12:00] VITALS: BP 143/82
--- NOTE | 2018-11-21 12:30 | NUR ---
CHECKED PT RESIDUAL VIA G TUBE. 0 ML NOTED. NO ACUTE DISTRESS AT THIS TIME.
--- NOTE | 2018-11-21 14:35 | NUR ---
CHANGED PATIENT GOWN AND BEDDING AFTER SOILED FROM URINATION. CHANGED G TUBE FEEDING SET UP. PT NOT IN ACUTE DISTRESS AT THIS TIME.
[2018-11-21 16:00] VITALS: BP 104/66
[2018-11-21] MEDS ORDERED: ACETAMINOPHEN 325 MG TAB PO PRN (16:30)
--- NOTE | 2018-11-21 17:10 | NUR ---
REPOSITIONED PATIENT AND CHECKED RESIDUAL, FOUND TO BE 0 ML. PT WENT BACK TO SLEEP AFTER POSITIONING, NO SIGNS OF OBVIOUS DISTRESS.
--- NOTE | 2018-11-21 19:26 | NUR ---
SBAR REPORT GIVEN TO NIGHT RN AT PT BEDSIDE. PATIENT CONTINUED ON TUBE FEEDING, NO ACUTE DISTRESS NOTED.
--- NOTE | 2018-11-21 19:27 | NUR ---
RECEIVED BEDSIDE REPORT FROM DAY SHIFT NURSE. PT IN STABLE CONDITION. PT AOX1 AND APHASIC. NO S/S OF SOB OR ANY RESPIRATORY DISTRESS ON 2LPM O2 VIA NC. SKIN INTACT, WARM AND DRY TO TOUCH. IV SITE R HAND 22G, PATENT, INTACT, AND ASYMPTOMATIC. G-TUBE FEEDING WITH GLUCERNA 1.2 @ 50MLS/HR. PT TOLERATING WELL. NO N/V NOTED AT THIS TIME. STANDARD AND FALL PRECAUTION IN PLACE. BED IN LOW POSITION. WILL CONTINUE TO MONITOR.
--- NOTE | 2018-11-21 19:33 | NUR ---
JONNY AGUIAR AND RUNNING. PT TOLERATED WELL.
[2018-11-21 20:00] VITALS: BP 151/97
--- NOTE | 2018-11-21 20:06 | NUR ---
KEPPRA, REGLAN, LAMICTAL, RISPERDAL GIVEN THRU G-TUBE, VIBRAMYCIN GIVEN THRU IVPB, AND SOLU-MEDROL GIVEN THRU IV PUSH MD ORDERED. PT TOLERATED WELL.
--- NOTE | 2018-11-21 20:25 | NUR ---
RECEIVED PATIENT ON 2L NASAL CANNULA, PULSE OX SAT 97%. NO RESPIRATORY DISTRESS NOTED AT THIS TIME. WILL CONTINUE TO MONITOR.
[2018-11-21] MEDS: HYDROcodone/APAP 5/325 MG 1 TAB TAB PO PRN (21:22)
--- NOTE | 2018-11-21 21:22 | NUR ---
FLACC5 NOTED. GIVEN NORCO PRN ORDER VIA G-TUBE. PT TOLERATED WELL. WILL CONTINUE TO MONITOR.
--- NOTE | 2018-11-21 22:30 | NUR ---
PT LINEN AND GOWN CHANGED.
[2018-11-22] VITALS: BP 152/82
--- NOTE | 2018-11-22 00:05 | NUR ---
VITAL SIGN TAKEN, WITHIN BASELINE. PT IN STABLE CONDITION. WILL CONTINUE TO MONITOR.
--- NOTE | 2018-11-22 00:59 | NUR ---
NAUSEA NOTED. GIVEN ZOFRAN VIA G-TUBE MD ORDERED. PT TOLERATED WELL. WILL CONTINUE TO MONITOR.
--- NOTE | 2018-11-22 03:15 | NUR ---
PT SLEEPING WITHOUT ANY DISTRESS. BREATHING EVENLY AND UNLABORED WITH O2 2LPM NC. WILL CONTINUE TO MONITOR.
[2018-11-22 04:00] VITALS: BP 119/95
[2018-11-22] MEDS: LEVOTHYROXINE 0.05 MG TAB GT SCH (06:44)
[2018-11-22] MEDS: METOCLOPRAMIDE 10 MG/10 ML SYRP UDC GT SCH ×3 (06:44→17:31)
--- NOTE | 2018-11-22 06:44 | NUR ---
SYNTHROID AND REGLAN GIVEN VIA GTUBE. 0 RESIDUAL NOTED. PT TOLERATED WELL.
--- NOTE | 2018-11-22 07:26 | NUR ---
BEDSIDE REPORT GIVEN TO DAY SHIFT NURSE. PT IN STABLE CONDITION.
--- NOTE | 2018-11-22 07:27 | NUR ---
RECEIVED REPORT FROM PM NURSE AT THE BEDSIDE. PT LYING ON HIS BED. PT IS ON SEIZURE PRECAUTION. SIDE RAILS ARE PADDED. HAS GT IN PLACE, INFUSING AT 50 ML/HR WITH 10O ML FLUSH EVERY 6 HRS. IV SITE ON RT HAND, SL, 22 G. PT IS DEVELOPMENTAL UNDERGROWTH. HAS CAST ON HIS LEFT HAND. TOTAL CARE, BEDREST. NO DISTRESS NOTED AT THIS TIME. HAS O2 VIA NC 2LPM. ALL SAEFTY MEASURE IN PLACE. WILL CONTINUE TO MONITOR PT.
[2018-11-22 08:00] VITALS: BP 147/90
[2018-11-22 08:17] LABS: BASOPHILS % (AUTO) 0.3 % (0.0-2.0); EOSINOPHILS % (AUTO) 0.7 % (0.0-4.0); HEMATOCRIT 34.8 % (36-52); HEMOGLOBIN 12.1 g/dL (12.0-18.0); LYMPHOCYTES # (AUTO) 1.1 K/uL (2.0-11.5); LYMPHOCYTES % (AUTO) 16.5 % (20.5-51.1); MEAN CORPUSCULAR HEMOGLOBIN 29 pg (27-31); MEAN CORPUSCULAR HGB CONC 35 g/dL (33-37); MEAN CORPUSCULAR VOLUME 84.4 fL (80-94); MONOCYTES # (AUTO) 0.7 K/uL (0.8-1.0); MONOCYTES % (AUTO) 10.7 % (1.7-9.3); NEUTROPHILS # (AUTO) 4.9 K/uL (1.8-7.7); NEUTROPHILS % (AUTO) 71.8 % (42.2-75.2); PLATELET COUNT (AUTO) 270 K/uL (140-450); RED BLOOD CELL COUNT(AUTO) 4.12 MIL/uL (4.20-6.10); RED CELL DISTRIBUTION WIDTH 13.8 % (11.6-13.7); WHITE BLOOD COUNT (AUTO) 6.8 K/uL (4.8-10.8)
[2018-11-22 08:23] LABS: ANION GAP 9.6 (8-16); CARBON DIOXIDE 34.9 mmol/L (21-32); CREATININE 0.6 mg/dL (0.7-1.3); POTASSIUM 3.5 mmol/L (3.5-5.1)
[2018-11-22 08:35] LABS: MAGNESIUM 1.6 mg/dL (1.8-2.4); PHOSPHORUS 5.3 mg/dL (2.5-4.9)
[2018-11-22] MEDS: hydrOXYzine HCL 10 MG TAB PO SCH ×3 (09:00→17:30)
[2018-11-22] MEDS: CYCLOBENZAPRINE 10 MG TAB PO SCH ×3 (09:00→17:30)
[2018-11-22] MEDS: LORATADINE 10 MG TAB PO SCH (09:00)
[2018-11-22] MEDS: risperiDONE 1 MG TAB PO SCH (09:00)
[2018-11-22] MEDS: MONTELUKAST SODIUM 10 MG TAB GT SCH (09:00)
[2018-11-22] MEDS: ALBUTEROL 0.083% 2.5 MG/3 ML NEBU INH SCH (09:24)
[2018-11-22] MEDS: LACTULOSE 20 GM/30 ML UDC PO SCH (09:35)
[2018-11-22] MEDS: levETIRAcetam 100 MG/ML ORASYR GT SCH (09:35)
[2018-11-22] MEDS: POTASSIUM CHLORIDE 20% 40 MEQ/15 ML UDC GT SCH (09:36)
[2018-11-22] MEDS: DOXYCYCLINE 100 MG in DEXTROSE 5% 100 ML IV SCH (09:36)
[2018-11-22] MEDS: methylPREDNISolone SS 40 MG/ML VIAL IVP SCH (09:36)
[2018-11-22] MEDS: POLYETHYLENE GLYCOL 17 GM/PKT PO SCH (09:37)
[2018-11-22] MEDS: SODIUM CHLORIDE 1 GM TAB PO SCH ×3 (09:38→17:31)
[2018-11-22] MEDS: LACTOBACILLUS RHAMNOSUS GG 1 EACH CAP PO SCH (09:38)
[2018-11-22] MEDS ORDERED: MAG SULF 2000 MG/WATER PREMIX 50 ML IV SCH (10:00)
--- NOTE | 2018-11-22 10:19 | NUR ---
ADMINISTERED MEDS TO PT ORDERED.5 ML GASTRIC RESIDUAL. NO SIGN OF DISTRESS NOTED. TOLERATED ALL MEDS WELL. CHANGED THE PT WITH HELP OF PIPELINE TECHNICIAN, REPOSITIONED HIM. ALL SAFETY MEASURE IN PLACE. SIDE RAILS PADDED. WILL CONTINUE TO MONITOR PT.
[2018-11-22] MEDS: LORazepam 2 MG/ML VIAL IVP PRN ×2 (10:44→15:27)
--- NOTE | 2018-11-22 10:45 | NUR ---
PT APPEARED RESTLESS AT THIS TIME. MEDICATED WITH ATIVAN ORDERED. HELPED REPOSITIONED PT. SIDE RAILS PADDED, ELEVATED HOB. WILL CONTINUE TO MONITOR PT.
[2018-11-22] MEDS: HYDROcodone/APAP 5/325 MG 1 TAB TAB PO PRN (12:00)
--- NOTE | 2018-11-22 12:09 | NUR ---
PT STILL APPEARS RESTLESS. KICKING AND MOANING . ADMINISTERED PAIN MEDS TO PT. PT HAD BIG BM, LIQUID IN NATURE. CHANGED AND REPOSITIONED THE PT. ALL SAFETY MEASURE IN PLACE. WILL CONTINUE TO MONITOR THE PT.
[2018-11-22 12:42] VITALS: BP 148/102
[2018-11-22] MEDS ORDERED: SODI100076 PO (14:02)
[2018-11-22] MEDS ORDERED: DOXY100C9 PO (14:02)
--- NOTE | 2018-11-22 14:09 | NUR ---
11/22/18 RD FOLLOW UP COMPLETED PLEASE REFER TO NUTRITION ASSESSMENT UNDER CARE ACTIVITY FOR ESTIMATED NUTRITIONAL NEEDS. 1. CONTINUE GLUCERNA 1.2 AT 45 ML/HR -THIS WILL PROVIDE 1080 ML OF VOLUME, 1296 KCAL, 64.8 G PROTEIN. IT MEETS 82% OF ENERGY NEEDS AND 80% OF PROTEIN NEEDS. 2. RECOMMEND ADVANCING TUBE FEED RATE BACK TO 50 ML/HR WHEN PT IS MEDICALLY STABLE 3. RD TO FOLLOW-UP 2-3 DAYS, HIGH RISK JUAN CARLOS SOTO RD
--- NOTE | 2018-11-22 14:18 | NUR ---
MEDICATED MEDS ORDERED. CHANGED THE TUBE FEEDING, NO RESIDUAL BACK FROM THE GT AT THIS TIME. PT RESTING WELL IN HIS BED. NO SIGN OF DISTRESS NOTED . ALL SAFETY MEASURE IN PLACE. WILL CONTINUE TO MONITOR PT.
--- NOTE | 2018-11-22 14:33 | NUR ---
CONTACTED [facility] AND SPOKE WITH AMBROCIO REGARDING PT'S DISCHARGE. AMBROCIO STATED SHE WILL SCHEDULE A OFFICE CLERK ASSISTANT AT 4PM TODAY. SITAL-NURSE ASSIGNED MADE AWARE.
--- NOTE | 2018-11-22 14:46 | NUR ---
RECEIVED A CALL FROM MISS HERNANDEZ (COMPUTING CONSULTANT OF [facility]) TEL#[phone], STATED THAT THEY DON'T HAVE A TRANSPORTATION FOR PT AT 4 PM BUT SHE WILL TRY HER BEST TO [employer]CTION [employer] THE PT TODAY. MS BENAVIDEZ STATED SHE WILL CALL US WITH THE ETA. ARIELA NOTIFIED.
--- NOTE | 2018-11-22 15:14 | NUR ---
CHECKED ON THE PT. SLIGHTLY AGITATED. VS NOTED BP 148/98, HR 102. O2 SAT 94% ON RA. PT MOANING. FACIAL GRIMACING. WILL MEDICATE WITH PAIN MEDS ORDERED .
--- NOTE | 2018-11-22 15:28 | NUR ---
MEDICATED PT WITH ATIVAN AT THIS TIME. NO PAIN MEDS DUE. PT TOLERATED WELL. WILLCONTINUE TO MONITOR PT.
[2018-11-22 16:00] VITALS: BP 143/96
--- NOTE | 2018-11-22 18:00 | NUR ---
PT DISCHARGED TO [facility] WITH ALL THE DISCHARGE INSTRUCTION AND THE PRESCRIPTION. PT STABLE AND NOT IN ANY DISTRESS AT THE TIME OF DISCHARGE. PT G-TUBE INTACT. TRANSFERRED PT TO HIS WHEELCHAIR SAFELY WITH THE HELP FO THE OTHER RN. PT STABLE. CAREGIVER WHEELED OUT PT AND TRANSFERRED PT TO TRANSPORT VEHICLE.
== END 2018-11-22 18:00 | DRG 720 ==
LOC: MED 17:39 → MTU 18:58
PROVIDERS: ADMIT Internal Medicine Cardiovascular Disease; ATTEND Internal Medicine Cardiovascular Disease
DX: A41.9 Sepsis, unspecified organism (principal); J81.0 Acute pulmonary edema; G82.50 Quadriplegia, unspecified; E22.2 Syndrome of inappropriate secretion of antidiuretic hormone; R13.10 Dysphagia, unspecified; J18.9 Pneumonia, unspecified organism; E87.0 Hyperosmolality and hypernatremia; E88.09 Other disorders of plasma-protein metabolism, not elsewhere classified; J45.901 Unspecified asthma with (acute) exacerbation; Z93.1 Gastrostomy status; K21.9 Gastro-esophageal reflux disease without esophagitis; K44.9 Diaphragmatic hernia without obstruction or gangrene; G40.909 Epilepsy, unspecified, not intractable, without status epilepticus; J45.909 Unspecified asthma, uncomplicated; R73.9 Hyperglycemia, unspecified; E87.6 Hypokalemia; E83.52 Hypercalcemia; E83.42 Hypomagnesemia; D64.9 Anemia, unspecified; E03.9 Hypothyroidism, unspecified; F79 Unspecified intellectual disabilities; Z86.73 Personal history of transient ischemic attack (TIA), and cerebral infarction without residual deficits; Z91.011 Allergy to milk products; Z88.8 Allergy status to other drugs, medicaments and biological substances; Z79.899 Other long term (current) drug therapy
CPT/HCPCS: 36415; 71045; 74018; 80048; 80053; 81003; 83605; 83735; 83880; 84100; 85025; 85651; 86140; 87040; 87081; 87086; 87804; 94640; 96365; 96367; 96375; 99285; C1758; J0696; J2060; J2920; J2930; J3370; J3475; J3490; J7030; J7042; J7060; J7613; J7644; J8597; Q0092; Q0162

== ENCOUNTER 2018-11-24 22:59 | Emergency (ER) | payer MEDICAID ==
[~2018-11-24] VITALS: Ht 147.3 cm; Wt 40.8 kg
[2018-11-24 22:59] VITALS: BP 119/90
[~2018-11-24 22:59] MED LIST changes: +DOXY100C9 PO
--- NOTE | 2018-11-24 22:59 | NUR ---
PT ARACELI BLS. TAKEN TO BED 7
--- NOTE | 2018-11-24 23:04 | NUR ---
Dr. Pryor evaluating patient at bedside.
--- NOTE | 2018-11-24 23:15 | NUR ---
[facility]LO[facility] J-G TUBE. CURRENTLY HAS PNEUMONIA AND UNDER IV ANTIBIOTIC TREATMENT. AFEBRILE WITH VSS. UNABLE TO FLUSH OR ASPIRATE G TUBE. PATEINT IN BED RAILS UP X2, BED IN LOW LOCKED POSITION.
--- NOTE | 2018-11-25 | NUR ---
X-Ray at bedside.
[2018-11-25 01:24] VITALS: BP 140/68
--- NOTE | 2018-11-25 01:25 | NUR ---
Patient discharged with v/s stable. Written and verbal after care instructions given and explained. Patient verbalized understanding. Ambulance Transport with [facility]. All questions addressed prior to discharge. Called facility at [phone] to inform them that the patient was returning.
== END 2018-11-25 01:25 | disposition home or self-care (01) ==
LOC: MED 22:59
DX: K94.23 Gastrostomy malfunction (principal); J45.909 Unspecified asthma, uncomplicated; K21.9 Gastro-esophageal reflux disease without esophagitis; Z86.73 Personal history of transient ischemic attack (TIA), and cerebral infarction without residual deficits; Z79.2 Long term (current) use of antibiotics; Z79.899 Other long term (current) drug therapy; Z88.0 Allergy status to penicillin; Z88.8 Allergy status to other drugs, medicaments and biological substances; Z91.011 Allergy to milk products
CPT/HCPCS: 43762; 74241; 99284; Q9967

== ENCOUNTER 2019-06-17 12:15 | Inpatient (IN) | payer MEDICAID ==
[~2019-06-17] VITALS: Ht 175.3 cm; Wt 59.4 kg
[~2019-06-17 12:15] MED LIST changes: -ALBU4TAB21 PO; +CARB100T GT; -CARB100T PO; -CHLO118S2 TP; -COM25S RC; -FLONAS NS; +MIRABULK GT; -MIRABULK PO; -MYCC TP; +POTA20LI41 GT; -POTA20LI41 PO; +[UNRECOGNIZED DRUG - CODE] GT; -[UNRECOGNIZED DRUG - CODE] PO
[2019-06-17 12:20] VITALS: BP 131/106
--- NOTE | 2019-06-17 12:25 | NUR ---
BIBA C/O SOB X TODAY WHELE AT [facility]. LUNG SOUNDS SOUND RONCHI ALL THROUGHOUT. PRODUCTIVE COUGH PRESENT. NO RESP DISTRESS NOTED. VSS. SPO2 100% ON 6L FACE MASK. CAREGIVER AMBROCIO AT BEDSIDE. GTUBE PRESENT ON LUQ. BREATHING TX WAS GIVEN ON THE AMBULANCE. SUCTIONED UPON ARRIVAL TO ER PT NON-VERBAL, NON-AMBULATORY HX- SPASTIC QUAD, CONTRACTURES, SEIZURES, HIATEL HERNIA, GERD, ASTHMA, PEPTIC ULCER DISEASE, SCOLIOSIS. ALLERGIES: PENICILLIN,QUINOLONES, AND MILK.
[2019-06-17] MEDS ORDERED: ALBUTEROL SULFATE/IPRATROPIU 3 ML SOL IH ONE (12:30)
[2019-06-17] MEDS ORDERED: ALBUTEROL 0.083% 2.5 MG/3 ML NEBU INH ONE ×2 (12:30→13:50)
--- NOTE | 2019-06-17 12:32 | NUR ---
RT AT BEDSIDE.
--- NOTE | 2019-06-17 12:48 | NUR ---
XR AT BEDSIDE.
[2019-06-17] MEDS ORDERED: NACL 0.9% 1,000 ML IV SCH (13:09)
[2019-06-17] MEDS ORDERED: AZITHROMYCIN 500 MG in DEXTROSE 5% 250 ML IV ONE (13:10)
[2019-06-17] MEDS ORDERED: methylPREDNISolone SS 125 MG/2 ML VIAL IVP ONE (13:10)
[2019-06-17] MEDS ORDERED: AZITHROMYCIN 500 MG INJ VIAL IV ONE (13:21)
[2019-06-17] MEDS ORDERED: RISP0.5T3 GT (13:28)
[2019-06-17] MEDS ORDERED: KEP500L GT (13:28)
[2019-06-17] MEDS ORDERED: BACL10TA4 GT (13:28)
[2019-06-17] MEDS ORDERED: FLOR250 GT (13:28)
[2019-06-17] MEDS ORDERED: LORA10TA19 GT (13:28)
[2019-06-17] MEDS ORDERED: LACT10SO93 GT (13:28)
[2019-06-17] MEDS ORDERED: ALBU4TAB21 GT (13:28)
[2019-06-17] MEDS ORDERED: CYCL5TAB GT (13:28)
[2019-06-17] MEDS ORDERED: PUL.5N NEB (13:28)
[2019-06-17] MEDS ORDERED: METO5SOL19 GT (13:28)
[2019-06-17] MEDS ORDERED: SODI100076 GT (13:28)
[2019-06-17] MEDS ORDERED: NA P133E RC (13:38)
[2019-06-17] MEDS ORDERED: ACET-1182 GT (13:38)
[2019-06-17] MEDS ORDERED: BISA-246 RC (13:38)
[2019-06-17] MEDS ORDERED: IBUP-2213 GT (13:38)
[2019-06-17] MEDS ORDERED: ATA10 GT (13:38)
[2019-06-17] MEDS ORDERED: GUAI-646 GT (13:38)
[2019-06-17] MEDS ORDERED: FLONAS NS (13:38)
[2019-06-17 13:39] LABS: BASOPHILS % (AUTO) 0.3 % (0.0-2.0); EOSINOPHILS % (AUTO) 0.5 % (0.0-4.0); HEMATOCRIT 37.1 % (36-52); HEMOGLOBIN 12.3 g/dL (12.0-18.0); LYMPHOCYTES # (AUTO) 1.2 K/uL (2.0-11.5); LYMPHOCYTES % (AUTO) 15.7 % (20.5-51.1); MEAN CORPUSCULAR HEMOGLOBIN 29 pg (27-31); MEAN CORPUSCULAR HGB CONC 33 g/dL (33-37); MEAN CORPUSCULAR VOLUME 86.4 fL (80-94); MONOCYTES # (AUTO) 0.8 K/uL (0.8-1.0); MONOCYTES % (AUTO) 10.5 % (1.7-9.3); NEUTROPHILS # (AUTO) 5.8 K/uL (1.8-7.7); PLATELET COUNT (AUTO) 204 K/uL (140-450); RED CELL DISTRIBUTION WIDTH 13.9 % (11.6-13.7); WHITE BLOOD COUNT (AUTO) 7.9 K/uL (4.8-10.8)
[2019-06-17] MEDS ORDERED: KETOROLAC 30 MG/ML VIAL IVP ONE (13:50)
[2019-06-17] MEDS ORDERED: LORazepam 2 MG/ML VIAL IVP ONE (14:00)
--- NOTE | 2019-06-17 14:01 | NUR ---
RT AT BEDSIDE
[2019-06-17 14:55] LABS: ANION GAP 11.5 (8-16); CARBON DIOXIDE 28.1 mmol/L (21-32); CREATININE 0.4 mg/dL (0.7-1.3); POTASSIUM 4.6 mmol/L (3.5-5.1)
[2019-06-17 14:56] LABS: ALBUMIN 3.4 g/dL (3.4-5.0); TOTAL BILIRUBIN 0.3 mg/dL (0.0-1.0)
[2019-06-17 15:30] VITALS: BP 111/81
--- NOTE | 2019-06-17 15:30 | NUR ---
APatient will be admitted to care of DR CRAWLEY. Admited to TELE. Will go to room 112B. Belongings list completed. Report to SERENA CORMIER.
--- NOTE | 2019-06-17 15:30 | NUR ---
RECEIVED REPORT FROM EMERGENCY ROOM NURSE FOR CONTINUITY OF CARE. PT IN STABLE CONDITION. RESPIRATIONS EVEN AND UNLABORED, 02 4L VIA NC. IV INTACT AND PATENT. SAFETY MEASURES IN PLACE. BED IN LOW POSITION. CALL LIGHT AT BEDSIDE. BED ALARM ON. WILL CONTINUE TO MONITOR.
--- NOTE | 2019-06-17 17:41 | NUR ---
SPOKE TO SISI FROM [facility] . SISI STATED PT IS FULL CODE. SISI WILL FAX THE MEDICATIONS LIST.
[2019-06-17] MEDS ORDERED: hydrOXYzine HCL 10 MG TAB GT PRN (19:10)
[2019-06-17] MEDS ORDERED: IBUPROFEN 600 MG TAB GT SCH (19:10)
[2019-06-17] MEDS ORDERED: ACETAMINOPHEN 325 MG TAB GT PRN (19:10)
[2019-06-17] MEDS ORDERED: SODIUM PHOSPHATE 118 ML ENEM RC PRN (19:10)
[2019-06-17] MEDS ORDERED: BISACODYL 10 MG SUPP RC PRN (19:10)
[2019-06-17] MEDS ORDERED: [UNRECOGNIZED DRUG - REMARK] GT PRN (19:10)
[2019-06-17] MEDS ORDERED: ONDANSETRON 4 MG/2 ML VIAL IVP PRN (19:20)
--- NOTE | 2019-06-17 19:20 | NUR ---
RECEIVED REPORT FROM BRIAN RN DAYSHIFT NURSE AT BEDSIDE FOR CONTINUITY OF CARE, PT IN STABLE CONDITION.
--- NOTE | 2019-06-17 19:20 | NUR ---
GAVE REPORT TO PULP AND PAPER TESTER NURSE FOR CONTINUITY OF CARE. PT IN STABLE CONDITION.
[2019-06-17] MEDS: ALBUTEROL 0.083% 2.5 MG/3 ML NEBU INH SCH (19:57)
[2019-06-17] MEDS: BUDESONIDE 0.5 MG/2 ML NEBU INH SCH (19:58)
[2019-06-17 20:00] VITALS: BP 132/90
--- NOTE | 2019-06-17 20:00 | NUR ---
PT IN BED AOX1 HOB UP 35% SKIN INTACT WITH 2 IV SITES 20G ON BOTH R AND L WRISTS, INTACT AND ASYMPTOMATIC IV FLUIDS D51/2NS ORDERED AT 100MLS AN HR. SEIZURE PRECAUTIONS IN PLACE V/S FOLLOWS T 97.6 P 98 R 20 B/P 132/90 02 94% ON 3 LITERS VIA N/C. BOWEL SOUND HYPOACTIVE AND LUNGS SOUNDS DIMINISHED WITH RHONCHI. NG TUBE INTACT WITH NO RESIDUAL NOTED. ALL FALLS AND SEIZURE PRECAUTIONS IN PLACE.
--- NOTE | 2019-06-17 20:10 | NUR ---
1957 PATIENT HAS SHORTNESS OF BREATH RR 30. PT HAS BILAT WHEEZING AND RHONCHI. PT GIVEN ALBUTEROL HHNTX AND PULMICORT HHNTX. PT ON 3LNC SATS 96%. SXNED PT MOUTH MOD AMT SECRETIONS.MILD IMPROVEMENT WITH BS POST HHNTX
[2019-06-17] MEDS ORDERED: methylPREDNISolone SS 40 MG/ML VIAL IVP SCH (21:00)
--- NOTE | 2019-06-17 21:30 | NUR ---
PT GIVEN ALL ORDERED MEDS VIA GT, WHICH IS INTACT , FLUSHED PATENT WITH NO RESIDUAL NOTED. PT ALSO RECEIVED ORDERED SOLUMEDROL VIA IV ON RIGHT WRIST. IV FLUIDS OF D51/2NS RUNNING AT 100MLS/HR ORDERED. INFECTIOUS DISEASE DOCTOR EMMA WAS AT BEDSIDE FOR A CONSULT.
[2019-06-17] MEDS: DEXT 5% / NACL 0.45% 1,000 ML IV SCH (21:44)
[2019-06-17] MEDS: levETIRAcetam 100 MG/ML ORASYR GT SCH (21:45)
[2019-06-17] MEDS: METOCLOPRAMIDE 10 MG/10 ML SYRP UDC GT SCH (21:47)
[2019-06-17] MEDS: risperiDONE 1 MG TAB GT SCH (21:47)
[2019-06-17] MEDS: LORazepam 2 MG/ML VIAL IVP PRN (22:05)
--- NOTE | 2019-06-17 22:15 | NUR ---
PT HAD SEVERAL SMALL SEIZURES, WHICH CONSISTED OF EYES ROLLING AND PT KICKING OUT AND MOVING EXTREMITIES. PT WAS GIVEN ORDERED ATIVAN FOR AGITATION, WHICH HAD A POSITIVE EFFECT, WILL CALL RISK CONTROL PRODUCT LIABILITY DIRECTOR MD TO INFORM THEM AND INQUIRE ABOUT ANY NEW ORDERS.
--- NOTE | 2019-06-17 22:53 | NUR ---
SPOKE WITH DR. CRAWLEY REGARDING PT SEIZURES, HE SAID TO GIVE ATIVAN POST SEIZURES, NO INCREASE IN SEIZURE MEDICATIONS AT THIS TIME, BUT HE DID ORDER A NEURO CONSULT WITH MD MERINO. CURRENTLY THE PT IS IN BED RESTING NO MORE SEIZURE ACTIVITY NOTED. WILL CONTINUE TO MONITOR PT FOR SEIZURE ACTIVITY, ALL SEIZURE AND FALLS PRECAUTIONS IN PLACE, HOB ELEVATED 35%.
[2019-06-18] VITALS: BP 118/58
--- NOTE | 2019-06-18 | NUR ---
PT IN BED HE WAS TURNED AND REPOSITIONED, N/C IN PLACE AND RUNNING AT 3MLS/HR. V/S FOLLOWS : T 97.6 P 102 R 20 B/P 118/58 02 97% ON 3 LITERS VIA N/C. ALL FALLS PRECAUTIONS IN PLACE.
--- NOTE | 2019-06-18 01:00 | NUR ---
INFLUENZA A AND B SWAB COLLECTED
[2019-06-18] MEDS ORDERED: ALBUTEROL SULFATE/IPRATROPIU 3 ML SOL IH ONE (01:49)
--- NOTE | 2019-06-18 01:56 | NUR ---
patient has shortness of breath. gilberto aragon called dr santizo for hhntx. patient given duoneb hhntx.
[2019-06-18 04:00] VITALS: BP 120/79
--- NOTE | 2019-06-18 04:00 | NUR ---
PT TURNED, CHANGED AND REPOSITIONED IN BED. V/S S FOLLOWS: T 97 P 91 R 18 B/P 120/79 02 99% ON ROOM AIR. ALL FALLS AND SEIZURE PRECAUTIONS IN PLACE, NO SEIZURE ACTIVITY NOTED.
[2019-06-18] MEDS: ALBUTEROL 0.083% 2.5 MG/3 ML NEBU INH SCH ×5 (06:40→23:28)
[2019-06-18] MEDS: BUDESONIDE 0.5 MG/2 ML NEBU INH SCH ×3 (06:40→20:01)
[2019-06-18] MEDS: LEVOTHYROXINE 0.05 MG TAB GT SCH (06:58)
[2019-06-18] MEDS: DEXT 5% / NACL 0.45% 1,000 ML IV SCH ×2 (07:04→16:48)
--- NOTE | 2019-06-18 07:11 | NUR ---
PT GIVEN ORDERED AM SYNTHROID, NO S/S OF PAIN OR DISTRESS NOTED. ALL FALLS AND SEIZURE PRECAUTIONS IN PLACE.
--- NOTE | 2019-06-18 07:12 | NUR ---
RECEIVED BEDSIDE REPORT FROM CAMP COORDINATOR NURSE. PATIENT IS AWAKE, APHASIC. ON 3L NC NO RESP DISTRESS NOTED. BEDBOUND, CONTRACTED. FALL RISK PROTOCOL IN PLACE. SKIN IS INTACT. IV ON L WRIST 20G SL. R WRIST 20G INFUSING NS AT 100. CLEAN, DRY AND INTACT. TELE MONITOR IN PLACE. BED IN LOW POSITION. INCONTINENT. UNABLE TO MAKE NEEDS KNOWN. CALL LIGHT WITHIN REACH. WILL CONTINUE TO MONITOR THE PATIENT.
[2019-06-18 07:15] LABS: HEMATOCRIT 33.4 % (36-52); LYMPHOCYTES # (AUTO) 0.7 K/uL (2.0-11.5); LYMPHOCYTES % (AUTO) 7.8 % (20.5-51.1); MEAN CORPUSCULAR HEMOGLOBIN 29 pg (27-31); MEAN CORPUSCULAR HGB CONC 33 g/dL (33-37); MEAN CORPUSCULAR VOLUME 86.6 fL (80-94); MONOCYTES # (AUTO) 0.5 K/uL (0.8-1.0); MONOCYTES % (AUTO) 5.8 % (1.7-9.3); NEUTROPHILS # (AUTO) 8.1 K/uL (1.8-7.7); NEUTROPHILS % (AUTO) 86.4 % (42.2-75.2); PLATELET COUNT (AUTO) 179 K/uL (140-450); RED BLOOD CELL COUNT(AUTO) 3.86 MIL/uL (4.20-6.10); RED CELL DISTRIBUTION WIDTH 13.5 % (11.6-13.7); WHITE BLOOD COUNT (AUTO) 9.4 K/uL (4.8-10.8)
[2019-06-18] MEDS ORDERED: ACETAMINOPHEN 650 MG/20.3 ML UDC GT PRN (07:24)
[2019-06-18] MEDS ORDERED: IBUPROFEN CHILDRENS 100 MG/5 ML UDC GT PRN (07:35)
[2019-06-18 08:00] VITALS: BP 139/77
--- NOTE | 2019-06-18 08:25 | NUR ---
PATIENT HAS BEEN SCREENED AND CATEGORIZED HIGH NUTRITION RISK. PATIENT WILL BE SEEN WITHIN 1-2 DAYS OF ADMISSION. 06/18/19-06/19/[address]
[2019-06-18] MEDS ORDERED: NON-FORMULARY ITEM (Potassium Chloride 20 MEQ) GT SCH (09:00)
[2019-06-18] MEDS ORDERED: NON-FORMULARY ITEM (Saccharomyces Boulardii* (Florastor*) 250 MG) GT SCH (09:00)
[2019-06-18] MEDS ORDERED: CYCLOBENZAPRINE HCL 5 MG GT SCH (09:00)
[2019-06-18] MEDS ORDERED: CARBAMAZEPINE 300 MG GT SCH (09:00)
[2019-06-18] MEDS ORDERED: LACTULOSE GT SCH (09:00)
--- NOTE | 2019-06-18 09:00 | NUR ---
PATIENT IN NO DISTRESS. WILL CONTINUE TO MONITOR THE PATIENT.
[2019-06-18] MEDS: METOCLOPRAMIDE 10 MG/10 ML SYRP UDC GT SCH ×4 (10:02→20:34)
[2019-06-18] MEDS: risperiDONE 1 MG TAB GT SCH ×2 (10:03→20:33)
[2019-06-18] MEDS: POTASSIUM CHLORIDE 20% 40 MEQ/15 ML UDC GT SCH (10:03)
[2019-06-18] MEDS: LACTOBACILLUS RHAMNOSUS GG 1 EACH CAP PO SCH (10:03)
[2019-06-18] MEDS: LACTULOSE 20 GM/30 ML UDC GT SCH (10:03)
[2019-06-18] MEDS: LORATADINE 10 MG TAB GT SCH (10:04)
[2019-06-18] MEDS: SODIUM CHLORIDE 1 GM TAB GT SCH ×3 (10:04→16:45)
[2019-06-18] MEDS: BACLOFEN 10 MG TAB GT SCH ×3 (10:04→16:45)
[2019-06-18] MEDS: levETIRAcetam 100 MG/ML ORASYR GT SCH ×2 (10:05→20:35)
[2019-06-18] MEDS: POLYETHYLENE GLYCOL 17 GM/PKT GT SCH (10:05)
[2019-06-18] MEDS: CYCLOBENZAPRINE 10 MG TAB GT SCH ×3 (10:06→16:44)
--- NOTE | 2019-06-18 10:16 | NUR ---
ADMINISTERED MEDS. PATIENT TOLERATED WELL. NO SIGNS OF DISTRESS. EDUCATED ON MEDS. PATIENT IS APHASIC. WILL CONTINUE TO MONITOR THE PATIENT
[2019-06-18 10:50] LABS: ANION GAP 10.7 (8-16); CARBON DIOXIDE 27.4 mmol/L (21-32); POTASSIUM 4.1 mmol/L (3.5-5.1)
[2019-06-18 10:51] LABS: CREATININE 0.4 mg/dL (0.7-1.3)
--- NOTE | 2019-06-18 11:15 | NUR ---
PATIENT WAS CLEANSED BY SOCIAL SCIENCE PROFESSOR. NO SIGNS OF DISTRESS. WILL CONTINUE TO MONITOR
--- NOTE | 2019-06-18 11:36 | NUR ---
Manager Ccu Note: Basic Screen: Yes High Risk DC Screen Yes Name: KIRK Martinez Relationship: OTHER RELATIONSHIP Pre-Admission Living Arrangements: [facility] Other: [facility] Prior ADL Needs Assistance Current Home Health Name/Tel: N/A Current DME/02 Name/Tel: OXYGEN, WHEELCHAIR Current Hospice Name/Tel: N/A Current Dialysis Name/Tel: N/A Healthcare Decision Maker: Other Other: IRC WORKER - SUSANNE Advance Directive No Physician Orders for Life Sustaining Treatment Form No Patient/Family Have Educational Needs No Discipline: Case Mgt/Social Svcs Tentative Discharge Plan/Destination: [facility] Will require assistance post discharge: No Referred to [employer] Back Tender: No Tentative Discharge Plan Summary: Patient is a 53-year-old male admitted for respiratory acute. Patient has PMHX of asthma. Patient was admitted from [facility]. NEHEMIAS contacted Ednacorky Alcaraz [phone], patient's nurse at [facility]. Per Edna, patient has a mental health history of developmental delays. NEHEMIAS inquired if patient has an IRC worker. Edna stated that patient's IRC worker is Susanne, but was unable to provide IRC worker's last name or phone number. Edna reported that IRC is patient's healthcare decision maker. Edna stated she would call back with last name and contact information. Edna stated that patient's tentative discharge plan is to return to [facility]. NEHEMIAS will follow up as needed. Signature: MISA Moy Date: Jun 18, 2019 Time: 11:34 Addendum: 06/18/19 at 1608 by Preston Molina Edna contacted SW to provide information to patient's IRC worker. Patient's IRC worker's name is Susanne Spencer [phone]. Edna stated that Lidia is aware of hospitalization. SW will follow up as needed.
[2019-06-18 12:00] VITALS: BP 113/65
--- NOTE | 2019-06-18 13:11 | NUR ---
DC PLANN[age] YRS OLD MALE ADMITTED FROM [facility] , WITH A DX OF RESPIRATORY ACUTE. PT HAS A HX OF ASTHMA , SEIZURE, MENTALLY CHALLENGE , G-TUBE FEEDING, CVA AND HIATAL HERNIA . BREATHING TX GIVEN . CONSULTATION WITH ID, NEUROLOGIST AND PULMONARY . DC PLAN TO GO BACK TO [facility] WHEN STABLE TO BE DISCHARGED. Addendum: 06/19/19 at 1527 by Susi Jacobson CM DC PLANNING PULMO SEEN PT AND CONTINUE IV ABX WAITING FOR SPUTUM AND BLOOD CULTURE AND CONTINUE STEROID AND WEAN TOLERABLE . NEURO DR PB QUIROS PT ,POSS DC PER MD TO GO BACK TO [email or web address].CM TO FOLLOW. Addendum: 06/21/19 at 1243 by Susi Jcaobson CM DC PLANNING: PER DR DENISA GILBERT TP GO TO SNF FOR IV ABX . [facility]ED TO [facility], [facility] , [facility] , [facility] . CM TO FOLLOW
[2019-06-18] MEDS: methylPREDNISolone SS 40 MG/ML VIAL IVP SCH ×2 (13:21→20:34)
[2019-06-18] MEDS: AZITHROMYCIN 500 MG in DEXTROSE 5% 250 ML IV SCH (13:26)
--- NOTE | 2019-06-18 13:30 | NUR ---
ADMINISTERED MEDS. PATIENT TOLERATED WELL. NO SIGNS OF DISTRESS. WILL CONTINUE TO MONITOR
--- NOTE | 2019-06-18 14:41 | NUR ---
PATIENT IS SLEEPING. NO SIGNS OF DISTRESS. RT AT BEDSIDE
--- NOTE | 2019-06-18 14:44 | NUR ---
06/18/19 RD INITIAL ASSESSMENT COMPLETED PLEASE REFER TO NUTRITION ASSESSMENT UNDER CARE ACTIVITY FOR ESTIMATED NUTRITIONAL NEEDS. 1. CONTINUE NPO MEDICALLY APPROPRIATE 2. IF/WHEN MEDICALLY APPROPRIATE TO BEGIN NUTRITION ADVANCE TOLERATED TO GLUCERNA @ 70ML/HR WITH FWF OF 150ML Q4H -THIS WILL PROVIDE 2016KCAL AND 100G PROTEIN 3. RD TO FOLLOW-UP 2-3 DAYS, HIGH RISK JUAN CARLOS SOTO RD
[2019-06-18 16:00] VITALS: BP 145/83
[2019-06-18] MEDS: MONTELUKAST SODIUM 10 MG TAB GT SCH (16:45)
--- NOTE | 2019-06-18 16:52 | NUR ---
CHECKED GTUBE PLACEMENT USING SWOOSH. SWOOSH HEARD. 20 ML RESIDUAL PLACED BACK TO PATIENT. CRUSHED AND ADMINISTERED MEDS, FLUSHED BEFORE AND AFTER. PATIENT TOLERATED WELL. WILL CONTINUE TO MONITOR
--- NOTE | 2019-06-18 18:07 | NUR ---
PATIENT IN BED. NO DISTRESS
--- NOTE | 2019-06-18 19:05 | NUR ---
GAVE BEDSIDE REPORT TO SUCTION OPERATOR NURSE. ENDORSED PATIENT IN STABLE CONDITION
--- NOTE | 2019-06-18 19:30 | NUR ---
RECEIVED FROM AM RN IN BED. MENTALLY CHALLENGED MALE PT. NONE VERBAL. CONTRACTED EXTREMITIES. NEEDS WILL BE ANTICIPATED AND WILL BE MET. TOTAL CARE. TELEMETRY MONITORING. DX. OF RESPIRATORY DISTRESS. WILL BE TURNED TO E SIDES Q 2H. GT FEEDING TO START ORDERED. IVF SITE INTACT AND NO INFILTRATION.
[2019-06-18 20:00] VITALS: BP 110/64
--- NOTE | 2019-06-18 20:00 | NUR ---
PT. TURNED BY SHIPS EQUIPMENT ENGINEER WITH PILLOW SUPPORT TO PRESSURE AREAS. NEEDS ANTICIPATED AND WILL BE MET. TOTAL CARE. TELEMETRY MONITORING.
--- NOTE | 2019-06-18 22:39 | NUR ---
PT. TURNED TO OTHER SIDE BY CNAS. PILLOW SUPPORT TO PRESSURE AREAS. NEEDS ANTICIPATED AND MET. TOTAL CARE . HOB UP 25 DEGREES FOR ASPIRATION PRECAUTIONS. BED ALARM ON.
[2019-06-19] VITALS: BP 104/61
--- NOTE | 2019-06-19 00:10 | NUR ---
PT. SLEEPING WELL. NO RESTLESSNESS. WOKE UP EASILY WHEN VITAL SIGNS TAKEN. NONE VERBAL. TURNED BY CNAS TO HIS RIGHT SIDE. PILLOW SUPPORT TO PRESSURE AREAS. BED ALARM ON. NEEDS WILL BE ANTICIPATED AND WILL BE MET. TELEMETRY MONITORING. HOB UP FOR ASPIRATION PRECAUTIONS AND WITH PADDED SIDERAILS FOR SEIZURE PRECAUTIONS.
[2019-06-19] MEDS: DEXT 5% / NACL 0.45% 1,000 ML IV SCH ×3 (01:16→22:29)
--- NOTE | 2019-06-19 02:32 | NUR ---
NO RESTLESSNESS. SLEEPING WELL. TELEMETRY MONITORING. GT RESIDUAL 50 ML. NO VOMITING NOTED THIS SHIFT. NO SEIZURE NOTED.
[2019-06-19] MEDS: ALBUTEROL 0.083% 2.5 MG/3 ML NEBU INH SCH ×6 (02:54→23:00)
--- NOTE | 2019-06-19 04:24 | NUR ---
PT. TURNED TO SIDES BY ME AND ANOTHER NURSE. PILLOW SUPPORT TO PRESSURE AREAS. RESPIRATORY THERAPIST IN HERE AND BREATHING TREATMENTS PROVIDED. SUCTIONED BY RT. AFEBRILE. NONE VERBAL. TELEMETRY MONITORING. NO S/S OF ASPIRATION NOTED. NO SEIZURES THIS SHIFT .
[2019-06-19 04:26] VITALS: BP 131/81
[2019-06-19] MEDS: methylPREDNISolone SS 40 MG/ML VIAL IVP SCH ×3 (05:28→22:25)
[2019-06-19] MEDS: LEVOTHYROXINE 0.05 MG TAB GT SCH (05:28)
--- NOTE | 2019-06-19 06:06 | NUR ---
PT. NEEDS ANTICIPATED AND MET. TOTAL CARE. VERY AWAKE AT THIS FOR AM PERSONAL HYGIENE. MUMBLING INCOMPREHENSIBLE SOUNDS. HAPPY THAT HE IS BEING TAKEN CARE OF AT THIS TIME. VERY MUCH AWAKE. HOB UP AT ALL TIMES FOR ASPIRATION PRECAUTIONS. NO SEIZURES NOTED THIS SHIFT. WILL ENDORSE TO AM RN FOR CONTINUITY OF CARE.
[2019-06-19 07:10] LABS: BASOPHILS % (AUTO) 0.1 % (0.0-2.0); EOSINOPHILS % (AUTO) 0.3 % (0.0-4.0); HEMOGLOBIN 11.1 g/dL (12.0-18.0); LYMPHOCYTES # (AUTO) 0.8 K/uL (2.0-11.5); LYMPHOCYTES % (AUTO) 15.7 % (20.5-51.1); MEAN CORPUSCULAR HEMOGLOBIN 29 pg (27-31); MEAN CORPUSCULAR HGB CONC 34 g/dL (33-37); MEAN CORPUSCULAR VOLUME 86.5 fL (80-94); MONOCYTES # (AUTO) 0.5 K/uL (0.8-1.0); MONOCYTES % (AUTO) 9.1 % (1.7-9.3); NEUTROPHILS % (AUTO) 74.8 % (42.2-75.2); PLATELET COUNT (AUTO) 201 K/uL (140-450); RED BLOOD CELL COUNT(AUTO) 3.82 MIL/uL (4.20-6.10); RED CELL DISTRIBUTION WIDTH 13.3 % (11.6-13.7); WHITE BLOOD COUNT (AUTO) 5.3 K/uL (4.8-10.8)
[2019-06-19 07:13] LABS: ANION GAP 10.5 (8-16); CARBON DIOXIDE 29.6 mmol/L (21-32); CREATININE 0.4 mg/dL (0.7-1.3); POTASSIUM 4.1 mmol/L (3.5-5.1)
--- NOTE | 2019-06-19 07:25 | NUR ---
Received report from table games shift manager nurse. Pt is in bed in stable condition. No distress noted. Call light in reach.
[2019-06-19] MEDS: ALBUTEROL SULFATE/IPRATROPIU 3 ML SOL IH PRN ×2 (07:44→15:28)
[2019-06-19] MEDS: BUDESONIDE 0.5 MG/2 ML NEBU INH SCH ×2 (07:45→20:01)
[2019-06-19 08:00] VITALS: BP 137/84
[2019-06-19] MEDS: METOCLOPRAMIDE 10 MG/10 ML SYRP UDC GT SCH ×4 (08:31→22:25)
[2019-06-19] MEDS: LACTULOSE 20 GM/30 ML UDC GT SCH (08:31)
[2019-06-19] MEDS: POTASSIUM CHLORIDE 20% 40 MEQ/15 ML UDC GT SCH (08:32)
[2019-06-19] MEDS: POLYETHYLENE GLYCOL 17 GM/PKT GT SCH (08:32)
[2019-06-19] MEDS: LORATADINE 10 MG TAB GT SCH (08:33)
[2019-06-19] MEDS: risperiDONE 1 MG TAB GT SCH ×2 (08:33→22:26)
[2019-06-19] MEDS: BACLOFEN 10 MG TAB GT SCH ×3 (08:33→17:58)
[2019-06-19] MEDS: CYCLOBENZAPRINE 10 MG TAB GT SCH ×3 (08:34→17:58)
[2019-06-19] MEDS: LACTOBACILLUS RHAMNOSUS GG 1 EACH CAP PO SCH (08:34)
[2019-06-19] MEDS: levETIRAcetam 100 MG/ML ORASYR GT SCH ×2 (09:48→22:26)
[2019-06-19] MEDS: SODIUM CHLORIDE 1 GM TAB GT SCH ×3 (09:49→17:59)
--- NOTE | 2019-06-19 10:00 | NUR ---
Pt is in bed in stable condition. Call light in reach.
[2019-06-19 12:00] VITALS: BP 151/92
--- NOTE | 2019-06-19 13:00 | NUR ---
Pt is in bed in stable condition. Call light in reach.
[2019-06-19] MEDS: LORazepam 2 MG/ML VIAL IVP PRN (13:26)
[2019-06-19] MEDS: AZITHROMYCIN 500 MG in DEXTROSE 5% 250 ML IV SCH (14:21)
--- NOTE | 2019-06-19 15:24 | NUR ---
Pt is in bed in stable condition. Call light in reach.
[2019-06-19 16:00] VITALS: BP 133/93
--- NOTE | 2019-06-19 16:00 | NUR ---
G tube residual noted at 200 ml. Held G tube feeding. Pt is not in distress. Call light in reach.
--- NOTE | 2019-06-19 17:30 | NUR ---
Shift report given to car shifter nurse. Pt is in stable condition. Call light in reach.
[2019-06-19] MEDS: MONTELUKAST SODIUM 10 MG TAB GT SCH (17:58)
--- NOTE | 2019-06-19 19:30 | NUR ---
RECEIVED FROM AM RN IN BED AWAKE . MENTALLY CHALLENGED. NEEDS WILL BE ANTICIPATED AND WILL BE MET. TOTAL CARE. WILL BE TURNED Q 2H. HOB UP 30 DEGREES FOR ASPIRATION PRECAUTIONS. ON GT FEEDING. NO SOB. WITH BREATHING TREATMENTS. ON AT 2LPM/NC.
[2019-06-19 20:00] VITALS: BP 136/82
--- NOTE | 2019-06-19 22:54 | NUR ---
ENDORSED TO THE NEXT RN FOR CONTINUITY OF CARE. TOTAL CARE. AWAKE . NONE VERBAL. TURNED TO SIDES Q 2H.
--- NOTE | 2019-06-19 22:55 | NUR ---
RECEIVED BEDSIDE REPORT FROM TORRES. PT HAS MENTAL RETARDATION. IS APHASIC. OPEN EYES TO VOICE. ON NC 2L O2. RESPIRATIONS ARE EQUAL AND UNLABORED. SKIN INTACT PER RN. PT IS INCONTINENT. IV ON L AND RIGHT WRIST 20G. IVF ON R WRIST IVF PER ORDERS. PT WITH GTUBE FEEDING. GLUCERNA 1.2 70M/H FWF 150/Q4H. PER RN FEEDING WAS HELD DURING DAY SHIFT D/T >200 RESIDUAL. PT CURRENTLY WITH 40CC. PT ON FALL AND SZ PRECAUTION. POC DISCUSSED WITH PT. WILL ROUND FREQUENTLY.
[2019-06-20] VITALS: BP 130/75
--- NOTE | 2019-06-20 | NUR ---
VITAL SIGNS ARE WITHIN NORMAL LIMITS. FLACC 0. GTUBE FEEDING STILL INFUSING PER ORDERS. ALL SAFETY MEASURES ARE IN PLACE. WILL CONTINUE TO MONITOR.
--- NOTE | 2019-06-20 01:53 | NUR ---
PATIENT IS SLEEPING COMFORTABLY IN BED WITH EYES CLOSED. CHEST RISE AND FALL. NO RESPIRATORY DISTRESS. SAFETY MEASURES ARE IN PLACE.
[2019-06-20] MEDS: ALBUTEROL 0.083% 2.5 MG/3 ML NEBU INH SCH ×6 (03:00→19:39)
--- NOTE | 2019-06-20 03:00 | NUR ---
PATIENT NOTED USING ACCESSORY MUSCLES FOR BREATHING AND VANESA WHEEZING. PAGED RT. VSS: 102/78 HR 91 SAT 100% ON 3L RR 20. PT AGITATED MOVING IN BED AND ATTEMPTING TO PUT FINGER IN MOUTH. STOPPED FEEDING APPLIED SOCKS ON HANDS AND WILL ADMINISTER PRN ATIVAN. SAFETY MEASURES ARE IN PLACE. WILL CONTINUE TO MONITOR.
[2019-06-20] MEDS: LORazepam 2 MG/ML VIAL IVP PRN ×3 (03:14→12:39)
[2019-06-20 04:00] VITALS: BP 102/78
--- NOTE | 2019-06-20 04:14 | NUR ---
VITAL SIGNS ARE WITHIN NORMAL LIMITS. PT IS AWAKE AND RESTING IN BED. SAFETY MEASURES ARE IN PLACE.
[2019-06-20] MEDS: LEVOTHYROXINE 0.05 MG TAB GT SCH (05:36)
[2019-06-20] MEDS: methylPREDNISolone SS 40 MG/ML VIAL IVP SCH ×3 (05:36→20:52)
--- NOTE | 2019-06-20 05:36 | NUR ---
GI MEDICATIONS GIVEN VIA G TUBE. PT WITH 50CC RESIDUAL. FEEDING INFUSING PER ORDERS. WILL CONTINUE TO MONITOR
--- NOTE | 2019-06-20 07:13 | NUR ---
GAVE BEDSIDE REPORT TO DAY RN. PT ENDORSED IN STABLE CONDITION.
[2019-06-20] MEDS: DEXT 5% / NACL 0.45% 1,000 ML IV SCH ×2 (07:16→18:09)
[2019-06-20] MEDS: BUDESONIDE 0.5 MG/2 ML NEBU INH SCH ×3 (07:27→19:40)
--- NOTE | 2019-06-20 07:27 | NUR ---
SATURATION 98% ON SUPPLEMENTAL OXYGEN AT 3 LPM VIA NC POST HHN THERAPY TITRATED FIO2 TO 2 LPM CRISTAL/GENIA NOTIFIED
--- NOTE | 2019-06-20 07:29 | NUR ---
RECEIVED BEDSIDE REPORT FROM PM RN PT APPEARS STABLE AND IN NO APPARENT DISTRESS. SEIZURE PRECAUTIONS ARE IN PLACE. IV INTACT. GTUBE INFUSING HEAD OF BED ELEVATED ABOVE 30 DEGREES. WILL CONTINUE TO MONITOR
[2019-06-20 08:05] VITALS: BP 155/91
--- NOTE | 2019-06-20 08:12 | NUR ---
ADMINISTERED 2MG ATIVAN IVP PT APPEARS AGITATED AND IS MOANING.
[2019-06-20] MEDS: LACTOBACILLUS RHAMNOSUS GG 1 EACH CAP PO SCH (08:13)
[2019-06-20] MEDS: risperiDONE 1 MG TAB GT SCH ×2 (08:14→20:55)
[2019-06-20] MEDS: SODIUM CHLORIDE 1 GM TAB GT SCH ×3 (08:14→18:08)
[2019-06-20] MEDS: LORATADINE 10 MG TAB GT SCH (08:14)
[2019-06-20] MEDS: POLYETHYLENE GLYCOL 17 GM/PKT GT SCH (08:15)
[2019-06-20] MEDS: METOCLOPRAMIDE 10 MG/10 ML SYRP UDC GT SCH ×4 (08:15→20:54)
[2019-06-20] MEDS: CYCLOBENZAPRINE 10 MG TAB GT SCH ×3 (08:15→18:08)
[2019-06-20] MEDS: POTASSIUM CHLORIDE 20% 40 MEQ/15 ML UDC GT SCH (08:15)
[2019-06-20] MEDS: LACTULOSE 20 GM/30 ML UDC GT SCH (08:15)
[2019-06-20] MEDS: BACLOFEN 10 MG TAB GT SCH ×3 (08:15→18:08)
[2019-06-20] MEDS: levETIRAcetam 100 MG/ML ORASYR GT SCH ×2 (08:16→20:55)
--- NOTE | 2019-06-20 08:42 | NUR ---
ATIVAN REASSESSMENT PT APPEARS RELAXED AND CALM PT APPEARS STABLE AND IN NO APPARENT DISTRESS. ALL SAFETY MEASURES ARE IN PLACE WILL CONTINUE TO MONITOR
--- NOTE | 2019-06-20 08:52 | NUR ---
06/20/19 RD FOLLOW UP COMPLETED PLEASE REFER TO NUTRITION ASSESSMENT UNDER CARE ACTIVITY FOR ESTIMATED NUTRITIONAL NEEDS. 1. CONTINUE GLUCERNA @ 70ML/HR WITH FWF OF 150ML Q4H. REGIMEN WILL PROVIDE 2016KCAL AND 100G PROTEIN. CONTINUE GASTRIC MOTILITY MEDICATION TO IMPROVE GRV NEEDED AND ORDERED BY DOCTOR. 2. RD TO FOLLOW-UP 2-3 DAYS, HIGH RISK GOLD SANABRIA RD
--- NOTE | 2019-06-20 10:34 | NUR ---
FREQUENT ROUNDING ON PT PT APPEARS STABLE AND IN NO APPARENT DISTRESS. ALL SAFETY MEASURES ARE IN PLACE WILL CONTINUE TO MONITOR.
--- NOTE | 2019-06-20 11:09 | NUR ---
NASOTRACHEAL SUCTION USING STERILE TECHNIQUE PLUS OROPHARYNX SUCTIONF FOR LARGE THICK YELLOW SECRETIONS PLUS ESPINOSA FEEDING CRISTAL/GENIA NOTIFIED FEEDING STOPPED AT THIS TIME HOB AT 35 DEGREES
[2019-06-20 12:05] VITALS: BP 150/90
--- NOTE | 2019-06-20 12:29 | NUR ---
PAGED DR. DENISA LOW TO OBTAIN CONSENT FOR PICC LINE PLACEMENT THAT HE ORDERED FOR THIS PATIENT
--- NOTE | 2019-06-20 13:46 | NUR ---
FREQUENT ROUNDING ON PT PT APPEARS STABLE AND IN NO APPARENT DISTRESS. ALL SAFETY MEASURES ARE IN PLACE WILL CONTINUE TO MONITOR.
[2019-06-20] MEDS: ALBUTEROL SULFATE/IPRATROPIU 3 ML SOL IH PRN ×2 (13:59→19:39)
[2019-06-20] MEDS: AZITHROMYCIN 500 MG in DEXTROSE 5% 250 ML IV SCH (14:46)
--- NOTE | 2019-06-20 14:59 | NUR ---
SPOKE WITH NICKI RN [phone] ABOUT OBTAINING CONSENT FOR PICC LINE PLACEMENT SHE STATED THAT THE PATIENT DOESNT HAVE A CONSERVATOR AND THAT HE WOULD BE [facility] WOULD HAVE TO APPROVE THE PLACEMENT WHICH THE CENTER IS CLOSED UNTIL MONDAY DUE TO THE HOLIDAY. NICKI CORMIER STATED THAT THE ONLY OTHER OPTION WOULD BE TO OBTAIN A 2 PHYSICIAN CONSENT. SPOKE WITH THE MULE OPERATOR DELL AND SHE STATED THAT ONCE WE GET IN CONTACT WITH KRISTEN CRAWLEY WE WILL HAVE ANOTHER CONSULTING PHYSICIAN SIGN CONSENT WELL
--- NOTE | 2019-06-20 15:25 | NUR ---
CALLED DR. DENISA PETERSON, STATED THAT PICC LINE CAN BE DONE TOMORROW AND HE WILL SIGN THE CONSENT TOMORROW WITH OTHER CONSULTING PHYSICIAN. PER KRISTEN SHELDON, PICC LINE IS NEEDED FOR PT WHEN HE GOES TO SNF FOR IV ABX. VIGNESH ASSIGNED MADE AWARE.
--- NOTE | 2019-06-20 15:43 | NUR ---
FREQUENT ROUNDING ON PT PT APPEARS STABLE AND IN NO APPARENT DISTRESS. ALL SAFETY MEASURES ARE IN PLACE WILL CONTINUE TO MONITOR.
[2019-06-20 16:00] VITALS: BP 124/64
--- NOTE | 2019-06-20 17:23 | NUR ---
FREQUENT ROUNDING ON PT PT APPEARS STABLE AND IN NO APPARENT DISTRESS. ALL SAFETY MEASURES ARE IN PLACE WILL CONTINUE TO MONITOR.
[2019-06-20] MEDS: MONTELUKAST SODIUM 10 MG TAB GT SCH (18:09)
--- NOTE | 2019-06-20 19:05 | NUR ---
RECEIVED BEDSIDE REPORT FROM AM SHIFT NURSE. PATIENT LYING IN BED. VISIBLE CHEST RISE AND FALL NOTED. ON O2 VIA NASAL CANNULA 3LPM. IV ACCESS ON LEFT HAND 20 GAUGE, INFUSING WELL. PT ON FEEDING VIA GTUBE, PATENT AND INTACT. ON TELE MONITORING. INITIAL ASSESSMENT DONE. CALL LIGHT WITHIN PATIENT REACH. WILL CONTINUE TO MONITOR PATIENT.
--- NOTE | 2019-06-20 20:07 | NUR ---
SPOKE WITH DR. CRAWLEY FOR NEW ORDERS TO PLACE PATIENT ON BIPAP PER RT REQUEST. IVF RATE TO BE DECREASED TO 50ML PER HOUR AND INCREASE THE DOSE OF SOLU-MEDROL IVP FROM 20MG TO 40MG PER RT REQUEST. ORDERS MADE AND CARRIED OUT.
[2019-06-20 20:20] VITALS: BP 139/97
--- NOTE | 2019-06-20 20:24 | NUR ---
2019 placed patient on bipap per dr santizo. settings of bipap12 epap6 rr 14 and fio2 40% patient has shortness of breath and shallow breathing. patient wheezing bilat. hhntx given.
[2019-06-20] MEDS ORDERED: CLINDAMYCIN 600 MG/4 ML VIAL ONE (20:36)
[2019-06-20] MEDS: CLINDAMYCIN 600 MG in DEXTROSE 5% 50 ML IV SCH (20:50)
--- NOTE | 2019-06-20 22:20 | NUR ---
ROUNDS DONE AT THIS TIME. PATIENT ON BIPAP, TOLERATING WELL. WILL CONTINUE TO MONITOR PATIENT.
--- NOTE | 2019-06-20 23:30 | NUR ---
VITAL SIGNS TAKEN AT THIS TIME. PT ON BIPAP, TOLERATING WELL. WILL CONTINUE TO MONITOR PATIENT.
[2019-06-21] VITALS (7 sets, daily range): BP systolic 103–126; BP diastolic 66–90
--- NOTE | 2019-06-21 02:44 | NUR ---
ROUNDS DONE AT THIS TIME. PT ON BIPAP, TOLERATING WELL. CALL LIGHT WITHIN PATIENT REACH. WILL CONTINUE TO MONITOR PATIENT.
[2019-06-21] MEDS: ALBUTEROL 0.083% 2.5 MG/3 ML NEBU INH SCH ×6 (03:24→23:13)
--- NOTE | 2019-06-21 03:43 | NUR ---
LOWERED FIO2 TO 30% ON BIPAP. SATS 98%
[2019-06-21] MEDS ORDERED: CLINDAMYCIN 600 MG/4 ML VIAL ONE ×2 (04:49→20:14)
[2019-06-21] MEDS: methylPREDNISolone SS 40 MG/ML VIAL IVP SCH ×3 (04:55→20:20)
[2019-06-21] MEDS: CLINDAMYCIN 600 MG in DEXTROSE 5% 50 ML IV SCH ×3 (04:56→20:18)
[2019-06-21] MEDS: LEVOTHYROXINE 0.05 MG TAB GT SCH (06:24)
--- NOTE | 2019-06-21 06:32 | NUR ---
PT IN STABLE CONDITION. ON BIPAP, TOLERATING WELL. WILL ENDORSE TO AM SHIFT NURSE FOR CONTINUITY OF CARE.
[2019-06-21 06:42] LABS: BASOPHILS % (AUTO) 0.3 % (0.0-2.0); EOSINOPHILS % (AUTO) 0.1 % (0.0-4.0); HEMATOCRIT 31.9 % (36-52); HEMOGLOBIN 10.6 g/dL (12.0-18.0); LYMPHOCYTES # (AUTO) 1.2 K/uL (2.0-11.5); LYMPHOCYTES % (AUTO) 10.6 % (20.5-51.1); MEAN CORPUSCULAR HEMOGLOBIN 29 pg (27-31); MEAN CORPUSCULAR HGB CONC 33 g/dL (33-37); MEAN CORPUSCULAR VOLUME 86.3 fL (80-94); MONOCYTES # (AUTO) 0.6 K/uL (0.8-1.0); MONOCYTES % (AUTO) 4.8 % (1.7-9.3); NEUTROPHILS # (AUTO) 9.9 K/uL (1.8-7.7); NEUTROPHILS % (AUTO) 84.2 % (42.2-75.2); PLATELET COUNT (AUTO) 227 K/uL (140-450); RED CELL DISTRIBUTION WIDTH 13.7 % (11.6-13.7); WHITE BLOOD COUNT (AUTO) 11.7 K/uL (4.8-10.8)
[2019-06-21 06:48] LABS: ALBUMIN 3.1 g/dL (3.4-5.0); ANION GAP 10.9 (8-16); CARBON DIOXIDE 32.3 mmol/L (21-32); CREATININE 0.5 mg/dL (0.7-1.3); POTASSIUM 4.2 mmol/L (3.5-5.1); TOTAL BILIRUBIN 0.3 mg/dL (0.0-1.0)
--- NOTE | 2019-06-21 07:20 | NUR ---
RECEIVED BEDSIDE REPORT FROM HOSPITAL INSURANCE REPRESENTATIVE NURSE FOR CONTINUITY OF CARE. PATIENT AWAKE AND RESTING ON BED AT THIS TIME. RT ROSA IS BY BEDSIDE. PATIENT IS AAOX1. RESPIRATION EVEN AND UNLABORED ON BIPAP, SPO2 AT 95% AT THIS TIME. FLACC 0. NO SIGNS OF DISTRESS NOTED. IV ON L WRIST 20G, CLEAN AND INTACT, INFUSING PER MD ORDER. G-TUBE IN PLACE AND RUNNING GLUCERNA 1.2. SKIN CLEAN AND DRY. PATIENT IS INCONTINENT. DISCUSSED PLAN OF CARE WITH PATIENT AND REINFORCEMENT NEEDED DUE TO PATIENT'S MENTALITY. SAFETY MEASURES IN PLACE. SEIZURE PRECAUTION IN PLACE, BOTH SIDE RAILS PADDED. FALL RISK PRECAUTION IN PLACE AND BED ALARM ACTIVATED. BED IN LOW POSITION AND CALL LIGHT WITHIN REACH. TELE MONITOR ATTACHED.
--- NOTE | 2019-06-21 09:25 | NUR ---
RECEIVED A CALL FROM PICC LINE ROSARIO CORMIER. INFORMED ROSARIO CORMIER THAT AWAITING FOR PHYSICIAN DR DENISA Kamara TO COMPLETE CONSENT FOR PICC LINE. ROSARIO WAS AWARE AND PROVIDED A CALL BACK # [phone]. WILL NOTIFY ROSARIO CORMIER ONCE CONSENT IS COMPLETED.
--- NOTE | 2019-06-21 09:25 | NUR ---
PT TAKEN OFF OF BIPAP BY REQUEST OF PHYSICIAN. PHYSICIAN STATES TO MONITOR SPO2/WOB AND IF PT SPO2 DECREASES APPLY HIGH FLOW. WILL CONTINUE TO MONITOR.
--- NOTE | 2019-06-21 09:35 | NUR ---
ABNORMAL PSYCHOLOGY TEACHER IS PROVIDING HYGIENE CARE AND REPOSITIONING PATIENT, PATIENT TOLERATED WELL. NO SIGNS OF DISTRESS NOTED. SAFETY MEASURES IN PLACE. TELE MONITOR ATTACHED.
[2019-06-21] MEDS: LACTULOSE 20 GM/30 ML UDC GT SCH (09:44)
[2019-06-21] MEDS: POTASSIUM CHLORIDE 20% 40 MEQ/15 ML UDC GT SCH (09:44)
[2019-06-21] MEDS: levETIRAcetam 100 MG/ML ORASYR GT SCH ×2 (09:45→20:17)
[2019-06-21] MEDS: METOCLOPRAMIDE 10 MG/10 ML SYRP UDC GT SCH ×4 (09:45→20:18)
[2019-06-21] MEDS: POLYETHYLENE GLYCOL 17 GM/PKT GT SCH (09:45)
[2019-06-21] MEDS: BACLOFEN 10 MG TAB GT SCH ×3 (09:46→17:41)
[2019-06-21] MEDS: LORATADINE 10 MG TAB GT SCH (09:46)
[2019-06-21] MEDS: risperiDONE 1 MG TAB GT SCH ×2 (09:46→20:20)
[2019-06-21] MEDS: LACTOBACILLUS RHAMNOSUS GG 1 EACH CAP PO SCH (09:46)
[2019-06-21] MEDS: CYCLOBENZAPRINE 10 MG TAB GT SCH ×3 (09:46→17:41)
[2019-06-21] MEDS: SODIUM CHLORIDE 1 GM TAB GT SCH ×3 (09:47→17:41)
[2019-06-21] MEDS: DEXT 5% / NACL 0.45% 1,000 ML IV SCH (09:49)
--- NOTE | 2019-06-21 09:49 | NUR ---
CHECKED G-TUBE RESIDUAL AND RECEIVED < 5 ML, PATIENT TOLERATED WELL. ADMINISTERED MEDS VIA G-TUBE, FLUSHED BEFORE AND AFTER MEDS ADMINISTERED, MEDS EDUCATION PROVIDED AND REINFORCEMENT NEEDED. PATIENT IS RESTING ON BED AT THIS TIME. RESPIRATION EVEN AND UNLABORED ON 3 LPM VIA NC. NO SIGNS OF DISTRESS NOTED. TELE MONITOR ATTACHED. SAFETY MEASURES IN PLACE. BED IN LOW POSITION, HOB ELEVATED TO 30 DEGREE, AND CALL LIGHT WITHIN REACH. FALL RISK PROTOCOL AND SEIZURE PROTOCOL IN PLACE.
--- NOTE | 2019-06-21 11:50 | NUR ---
PATIENT IS RESTING ON BED AT THIS TIME. EYES OPEN TO VOICE. RESPIRATION EVEN AND UNLABORED ON 3LPM VIA NC. FLACC 0. NO SIGNS OF DISTRESS NOTED. G-TUBE FEEDING IS RUNNING AT 70 ML/HR. TELE MONITOR ATTACHED. SAFETY MEASURES IN PLACE. BED IN LOW POSITION AND CALL LIGHT WITHIN REACH. FALL RISK PROTOCOL IN PLACE AND BED ALARM ACTIVATED.
--- NOTE | 2019-06-21 12:31 | NUR ---
OBTAINED DR DENISA Kamara CONSENT SIGNED FOR PICC LINE. NOTIFIED PICC LINE ROSARIO CORMIER. [facility] WILL [facility] APPROXIMATELY 3 HOURS TO ARRIVE [facility].
--- NOTE | 2019-06-21 13:00 | NUR ---
ADMINISTERED SCHEDULED MEDS VIA G-TUBE, FLUSHED BEFORE AND AFTER MEDS ADMINISTERED, MEDS EDUCATION PROVIDED AND REINFORCEMENT NEEDED. PATIENT IS RESTING ON BED AT THIS TIME. RESPIRATION EVEN AND UNLABORED ON 3 LPM VIA NC. NO SIGNS OF DISTRESS NOTED. TELE MONITOR ATTACHED. SAFETY MEASURES IN PLACE. BED IN LOW POSITION, HOB ELEVATED, AND CALL LIGHT WITHIN REACH. FALL RISK PROTOCOL AND SEIZURE PROTOCOL IN PLACE.
[2019-06-21] MEDS: AZITHROMYCIN 500 MG in DEXTROSE 5% 250 ML IV SCH (15:22)
--- NOTE | 2019-06-21 15:22 | NUR ---
ADMINISTERED MED PER MD ORDER VIA IVPB, MED EDU PROVIDED TO PATIENT AND REINFORCEMENT NEEDED. PATIENT IS GETTING A BREATHING TREATMENT. NO SIGNS OF DISTRESS NOTED. SAFETY MEASURES IN PLACE. BED IN LOW POSITION AND CALL LIGHT WITHIN REACH. TELE MONITOR ATTACHED. FALL RISK PROTOCOL AND SEIZURES PROTOCOL IN PLACE.
--- NOTE | 2019-06-21 16:15 | NUR ---
DC PLANNING: RECEIVED A CALL FROM [facility] REFUSED TO TAKE PATIENT. [facility] NO BED AVAILABLE . NOTIFIED DR CRAWLEY FOR THE HARD PLACEMENT FOR SNF . DC PLAN IF CHANGE IT WITH PO ABX PT ABLE [facility] GO [facility]
[2019-06-21] MEDS: MONTELUKAST SODIUM 10 MG TAB GT SCH (17:41)
--- NOTE | 2019-06-21 17:59 | NUR ---
FOLLOWED UP WITH PICC LINE ROSARIO CORMIER [phone] FOR PICC LINE PLACEMENT. CALLED 2X NO ANSWER AND LEFT A MESSAGE WITH CALL BACK NUMBER.
--- NOTE | 2019-06-21 18:07 | NUR ---
RECEIVED A CALL BACK FROM PICC LINE ROSARIO CORMIER THAT HE IS RUNNING LATE BUT HE WILL BE HERE. INFORMED ROSARIO THAT SUPPLIES WILL BE PREPARED ONCE HE ARRIVED.
--- NOTE | 2019-06-21 18:39 | NUR ---
PATIENT IS AWAKE AND RESTING ON BED AT THIS TIME. FLACC 0. RESPIRATION EVEN AND UNLABORED ON 3LPM VIA NC SPO2 AT 96%. NO SIGNS OF DISTRESS NOTED. TELE MONITOR ATTACHED. SAFETY MEASURES IN PLACE.
--- NOTE | 2019-06-21 19:10 | NUR ---
ENDORSED PATIENT AT BEDSIDE TO INDUSTRIAL DESIGNER NURSE FOR CONTINUITY OF CARE. PATIENT AWAKE AND RESTING ON BED AT THIS TIME. RESPIRATION EVEN AND UNLABORED ON RA, SPO2 AT 96%. NO SIGNS OF DISTRESS NOTED. PATIENT IS IN STABLE CONDITION. TELE MONITOR ATTACHED. SAFETY MEASURES IN PLACE.
--- NOTE | 2019-06-21 19:11 | NUR ---
RECEIVED BEDSIDE REPORT FROM AM SHIFT NURSE. PATIENT IS LYING IN BED AWAKE. VISIBLE CHEST RISE AND FALL NOTED. NO SOB OR DISTRESS. PATIENT IS ON O2 VIA NASAL CANNULA AT 3LPM. IV ACCESS ON LEFT WRIST 20 GAUGE, PATENT AND INTACT. GTUBE IN PLACE, PATENT AND INTACT, INFUSING FEEDING WELL. INITIAL ASSESSMENT DONE. BED IN LOW POSITION. FALL RISK AND ON SEIZURE PRECAUTION. SAFETY MEASURES IN PLACE. BOARD UPDATED. CALL LIGHT WITHIN PATIENT REACH. WILL CONTINUE TO MONITOR PATIENT.
[2019-06-21] MEDS: BUDESONIDE 0.5 MG/2 ML NEBU INH SCH (19:57)
--- NOTE | 2019-06-21 21:40 | NUR ---
CALLED ROSARIO, PICC LINE RN, TO FOLLOW UP ARRIVAL FOR PICC LINE PLACEMENT. HE SAID HE WILL BE ARRIVING AROUND 0 AND TO HAVE ULTRASOUND READY AT THAT TIME.
--- NOTE | 2019-06-21 23:53 | NUR ---
ROSARIO PICC LINE NURSE CALLED AND SAID PICC LINE IS OK AND WE CAN USE IT.
[2019-06-22 00:15] VITALS: BP 103/60
--- NOTE | 2019-06-22 00:15 | NUR ---
VITAL SIGNS TAKEN AT THIS TIME. VISIBLE CHEST RISE AND FALL NOTED. CALL LIGHT WITHIN PATIENT REACH. WILL CONTINUE TO MONITOR PATIENT.
--- NOTE | 2019-06-22 02:11 | NUR ---
ROUNDS DONE AT THIS TIME. VISIBLE CHEST RISE AND FALL NOTED. WILL CONTINUE TO MONITOR PATIENT.
[2019-06-22] MEDS: ALBUTEROL 0.083% 2.5 MG/3 ML NEBU INH SCH ×5 (03:35→18:56)
--- NOTE | 2019-06-22 03:50 | NUR ---
VITAL SIGNS TAKEN AT THIS TIME. NO DISTRESS NOTED. WILL CONTINUE TO MONITOR PATIENT.
[2019-06-22 04:25] VITALS: BP 112/65
[2019-06-22] MEDS: LEVOTHYROXINE 0.05 MG TAB GT SCH (05:44)
[2019-06-22] MEDS: methylPREDNISolone SS 40 MG/ML VIAL IVP SCH ×3 (05:44→20:50)
[2019-06-22] MEDS: CLINDAMYCIN 600 MG in DEXTROSE 5% 50 ML IV SCH ×3 (05:45→20:51)
[2019-06-22] MEDS: DEXT 5% / NACL 0.45% 1,000 ML IV SCH (06:15)
[2019-06-22] MEDS: BUDESONIDE 0.5 MG/2 ML NEBU INH SCH ×2 (06:50→18:56)
--- NOTE | 2019-06-22 06:53 | NUR ---
PATIENT IN STABLE CONDITION. SAFETY MEASURES IN PLACE. CALL LIGHT WITHIN PATIENT REACH. WILL ENDORSE TO AM SHIFT NURSE FOR CONTINUITY OF CARE.
[2019-06-22 07:06] LABS: BASOPHILS % (AUTO) 0.1 % (0.0-2.0); EOSINOPHILS % (AUTO) 0.1 % (0.0-4.0); HEMATOCRIT 31.5 % (36-52); HEMOGLOBIN 10.7 g/dL (12.0-18.0); LYMPHOCYTES # (AUTO) 1.2 K/uL (2.0-11.5); LYMPHOCYTES % (AUTO) 16.4 % (20.5-51.1); MEAN CORPUSCULAR HEMOGLOBIN 29 pg (27-31); MEAN CORPUSCULAR HGB CONC 34 g/dL (33-37); MEAN CORPUSCULAR VOLUME 86.6 fL (80-94); MONOCYTES # (AUTO) 0.5 K/uL (0.8-1.0); MONOCYTES % (AUTO) 6.5 % (1.7-9.3); NEUTROPHILS # (AUTO) 5.4 K/uL (1.8-7.7); NEUTROPHILS % (AUTO) 76.9 % (42.2-75.2); PLATELET COUNT (AUTO) 252 K/uL (140-450); RED BLOOD CELL COUNT(AUTO) 3.64 MIL/uL (4.20-6.10); RED CELL DISTRIBUTION WIDTH 13.9 % (11.6-13.7); WHITE BLOOD COUNT (AUTO) 7.1 K/uL (4.8-10.8)
--- NOTE | 2019-06-22 07:15 | NUR ---
RECEIVED BEDSIDE REPORT FROM DIRECTOR LEARNING NURSE FOR CONTINUITY OF CARE. PATIENT AWAKE AND RESTING ON BED AT THIS TIME. PATIENT IS AAOX1, EYES OPEN TO VOICE. RESPIRATION EVEN AND UNLABORED ON 3LPM VIA NC, SPO2 AT 98% AT THIS TIME. FLACC 0. NO SIGNS OF DISTRESS NOTED. IV ON L WRIST 20G, CLEAN AND INTACT, SL. PICC LINE DOUBLE LUMEN ON MAGNOLIA, CLEAN AND INTACT, INFUSING PER MD ORDER. G-TUBE IN PLACE AND RUNNING GLUCERNA AT 70ML/HR. SKIN CLEAN AND DRY. PATIENT IS INCONTINENT. DISCUSSED PLAN OF CARE WITH PATIENT AND REINFORCEMENT NEEDED DUE TO PATIENT'S MENTALITY. SAFETY MEASURES IN PLACE. SEIZURE PRECAUTION IN PLACE, BOTH SIDE RAILS PADDED. FALL RISK PRECAUTION IN PLACE AND BED ALARM ACTIVATED. BED IN LOW POSITION AND CALL LIGHT WITHIN REACH. TELE MONITOR ATTACHED.
[2019-06-22 07:29] LABS: ALBUMIN 3.1 g/dL (3.4-5.0); ANION GAP 8.2 (8-16); CARBON DIOXIDE 36.9 mmol/L (21-32); CREATININE 0.5 mg/dL (0.7-1.3); POTASSIUM 4.1 mmol/L (3.5-5.1); TOTAL BILIRUBIN 0.2 mg/dL (0.0-1.0)
[2019-06-22 08:00] VITALS: BP 117/75
[2019-06-22] MEDS: LACTULOSE 20 GM/30 ML UDC GT SCH (09:31)
[2019-06-22] MEDS: POTASSIUM CHLORIDE 20% 40 MEQ/15 ML UDC GT SCH (09:32)
[2019-06-22] MEDS ORDERED: levETIRAcetam 100 MG/ML ORASYR ONE (09:37)
[2019-06-22] MEDS: METOCLOPRAMIDE 10 MG/10 ML SYRP UDC GT SCH ×4 (09:37→20:49)
[2019-06-22] MEDS: levETIRAcetam 100 MG/ML ORASYR GT SCH ×2 (09:37→20:49)
[2019-06-22] MEDS: LACTOBACILLUS RHAMNOSUS GG 1 EACH CAP PO SCH (09:38)
[2019-06-22] MEDS: SODIUM CHLORIDE 1 GM TAB GT SCH ×3 (09:38→17:00)
[2019-06-22] MEDS: BACLOFEN 10 MG TAB GT SCH ×3 (09:38→17:00)
[2019-06-22] MEDS: LORATADINE 10 MG TAB GT SCH (09:38)
[2019-06-22] MEDS: CYCLOBENZAPRINE 10 MG TAB GT SCH ×3 (09:38→17:00)
[2019-06-22] MEDS: risperiDONE 1 MG TAB GT SCH ×2 (09:39→20:50)
[2019-06-22] MEDS: POLYETHYLENE GLYCOL 17 GM/PKT GT SCH (09:46)
--- NOTE | 2019-06-22 09:49 | NUR ---
PATIENT LYING IN BED UPON ARRIVAL. RESPIRATIONS EVEN AND UNLABORED WITH NO SOB OR RESPIRATORY DISTRESS. CRUSHED SCHEDULED MEDICATIONS PRESCRIBED PER MD. PRIOR TO ADMINISTRATION, G-TUBE RESIDUAL RESULTED IN 15MLS. FLUSHED G-TUBE PRIOR TO ADMINISTRATION. PATIENT TOLERATED WELL. ADMINISTERED CRUSHED SCHEDULED MEDS VIA G-TUBE. PATIENT TOLERATED WELL. MEDICATION EDUCATION PERFORMED. AFTER ADMINISTRATION OF CRUSHED SCHEDULED MEDS, FLUSHED G-TUBE. PATIENT TOLERATED WELL. NO COMPLAINTS OR CONCERNS AT THIS TIME. FLACC 0. ORAL CARE PERFORMED. PATIENT TOLERATED WELL. SAFETY MEASURES: HOB ELEVATED, BED IN LOWEST POSITION, CALL LIGHT WITHIN REACH, BED ALARM ACTIVATED, TELE MONITOR ATTACHED.
--- NOTE | 2019-06-22 10:40 | NUR ---
ASSISTED HRBP TO CLEAN AND REPOSITIONING PATIENT, PATIENT TOLERATED WELL. USED PILLOWS TO OFF LOADED PRESSURES FROM BACK AND LEGS. SAFETY MEASURES IN PLACE. FALL RISK PROTOCOL IN PLACE AND SEIZURE PRECAUTION IN PLACE. BOTH RAILS PADDED. BED IN LOW POSITION AND CALL LIGHT WITHIN REACH. BED ALARM ACTIVATED.
--- NOTE | 2019-06-22 11:23 | NUR ---
PATIENT IS RESTING ON BED, AROUSABLE TO VOICE. RESPIRATION EVEN AND UNLABORED ON 3LPM VIA NC, SPO2 AT 97% AT THIS TIME. FLACC 0. NO SIGNS OF DISTRESS NOTED. SAFETY MEASURES IN PLACE. FALL RISK PROTOCOL AND SEIZURE PRECAUTION IN PLACE. BED IN LOW POSITIO, HOB ELEVATED, CALL LIGHT WITHIN REACH.
--- NOTE | 2019-06-22 11:57 | NUR ---
(06/22/19) RD FOLLOW UP COMPLETED PLEASE REFER TO NUTRITION PROGRESS NOTE UNDER CARE ACTIVITY FOR ESTIMATED NUTRITION NEEDS. RD RECOMMENDATIONS: 1. CONTINUE ON GLUCERNA 1.2 @ GOAL RATE 70 ML/HR WITH 150 ML FWF Q4H. THIS WILL PROVIDE 2016 TOTAL KCAL AND 101 GM TOTAL PROTEIN WHICH WILL MEET 84% ESTIMATED KCAL AND >100% ESTIMATED PROTEIN NEEDS. 2. RD WILL F/U 2-3 DAYS; HIGH RISK. ADRIANO DUDLEY MS, RDN
[2019-06-22 12:00] VITALS: BP 104/68
--- NOTE | 2019-06-22 12:56 | NUR ---
PRIOR TO MEDICATION ADMINISTRATION, G-TUBE RESIDUAL WAS CHECKED AND RESULTED IN 30ML. G-TUBE FLUSHED WITHOUT COMPLICATION. PATIENT TOLERATED WELL. ADMINISTERED MEDICATION PRESCRIBED PER MD. ONCE MEDICATIONS WERE ADMINISTERED, THE G-TUBE WAS FLUSHED. NO COMPLICATIONS AT THIS TIME. DR. CRAWLEY STOPPED IN TO CHECK ON THE PATIENT. NO SIGNS OF DISTRESS NOTED. SAFETY MEASURES: HOB ELEVATED, CALL LIGHT WITHIN REACH, BED IN LOWEST POSITION, SEIZURE PRECAUTIONS IN PLACE, BED ALARM ACTIVATED, AND TELE MONITOR ATTACHED.
[2019-06-22] MEDS: AZITHROMYCIN 500 MG in DEXTROSE 5% 250 ML IV SCH (14:00)
--- NOTE | 2019-06-22 14:00 | NUR ---
ADMINISTERED MEDICATION PRESCRIBED PER MD. PATIENT TOLERATED WELL. MEDICATION EDUCATION PERFORMED. SAFETY MEASURES IN PLACE: HOB ELEVATED, BED IN LOWEST POSITION, CALL LIGHT WITHIN REACH, SEIZURE PRECAUTIONS IN PLACE, BED ALARM ACTIVATED, TELE MONITOR ATTACHED. WILL CONTINUE TO MONITOR
--- NOTE | 2019-06-22 14:04 | NUR ---
PATIENT IS ASLEEP IN BED. AROUSABLE TO VOICE AND TACTILE STIMULATION. RESPIRATIONS EVEN AND UNLABORED ON 3LPM VIA NC, SPO2 AT 98% AT THIS TIME. FLACC 0. NO SIGNS OF SOB OR DISTRESS NOTED. SAFETY MEASURES IN PLACE: FALL RISK PROTOCOL AND SEIZURE PRECAUTION IN PLACE, BED IN LOWEST POSITION, HOB ELEVATED, BED ALARM ACTIVATED, TELE MONITOR ATTACHED, AND CALL LIGHT WITHIN REACH. FREQUENT CHECKS MADE Addendum: 06/22/19 at 1514 by Lupe Erazo RN DISREGARD NOTE. WRONG ENTRY
--- NOTE | 2019-06-22 15:00 | NUR ---
MOTHER IS HOLDING PATIENT. RESPIRATIONS EVEN AND UNLABORED WITH NO SOB AT THIS TIME. FLACC 0. NO COMMENTS OR CONCERNS AT THIS TIME. FALL RISK PROTOCOL IN PLACE AND CALL LIGHT WITHIN REACH. FREQUENT CHECKS MADE Addendum: 06/22/19 at 1520 by Lupe Erazo RN DISREGARD NOTE. WRONG ENTRY
--- NOTE | 2019-06-22 15:01 | NUR ---
PATIENT IS PEACEFULLY ASLEEP IN BED. AROUSABLE TO VOICE AND TACTILE STIMULATION. RESPIRATIONS EVEN AND UNLABORED WITH NO SOB OR RESPIRATORY DISTRESS AT THIS TIME. ON 3LPM VIA NC STATING AT SPO2 AT 98% AT THIS TIME. NO DESATURATIONS NOTED. FLACC 0. NO SIGNS OF SOB OR DISTRESS NOTED. SAFETY MEASURES IN PLACE: FALL RISK PROTOCOL AND SEIZURE PRECAUTION IN PLACE, BED IN LOWEST POSITION, HOB ELEVATED, BED ALARM ACTIVATED, TELE MONITOR ATTACHED, AND CALL LIGHT WITHIN REACH. FREQUENT CHECKS MADE
[2019-06-22 16:00] VITALS: BP 114/75
[2019-06-22] MEDS: MONTELUKAST SODIUM 10 MG TAB GT SCH (17:00)
--- NOTE | 2019-06-22 17:00 | NUR ---
CHECKED G-TUBE RESIDUAL AND RECEIVED 25 ML. ADMINISTERED SCHEDULED MEDS, FLUSHED BEFORE AND AFTER MEDS ADMINISTERED, MED EDUCATION PROVIDED TO PATIENT AND REINFORCEMENT NEEDED. PATIENT TOLERATED MEDS WELL. PATIENT AWAKE AND MAKING VOICE "AHHH", UNABLE TO COMPREHEND. RESPIRATION EVEN AND UNLABORED ON 3LPM VIA NC, SPO2 AT 95% AT THIS TIME. FLACC 0. NO SIGNS OF DISTRESS NOTED. TELE MONITOR ATTACHED. BED IN LOW POSITION AND CALL LIGHT WITHIN REACH. BED ALARM ACTIVATED. SEIZURE PRECAUTION IN PLACE.
--- NOTE | 2019-06-22 18:17 | NUR ---
ADMINISTERED GLUCERNA 1.2 PRESCRIBED PER MD. NEW BAG AND LINE WERE CHANGED PRIOR TO ADMINISTRATION. PATIENT TOLERATED WELL. EDUCATED PATIENT ON MEDIATION REGIME. PT IS AWAKE AND RESTING IN BED. RESPIRATIONS EVEN AND UNLABORED WITH NO SOB OR RESPIRATORY DISTRESS. SAFETY MEASURES: HOB ELEVATED, BED IN LOWEST POSITION, CALL LIGHT WITHIN REACH, TELE MONITOR ATTACHED, SEIZURE PRECAUTIONS IN PLACE, AND BED ALARM ACTIVATED. WILL CONTINUE TO MONITOR
--- NOTE | 2019-06-22 19:15 | NUR ---
ENDORSED TO NIGHTSHIFT NURSE AT BEDSIDE. PATIENT IS LYING IN BED WITH THE LIGHTS DIMMED. RESPIRATIONS EVEN AND UNLABORED WITH NO SOB OR RESPIRATORY DISTRESS. FLACC 0. NO SIGNS OF DISTRESS NOTED. PATIENT IN STABLE CONDITION.
--- NOTE | 2019-06-22 19:17 | NUR ---
RECEIVED PT SLEEPING, OPEN EYES TO TOUCH, APHASIC, HX OF SPASTIC QUADRIPLEGIA, VITAL SIGNS STABLE, 98% ON O2 3L NC, IVF INFUSING WELL VIA RT UA PICC LINE, DRESSING DRY AND INTACT, G-TUBE FEEDING ON-GOING AT 70ML/H, HOB ELEVATED AT ALL TIMES, SAFETY MEASURES IN PLACE, ON SEIZURE PRECAUTION WITH SIDE RAILS UP AND PADDED, FREQUENT ROUNDS WILL BE MADE, REPOSITION Q2H AND OFFLOAD PRESSURE AREAS.
[2019-06-22 20:00] VITALS: BP 118/69
--- NOTE | 2019-06-22 21:00 | NUR ---
5 ML G-TUBE RESIDUAL NOTED, DUE MEDS ADMINISTERED, SUCTION SECRETION PRN WITH [place], SMALL AMOUNT SECRETION NOTED, ON CONTINUOUS PULSE OX, ALL NEEDS ATTENDED.
--- NOTE | 2019-06-22 22:10 | NUR ---
PT INCONTINENT OF URINE, PERINEAL CARE DONE AND REPOSITIONED, MONITORED CLOSELY.
[2019-06-23] VITALS: BP 123/84
--- NOTE | 2019-06-23 | NUR ---
PT SLEEPING, OPEN EYES TO TOUCH, VITAL SIGNS STABLE, FLACC-0, NO SIGNS OF DISTRESS, CONTINUE TO REPOSITION Q2H AND OFFLOAD PRESSURE AREAS, SUCTIONED SECRETION PRN, NO SEIZURE ACTIVITY NOTED, CONTINUE TO MONITOR CLOSELY.
[2019-06-23] MEDS: ALBUTEROL 0.083% 2.5 MG/3 ML NEBU INH SCH ×4 (00:29→11:44)
[2019-06-23] MEDS: DEXT 5% / NACL 0.45% 1,000 ML IV SCH (02:33)
--- NOTE | 2019-06-23 02:40 | NUR ---
PT ABLE TO MOVED NASAL CANNULA ON THE SIDE OF HIS FACE USING HIS RT HAND, SAT-90% ON ROOM AIR, PUT BACK NASAL CANNULA AND SAT WENT UP TO 96%, MONITORED CLOSELY.
[2019-06-23 04:00] VITALS: BP 119/82
[2019-06-23] MEDS: methylPREDNISolone SS 40 MG/ML VIAL IVP SCH (04:57)
[2019-06-23] MEDS: CLINDAMYCIN 600 MG in DEXTROSE 5% 50 ML IV SCH (04:57)
--- NOTE | 2019-06-23 05:00 | NUR ---
180ML G-TUBE RESIDUAL NOTED, WILL HOLD FEEDING FOR NOW, DUE MEDS ADMINISTERED, KEEP HOB ELEVATED AT ALL TIMES FOR ASPIRATION PRECAUTION, MONITORED CLOSELY.
[2019-06-23] MEDS: LEVOTHYROXINE 0.05 MG TAB GT SCH (06:19)
--- NOTE | 2019-06-23 06:30 | NUR ---
80 ML G-TUBE RESIDUAL NOTED, DUE MEDS ADMINISTERED, RESTARTED GT FEEDING AT 70ML/H WITH H20 FLUSH 150ML Q4H, HOB ELEVATED, NO SEIZURE ACTIVITY THE WHOLE SHIFT, NO RESP DISTRESS AT THIS TIME, MONITORED CLOSELY.
--- NOTE | 2019-06-23 07:12 | NUR ---
PT AWAKE, NO SIGNS OF DISTRESS, REPORT GIVEN TO GENIA MARIA FOR CONTINUITY OF CARE.
[2019-06-23 07:24] LABS: BASOPHILS % (AUTO) 0.1 % (0.0-2.0); EOSINOPHILS % (AUTO) 0.1 % (0.0-4.0); HEMATOCRIT 33.1 % (36-52); HEMOGLOBIN 10.8 g/dL (12.0-18.0); LYMPHOCYTES # (AUTO) 1.1 K/uL (2.0-11.5); LYMPHOCYTES % (AUTO) 11.7 % (20.5-51.1); MEAN CORPUSCULAR HEMOGLOBIN 29 pg (27-31); MEAN CORPUSCULAR HGB CONC 33 g/dL (33-37); MEAN CORPUSCULAR VOLUME 87.3 fL (80-94); MONOCYTES # (AUTO) 0.8 K/uL (0.8-1.0); MONOCYTES % (AUTO) 8.3 % (1.7-9.3); NEUTROPHILS # (AUTO) 7.5 K/uL (1.8-7.7); NEUTROPHILS % (AUTO) 79.8 % (42.2-75.2); PLATELET COUNT (AUTO) 301 K/uL (140-450); RED BLOOD CELL COUNT(AUTO) 3.79 MIL/uL (4.20-6.10); RED CELL DISTRIBUTION WIDTH 13.3 % (11.6-13.7); WHITE BLOOD COUNT (AUTO) 9.4 K/uL (4.8-10.8)
--- NOTE | 2019-06-23 07:25 | NUR ---
RECEIVED REPORT FROM NIGHT RN. PT IS FULL CODE, MULTIPLE ALLERGIES PRESENT ON PATIENTS CHART. PATIENT IS ON NASAL CANNULA 3L, AAOX1. PT HAS LEFT UA PICC LINE WITH NS INFUSING AT 50 ML/HR. SKIN IS INTACT, BEDBOUND AT BASELINE. PATIENT HAS A G-TUBE WITH GLUCERNA 1.2 RUNNING AT 70ML/HR. PT IS CURRENTLY RESTING IN BED, NO SIGNS OF DISTRESS. WILL REVIEW AND CONTINUE [facility] PLAN OF CARE.
[2019-06-23] MEDS: BUDESONIDE 0.5 MG/2 ML NEBU INH SCH (07:40)
[2019-06-23 08:00] VITALS: BP 119/82
[2019-06-23 08:52] LABS: CARBON DIOXIDE 35.2 mmol/L (21-32); CREATININE 0.6 mg/dL (0.7-1.3); POTASSIUM 4.2 mmol/L (3.5-5.1)
--- NOTE | 2019-06-23 09:30 | NUR ---
ADMINISTERED MORNING MEDICATION VIA G-TUBE. RESIDUAL PRIOR WAS <5ML. PATIENT TOLERATED WELL. NO COMPLAINTS AT THIS TIME
[2019-06-23] MEDS: METOCLOPRAMIDE 10 MG/10 ML SYRP UDC GT SCH (09:31)
[2019-06-23] MEDS: LACTULOSE 20 GM/30 ML UDC GT SCH (09:32)
[2019-06-23] MEDS: risperiDONE 1 MG TAB GT SCH (09:33)
[2019-06-23] MEDS: BACLOFEN 10 MG TAB GT SCH (09:33)
[2019-06-23] MEDS: LORATADINE 10 MG TAB GT SCH (09:34)
[2019-06-23] MEDS: CYCLOBENZAPRINE 10 MG TAB GT SCH (09:34)
[2019-06-23] MEDS: LACTOBACILLUS RHAMNOSUS GG 1 EACH CAP PO SCH (09:34)
[2019-06-23] MEDS: POLYETHYLENE GLYCOL 17 GM/PKT GT SCH (09:35)
[2019-06-23] MEDS: POTASSIUM CHLORIDE 20% 40 MEQ/15 ML UDC GT SCH (09:35)
[2019-06-23] MEDS: levETIRAcetam 100 MG/ML ORASYR GT SCH (09:35)
[2019-06-23] MEDS: SODIUM CHLORIDE 1 GM TAB GT SCH (09:43)
--- NOTE | 2019-06-23 11:44 | NUR ---
OROPHARYNX SUCTION FOR SMALL THIN PALE YELLOW SECRETIONS
[2019-06-23 12:00] VITALS: BP 120/81
--- NOTE | 2019-06-23 12:27 | NUR ---
BEGAN NEW TUBE FEEDING OF GLUCERNA 1.2 AT 70ML/HR.
--- NOTE | 2019-06-23 15:00 | NUR ---
REMOVED PICC LINE FROM UA, LINE INTACT. PATIENT IS TO BE PICKED UP SOON TO BE TAKEN TO [facility].
--- NOTE | 2019-06-23 15:56 | NUR ---
[facility] G-TUBE FEEDING DISCONNECTED, ALL BELONGINGS SENT HOME WITH PATIENT.
== END 2019-06-23 16:10 | DRG 720 ==
LOC: MED 12:15 → MTU 14:09 → MED 14:38 → MTU 15:25
PROVIDERS: ADMIT Preventive Medicine Preventive Medicine/Occupational Environmental Medicine; ATTEND Preventive Medicine Preventive Medicine/Occupational Environmental Medicine
PROC: 02HV33Z Insertion of Infusion Device into Superior Vena Cava, Percutaneous Approach (ICD-10-PCS; principal; 2019-06-21)
PROC: B548ZZA Ultrasonography of Superior Vena Cava, Guidance (ICD-10-PCS; 2019-06-21)
PROC: 5A09357 Assistance with Respiratory Ventilation, Less than 24 Consecutive Hours, Continuous Positive Airway Pressure (ICD-10-PCS; 2019-06-21)
DX: A41.9 Sepsis, unspecified organism (principal); J96.21 Acute and chronic respiratory failure with hypoxia; G82.50 Quadriplegia, unspecified; J15.3 Pneumonia due to streptococcus, group B; E44.0 Moderate protein-calorie malnutrition; R13.10 Dysphagia, unspecified; J44.0 Chronic obstructive pulmonary disease with (acute) lower respiratory infection; J45.901 Unspecified asthma with (acute) exacerbation; E83.52 Hypercalcemia; E87.1 Hypo-osmolality and hyponatremia; F79 Unspecified intellectual disabilities; D64.9 Anemia, unspecified; E03.9 Hypothyroidism, unspecified; E78.5 Hyperlipidemia, unspecified; R73.9 Hyperglycemia, unspecified; G40.909 Epilepsy, unspecified, not intractable, without status epilepticus; K21.9 Gastro-esophageal reflux disease without esophagitis; K44.9 Diaphragmatic hernia without obstruction or gangrene; Z86.73 Personal history of transient ischemic attack (TIA), and cerebral infarction without residual deficits; Z88.0 Allergy status to penicillin; Z93.1 Gastrostomy status; Z88.8 Allergy status to other drugs, medicaments and biological substances; Z79.899 Other long term (current) drug therapy; Z68.1 Body mass index [BMI] 19.9 or less, adult
CPT/HCPCS: 36415; 71045; 80048; 80053; 83605; 83880; 84484; 85025; 85651; 86140; 87040; 87070; 87081; 87205; 87804; 89220; 93005; 94640; 94644; 94660; 99285; C1751; J0456; J1885; J2060; J2920; J2930; J3490; J7030; J7042; J7060; J7613; J7620; J7626; J8597; Q0092

== ENCOUNTER 2019-06-27 15:18 | Inpatient (IN) | payer MEDICAID ==
[~2019-06-27] VITALS: Ht 175.3 cm; Wt 29.5 kg
[~2019-06-27 15:18] MED LIST changes: +ACET-1182 GT; +ALBU4TAB21 GT; +ATA10 GT; -ATA10 PO; +BACL10TA4 GT; +BISA-246 RC; -CYCL10TA14 PO; +CYCL5TAB GT; -DOXY100C9 PO; +FLONAS NS; +FLOR250 GT; +GUAI-646 GT; +IBUP-2213 GT; -LACT10CA1 PO; -LACT10SO1 PO; +LACT10SO93 GT; +LORA10TA19 GT; -LORA10TA19 PO; -MULT9LIQ5 PO; +NA P133E RC; +PUL.5N NEB; -RIS1 PO; +RISP0.5T3 GT; +SODI100076 GT; -SODI100076 PO
[2019-06-27] MEDS ORDERED: IBUPROFEN 600 MG TAB ONE (23:30)
[2019-06-28] MEDS ORDERED: MAG SULF 2000 MG/WATER PREMIX 50 ML IV ONE (16:38)
[2019-06-28] MEDS ORDERED: IBUPROFEN 600 MG TAB ONE (17:54)
[2019-06-28] MEDS ORDERED: BUDESONIDE 0.5 MG/2 ML NEBU INH ONE (18:57)
--- NOTE | 2019-06-28 19:30 | NUR ---
RECEIVED REPORT FROM DAY SHIFT NURSE. PT AWAKE AND ALERT, APHASIC, BEDBOUND. NO S/S OF PAIN OR SOB. PT HAS LEFT ARM FRACTURE WITH CAST. CONTRACTURES TO VANESA. UPPER EXT AND VANESA. LOWER EXT. IV TO LEFT FA, PATENT AND INTACT. SAFETY PRECAUTION IN PLACE.
--- NOTE | 2019-06-28 20:00 | NUR ---
PAGED DR. CRAWLEY. MADE AWARE PT STILL HERE AND [facility] DOESN'T WANT TO ACCEPT HIM BEC THEY WANT PRESCRIPTION FOR STRONGER PAIN MEDS. PER , HE WILL JUST DO IT TOMORROW.
--- NOTE | 2019-06-28 23:00 | NUR ---
PT PULLED OUT IV TO RIGHT FA. PT WAS CLEANED AND REPOSITIONED. PT KEPT COMFORTABLE.
[2019-06-29] VITALS: BP 120/63
--- NOTE | 2019-06-29 | NUR ---
HELD PT'S G-TUBE FEEDING. RESIDUAL 200 ML, COLOR GREEN FLUIDS.
--- NOTE | 2019-06-29 03:00 | NUR ---
GT RESIDUAL 5 ML, STARTED FEEDING AT 20 ML/HR. ASPIRATION PRECAUTION IN PLACE.
--- NOTE | 2019-06-29 03:30 | NUR ---
INSERTED IV LINE TO RIGHT HAND #22G. GOOD FLUSH AND BLOOD RETURN. PT TOLERATED PROCEDURE WELL.
--- NOTE | 2019-06-29 05:40 | NUR ---
PT SLEEPING BUT WAKES EASILY. NO S/S OF PAIN OR SOB. PT TOLERATING FEEDING WELL.
--- NOTE | 2019-06-29 07:10 | NUR ---
ENDORSED PT TO DAY SHIFT NURSE. PT IN STABLE CONDITION.
--- NOTE | 2019-06-29 07:15 | NUR ---
RECEIVED BED SIDE REPORT FROM EXTERNAL GRINDER NURSE,.PATIENT IS IN STABLE CONDITION AT THIS TIME.
[2019-06-29 08:00] VITALS: BP 159/76
[2019-06-29 08:03] LABS: BASOPHILS % (AUTO) 0.4 % (0.0-2.0); EOSINOPHILS # (AUTO) 0.2 K/uL (0-0.4); EOSINOPHILS % (AUTO) 2.3 % (0.0-4.0); HEMATOCRIT 33.1 % (36-52); LYMPHOCYTES # (AUTO) 0.9 K/uL (2.0-11.5); LYMPHOCYTES % (AUTO) 13.2 % (20.5-51.1); MEAN CORPUSCULAR HEMOGLOBIN 29 pg (27-31); MEAN CORPUSCULAR HGB CONC 33 g/dL (33-37); MEAN CORPUSCULAR VOLUME 86.2 fL (80-94); MONOCYTES # (AUTO) 0.6 K/uL (0.8-1.0); MONOCYTES % (AUTO) 9.2 % (1.7-9.3); NEUTROPHILS # (AUTO) 5.2 K/uL (1.8-7.7); NEUTROPHILS % (AUTO) 74.9 % (42.2-75.2); PLATELET COUNT (AUTO) 292 K/uL (140-450); RED BLOOD CELL COUNT(AUTO) 3.85 MIL/uL (4.20-6.10); RED CELL DISTRIBUTION WIDTH 13.6 % (11.6-13.7); WHITE BLOOD COUNT (AUTO) 6.9 K/uL (4.8-10.8)
[2019-06-29 08:53] LABS: ANION GAP 13.3 (8-16); CARBON DIOXIDE 28.1 mmol/L (21-32); CREATININE 0.5 mg/dL (0.7-1.3); POTASSIUM 3.4 mmol/L (3.5-5.1)
--- NOTE | 2019-06-29 09:30 | NUR ---
PATIENT LYING DOWN IN BED SLEEPING, AROUSABLE BY VOICE. NO DISTRESS NOTED. FLACC 0. CONDITION UNCHANGED. WILL CONTINUE TO MONITOR.
[2019-06-29] MEDS ORDERED: MULTIVITAMIN 5 ML ORASYR GT SCH (09:35)
[2019-06-29] MEDS ORDERED: POLYETHYLENE GLYCOL 17 GM/PKT GT SCH (09:35)
[2019-06-29] MEDS ORDERED: risperiDONE 1 MG TAB GT SCH ×2 (09:35→21:00)
[2019-06-29] MEDS ORDERED: LACTOBACILLUS RHAMNOSUS GG 1 EACH CAP GT SCH (09:40)
[2019-06-29] MEDS ORDERED: LACTULOSE 20 GM/30 ML UDC GT SCH (09:40)
[2019-06-29] MEDS ORDERED: BISACODYL 10 MG SUPP RC PRN (10:00)
[2019-06-29] MEDS ORDERED: HYDR-5122 PO (10:23)
[2019-06-29] MEDS ORDERED: FLUTICASONE NASAL 50 MCG/ACTUATION 16 GM BTL NS PRN (10:45)
[2019-06-29] MEDS ORDERED: ALBUTEROL SULFATE/IPRATROPIU 3 ML SOL IH PRN (10:50)
[2019-06-29] MEDS ORDERED: ACETAMINOPHEN 650 MG/20.3 ML UDC GT PRN (10:50)
--- NOTE | 2019-06-29 12:00 | NUR ---
PATIENT REMOVED IV LINE ON RIGHT FINGER. PATIENT TO GO BACK TO [facility] LATER. WILL NOT INSERT NEW IV AT THIS TIME. WILL CONTINUE TO MONITOR.
[2019-06-29] MEDS ORDERED: DEXT 5% / NACL 0.45% 1,000 ML IV SCH (12:55)
[2019-06-29] MEDS ORDERED: IBUPROFEN 600 MG TAB GT PRN (12:55)
[2019-06-29] MEDS ORDERED: METOCLOPRAMIDE 10 MG/10 ML SYRP UDC GT SCH (13:00)
[2019-06-29] MEDS ORDERED: CYCLOBENZAPRINE 10 MG TAB GT SCH (13:00)
[2019-06-29] MEDS ORDERED: BACLOFEN 10 MG TAB GT SCH (13:00)
--- NOTE | 2019-06-29 15:10 | NUR ---
GENIA PURI FROM [facility] AT BEDSIDE TO TAKE PATIENT BACK TO [facility]. DISCHARGE INSTRUCTIONS PROVIDED TO PATIENT/KHUSHI IN PREFERRED LANGUAGE OF [place]. DISCHARGE INSTRUCTIONS ON NEW/CHANGED MEDICATION REGIMEN, FOLLOW-UP WITH Elana SHELDON AND ORTHOPEDIC MD FOR LEFT ARM FRACTURE. KHUSHI VERBALIZED COMPLETE UNDERSTANDING. ASSISTED KHUSHI TO DRESS PATIENT AND TO HIS WHEELCHAIR. PATIENT DISCHARGED TO [facility] AT THIS TIME IN TRANSPORT VEHICLE IN STABLE CONDITION.
[2019-06-29] MEDS ORDERED: BUDESONIDE 0.25 MG/2 ML NEBU INH SCH (19:30)
[2019-06-29] MEDS ORDERED: levETIRAcetam 100 MG/ML ORASYR GT SCH (21:00)
[2019-06-30] MEDS ORDERED: LEVOTHYROXINE 0.05 MG TAB GT SCH (07:30)
[2019-06-30] MEDS ORDERED: LACTULOSE 20 GM/30 ML UDC GT SCH (09:00)
[2019-06-30] MEDS ORDERED: POLYETHYLENE GLYCOL 17 GM/PKT GT SCH (09:00)
[2019-06-30] MEDS ORDERED: MONTELUKAST SODIUM 10 MG TAB GT SCH (09:00)
[2019-06-30] MEDS ORDERED: LACTOBACILLUS RHAMNOSUS GG 1 EACH CAP GT SCH (09:00)
[2019-06-30] MEDS ORDERED: POTASSIUM CHLORIDE 20% 40 MEQ/15 ML UDC GT SCH (09:00)
[2019-06-30] MEDS ORDERED: MULTIVITAMIN 5 ML ORASYR GT SCH (09:00)
[2019-06-30] MEDS ORDERED: LORATADINE 10 MG TAB GT SCH (09:00)
[2019-06-30 19:27] LABS: ANION GAP 12.5 (8-16); CARBON DIOXIDE 29.4 mmol/L (21-32); CREATININE 0.7 mg/dL (0.7-1.3); MAGNESIUM 1.7 mg/dL (1.8-2.4); PHOSPHORUS 4.3 mg/dL (2.5-4.9); POTASSIUM 3.9 mmol/L (3.5-5.1)
[2019-07-03 21:25] LABS: HEMATOCRIT 33.1 % (36-52); HEMOGLOBIN 10.8 g/dL (12.0-18.0); MEAN CORPUSCULAR HEMOGLOBIN 29 pg (27-31); MEAN CORPUSCULAR HGB CONC 33 g/dL (33-37); PLATELET COUNT (AUTO) 298 K/uL (140-450); RED CELL DISTRIBUTION WIDTH 13.9 % (11.6-13.7); WHITE BLOOD COUNT (AUTO) 9.8 K/uL (4.8-10.8)
[2019-07-03 21:26] LABS: BASOPHILS % (AUTO) 0.4 % (0.0-2.0); EOSINOPHILS # (AUTO) 0.2 K/uL (0-0.4); LYMPHOCYTES # (AUTO) 1.1 K/uL (2.0-11.5); LYMPHOCYTES % (AUTO) 11.7 % (20.5-51.1); MONOCYTES # (AUTO) 0.7 K/uL (0.8-1.0); MONOCYTES % (AUTO) 7.1 % (1.7-9.3); NEUTROPHILS # (AUTO) 7.7 K/uL (1.8-7.7); NEUTROPHILS % (AUTO) 78.8 % (42.2-75.2)
== END 2019-06-29 15:05 | disposition home or self-care (01) | DRG 342 ==
LOC: MED 15:18 → MTU 19:00
PROVIDERS: ADMIT Preventive Medicine Preventive Medicine/Occupational Environmental Medicine; ATTEND Preventive Medicine Preventive Medicine/Occupational Environmental Medicine
DX: S42.302A Unspecified fracture of shaft of humerus, left arm, initial encounter for closed fracture (principal); G82.50 Quadriplegia, unspecified; R13.10 Dysphagia, unspecified; E87.1 Hypo-osmolality and hyponatremia; E03.9 Hypothyroidism, unspecified; F79 Unspecified intellectual disabilities; G40.909 Epilepsy, unspecified, not intractable, without status epilepticus; J45.909 Unspecified asthma, uncomplicated; K21.9 Gastro-esophageal reflux disease without esophagitis; K44.9 Diaphragmatic hernia without obstruction or gangrene; Z86.73 Personal history of transient ischemic attack (TIA), and cerebral infarction without residual deficits; Z88.0 Allergy status to penicillin; Z88.8 Allergy status to other drugs, medicaments and biological substances; Z91.011 Allergy to milk products
CPT/HCPCS: 36415; 80048; 83735; 84100; 85025; 87081; 94640; 99285; J3475; J7626; J8597